=== PATIENT | male | born 1955 | race Caucasian/White ===

== ENCOUNTER 2018-02-17 09:24 | Inpatient (IN) | payer MEDICARE, MEDICAID ==
--- NOTE | 2018-02-17 10:41 | RAD ---
PORTABLE CHEST ONE VIEW: Date: 02-17-18 Time: 10:30 a.m. History: Fever. FINDINGS/IMPRESSION: The heart size is enlarged. The aorta is tortuous. There is mild pulmonary vascular congestion. A mil d infiltrate may be present at the right lung base. No pneumothoraces or large effusions are seen. POS: [facility]
[2018-02-17] MEDS ORDERED: ISOVUE-370 76%-LOCM 1 ML ONE (10:48)
[2018-02-17 10:55] LABS: #Basophils 0.2 thou/uL (0.0-0.2); #Eosinphils 0.1 thou/uL (0.0-0.7); #Lymphocytes 1.9 thou/uL (1.20-3.40); #Monocytes 1.4 thou/uL (0.11-0.59); #Neutrophils 13.6 thou/uL (1.40-6.50); %Basophils 0.9 % (0.0-1.0); %Eosinophils 0.6 % (0.0-10.0); %Lymphocytes 11.2 % (21.0-51.0); %Monocytes 8.3 % (0.0-10.0); Hemoglobin 10.7 g/dL (14.0-18.0); Mean Corpuscular HGB CONC 31.6 g/dL (32.0-36.0); Mean Corpuscular Hemoglobin 28.2 pg (27.0-31.0); Mean Corpuscular Volume 89.2 fL (78.0-98.0); Mean Platelet Volume 6.6 fL (7.4-10.4); Platelet Count 252 thou/uL (130-400); RBC Distribution Width 15.3 % (11.5-14.5); Red Blood Cell (RBC) Count 3.79 mill/uL (4.70-6.10); White Blood Cell (WBC) Count 17.2 thou/uL (4.8-10.8)
[2018-02-17 11:05] LABS: Bilirubin Negative (Negative); Blood, Urine Small (Negative); Glucose, Urine (Dipstick) Negative (Negative); Leukocyte Negative (Negative); Nitrite Negative (Negative); Protein, Urine (Dipstick) 30 mg/dL (Neg-Trace); Urobilinogen 0.2 mg/dL (0.2-1.0)
[2018-02-17 11:07] LABS: Clarity CLEAR (Clear)
[2018-02-17 11:12] LABS: Bacteria/HPF None Seen HPF (None Seen); Hyaline Casts/LPF NONE SEEN LPF (0-3 Hyaline); Squamous Epithelial 0-3 HPF (0-3); WBC/HPF None Seen HPF (0-3)
[2018-02-17 11:20] LABS: ALT (SGPT) 8 U/L (8-55); AST (SGOT) 22 U/L (5-34); Albumin 3.1 g/dL (3.4-4.8); Alkaline Phosphatase 74 U/L (40-150); Anion Gap 11 mmol/L (10-20); BUN (Urea Nitrogen) 18 mg/dL (8.4-25.7); Bilirubin, Total 0.3 mg/dL (0.2-1.2); CK (CPK) 28 U/L (30-200); Calc. Creatinine Clearance 0 mL/min (70-130); Calcium 9.2 mg/dL (7.8-10.44); Carbon Dioxide 26 mmol/L (23-31); Chloride 104 mmol/L (98-107); Estimated GFR-MDRD 88; Globulin 3.9 g/dL (2.4-3.5); Glucose 109 mg/dL (80-115); Lipase 19 U/L (8-78); Potassium 4.2 mmol/L (3.5-5.1); Sodium 137 mmol/L (136-145)
[2018-02-17 11:21] LABS: CKMB 0.7 ng/mL (0-6.6); Troponin I Less than 0.010 ng/mL (< 0.028)
[2018-02-17] MEDS ORDERED: Piperacillin/Tazobactam 4.5 GM VIAL ONE (11:40)
--- NOTE | 2018-02-17 12:46 | CT ---
CT BRAIN WITHOUT CONTRAST: HISTORY: Altered mental status. FINDINGS: No evidence of acute infarct, hemorrhage, midline shift, or abnormal extraaxial fluid collections are seen. The ventricular size is more prominent than expected for the degree of atrophy. The possibil ity of normal-pressure hydrocephalus should be considered. No acute infarct, hemorrhage, midline rosalie ft, or abnormal extraaxial fluid collections are seen. The bony calvarium is intact. There is mucos al disease in the paranasal sinuses. IMPRESSION: 1. No CT evidence of acute intracranial process. 2. Probable normal-pressure hydrocephalus. POS: [facility]
--- NOTE | 2018-02-17 13:10 | CT ---
CT ABDOMEN AND PELVIS WITH IV CONTRAST: HISTORY: Abdominal pain. FINDINGS: Minimal bilateral pleural fluid. Mild bibasilar lung atelectasis. Liver, spleen, kidneys, adrenal g lands, and pancreas have a normal CT appearance. Calcification within the arterial structures. Retr oaortic left renal vein. A small amount of free fluid within the lower abdomen and pelvis. Urinary bladder is decompressed by a Roberts catheter and shows marked thickening of the bladder escobedo. There is mild distention of each ureter and enhancement of each ureteral wall. No hyperdense stones are ev ident. IMPRESSION: 1. Thickening of the urinary bladder wall and ureteral escobedo. Clinical correlation regarding other signs and symptoms of urinary tract inflammation/infection is required. 2. A small amount of free fluid within the abdomen and pelvis was nonspecific. No other areas of in flammation are apparent. 3. Atherosclerosis. POS: [facility]
[2018-02-17 15:15] LABS: Lactic Acid 1.1 mmol/L (0.5-2.2)
[2018-02-17] MEDS ORDERED: Ondansetron ODT 4 MG TAB PO PRN (15:58)
[2018-02-17] MEDS ORDERED: Acetaminophen 325 MG TAB PO PRN (15:58)
[2018-02-17] MEDS ORDERED: Vancomycin HCl 750 MG in Sodium Chloride 0.9% 250 ML 250 ML IVPB SCH (17:00)
--- NOTE | 2018-02-17 17:03 | PDOC.FPRHP ---
- History of Present Illness Chief Complaint: Fever and AMS History of Present Illness: Mr Sanchez is a 62yo male with pmh of MR, DMII, seizure disorder who presented by EMS from [facility] nursing facility for fever up to 102.0 and AMS. Per ED report the assisted he is usually verbal has but has not been today, also refusing to eat. EMS reports being called due to pt tachycardia and hypotensive. Pt currently denies pain anywhere but his abdomen and left knee. ED Course: Levaquin 750mg, 3L NS, Vanc, Zosy, - Allergies/Adverse Reactions Allergies Allergy/AdvReac Type Severity Reaction Status Date / Time metformin Allergy Unverified 02/17/18 16:00 - Home Medications Medication Instructions Recorded Confirmed Type Finasteride 5 mg PO DAILY 02/17/18 02/17/18 History Folic Acid 2 tablet PO DAILY 02/17/18 02/17/18 History Gabapentin 300 mg PO TID 02/17/18 02/17/18 History Insulin Aspart [Novolog] 20 unit SQ AC 02/17/18 02/17/18 History Levothyroxine Sodium [Synthroid] 1 tablet PO DAILY 02/17/18 02/17/18 History Paterson-3 Acid Ethyl Esters [Lovaza] 1 gm PO BID 02/17/18 02/17/18 History Potassium Chloride 2 capsule PO BID 02/17/18 02/17/18 History Ranitidine HCl 150 mg PO DAILY 02/17/18 02/17/18 History Rosuvastatin Calcium [Crestor] 10 mg PO HS 02/17/18 02/17/18 History Tamsulosin HCl 2 capsule PO HS 02/17/18 02/17/18 History Valproic Acid (As Sodium Salt) 250 mg PO BID 02/17/18 02/17/18 History [Depakene] sitaGLIPtin Phosphate [Januvia] 1 tablet PO DAILY 02/17/18 02/17/18 History - History PMHx: Chronic ulcer of foot and sacrum, Chronic constipation, MR, HLD, HTN, DMII , Seizures, Hypothyroidism, chlamydial conjunctivitis, GERD, peripheral neuropathy PSHx: Dorsal slit fo rphimosis and urethral dilation for stricture FHx: None Social: Lives in assisted since 2008. Sister is POA. - Review of Systems ROS unobtainable: other (due to cognitive impairment) Musculoskeletal: reports: pain (knee and abdomen) - Vital signs BP: 103/63 HR: 82 RR: 20 Tmax: 97.8 Pox: 93% on RA Wt: 78kg - Physical Exam Constitutional: NAD HEENT: normocephalic and atraumatic, other (pt not cooperative for ear exam. Dry mucous membranes with poor oral hygiene. Right eye:) Neck: trachea midline Heart: RRR, other (radial pulses 2+) Lungs: CTAB, no respiratory distress, no wheezing Abdomen: soft, bowel sounds present, other (Painful to palpation in all 4 quadrants) Musculoskeletal: other -Musculoskeletal: atrophy of LE muscles Neurological: other (pt not able to move b/l LE, no patellar reflexes.) Skin: capillary refill <2 seconds, other (Sacral ulcer stage 4) Psychiatric: other (Not responding to questions. Pt with severe cognitive impairment) Additional comment: Mooney Catheter in place on arrival FMR H&P: Results - Labs Result Diagrams: 02/17/18 10:45 02/17/18 10:45 Lab results: WBC 17.2 thou/uL (4.8-10.8) H 02/17/18 10:45 Hgb 10.7 g/dL (14.0-18.0) L 02/17/18 10:45 Hct 33.9 % (42.0-52.0) L 02/17/18 10:45 MCV 89.2 fL (78.0-98.0) 02/17/18 10:45 Plt Count 252 thou/uL (130-400) 02/17/18 10:45 Neutrophils % 79.0 % (42.0-75.0) H 02/17/18 10:45 Sodium 137 mmol/L (136-145) 02/17/18 10:45 Potassium 4.2 mmol/L (3.5-5.1) 02/17/18 10:45 Chloride 104 mmol/L (98-107) 02/17/18 10:45 Carbon Dioxide 26 mmol/L (23-31) 02/17/18 10:45 BUN 18 mg/dL (8.4-25.7) 02/17/18 10:45 Creatinine 0.88 mg/dL (0.6-1.3) 02/17/18 10:45 Glucose 109 mg/dL (80-115) 02/17/18 10:45 Lactic Acid 1.1 mmol/L (0.5-2.2) 02/17/18 14:53 Calcium 9.2 mg/dL (7.8-10.44) 02/17/18 10:45 Total Bilirubin 0.3 mg/dL (0.2-1.2) 02/17/18 10:45 AST 22 U/L (5-34) 02/17/18 10:45 ALT 8 U/L (8-55) 02/17/18 10:45 Alkaline Phosphatase 74 U/L (40-150) 02/17/18 10:45 Ammonia 35 umol/L (18-72) 02/17/18 10:45 Creatine Kinase 28 U/L (30-200) L 02/17/18 10:45 CK-MB (CK-2) 0.7 ng/mL (0-6.6) 02/17/18 10:45 Serum Total Protein 7.0 g/dL (5.8-8.1) 02/17/18 10:45 Albumin 3.1 g/dL (3.4-4.8) L 02/17/18 10:45 Lipase 19 U/L (8-78) 02/17/18 10:45 Urine Ketones Negative mg/dL (Negative) 02/17/18 10:40 Urine Blood Small (Negative) H 02/17/18 10:40 Urine Nitrite Negative (Negative) 02/17/18 10:40 Ur Leukocyte Esterase Negative (Negative) 02/17/18 10:40 Urine RBC 4-6 HPF (0-3) 02/17/18 10:40 Urine WBC None Seen HPF (0-3) 02/17/18 10:40 Ur Squamous Epith Cells 0-3 HPF (0-3) 02/17/18 10:40 Urine Bacteria None Seen HPF (None Seen) 02/17/18 10:40 - Radiology Interpretation CT scan - abdomen Status: report reviewed by me Additional comment: Thickening of urinary bladder wall and ureteral escobedo. Small amt of free fluid w /i abdomen and pelvic nonspecific. Atherosclerosis CT scan - head Status: report reviewed by me Additional comment: No evidence of acute intracranial process. Probable normal pressure hydrocephalus Chest x-ray Status: report reviewed by me Additional comment: Heart size is enlarged. Aorta tortuous. Mild pulm vascular congestion. Mild infiltrate in Right lung base. FMR H&P: A/P - Problem List (1) Cognitive impairment Current Visit: Yes Status: Acute Code(s): R41.89 - OTH SYMPTOMS AND SIGNS W COGNITIVE FUNCTIONS AND AWARENESS (2) Leukocytosis Current Visit: Yes Status: Acute Code(s): D72.829 - ELEVATED WHITE BLOOD CELL COUNT, UNSPECIFIED (3) Normocytic anemia Current Visit: Yes Status: Acute Code(s): D64.9 - ANEMIA, UNSPECIFIED (4) Pneumonia Current Visit: Yes Status: Acute Code(s): J18.9 - PNEUMONIA, UNSPECIFIED ORGANISM (5) Sepsis Current Visit: Yes Status: Acute Code(s): A41.9 - SEPSIS, UNSPECIFIED ORGANISM - Plan Sepsis 2/2 HCAP - AMS, initially tachycardic, febrile, hypotensive with leukocytosis - Recent hospitalization and lives in nursing facility - Continue Zosyn, vanc. Adding levaquin for atypical coverage - UA no sign of infection - Ucx, Bcx pending - LR @ 130 - Will admit to [facility] - monitor urine output Abdominal Pain - CT: Thickening of urinary bladder wall and ureteral escobedo. Chronic Sacral Ulcer stage 4 - Consulted wound care - wound care consulted - nutrition consulted for recommendations DMII - Continue home Novolog and Glargine - Mod SSI - ACHS accuchecks - Hypoglycemic protocol Leukocytosis - 17.2 - likely 2/2 infection T2DM - continue home meds - accuchecks - mild SSI Normocytic anemia, chronic - Hg 10.7, at baseline when compared to previous - Monitor CBC Mental retardation - Seems to be back at baseline once moved up to [facility] Hypothyroid - Continue home synthroid GERD - Continue home meds HLD - Continue home statin HTN - Continue home lisinopril Hx urine retention - Mooney in place - Continue home flomax Chronic constipation - Continue home bowel regimen Epilepsy - Continue home Valproic acid FMR H&P: [place] - Pertinent history 62 yo M with hx of recent hospitalization for urosepsis and hx of MR, DM2, Hypothyroid, HLD, HTN, Chlamydial conjunctivitis here from his assisted with complaint by staff of AMS. He is apparently reasonably interactive at baseline, but today was difficult to arouse. At the time of admission pt would only answer yes and no questions. He denies chest pain, abdominal pain, suprapubic pain, SOB, and cough. He has a indwelling mooney that was placed during his previous hospitalization by urology. Upon arrival to ER he was febrile, had an elevated WBC count, and was at times hypotensive. He was given Vanc and Zosyn. Cultures were collected from blood and urine - Pertinent findings Vitals BP 107/72 HR 134 Resp 24 TMax 102.3 O2 Sat 96% on RA Labs WBC 17.2, 79% neutrophil Hb 10.7 Lactic acid 1.1 CXR - enlarged heart, mild pulmonary vascular congestion, possible RLL infiltrate CT brain - no acute process. possible NPH CT abd/pelv - thickening of bladder and uretheral wall. Small amount of non specific free fluid in abd/pelvis PE General: A&O x0, will only answer yes and no questions. Pt has significant MR, unclear what baseline is HEENT: Atraumatic normocephalic. L eye has yellow crusting CV - tachycardia, no murmurs Chest: No crackles or rales. Possible decreased breath sounds in RLL, however due to habitus auscultation is difficult Abdomen: Pt moves examiners hand when palpated, however this is a similar response to physical touch anywhere. When distracted, there is no guarding or painful reaction. BS x4 Skin: pt has stage 4 sacral ulcer, packed and clean - Plan Date/Time: 02/17/18 1702 Jarad Santiago DO, have evaluated this patient and agree with findings/plan as outlined by internal affairs commander resident. Pertinent changes/additions are listed here. Sepsis - unclear etiology at this time, most likely source is HCAP vs possible abdominal infection related to a surgical complication - Blood and urine cultures are pending. UA does not appear infected. - Continue vanc and zosyn, will add levaquin - Consult urology in am - After resuscitation BP and HR have stabilized. Monitor in IMCU. DM2 - continue home meds, ACHS accucheck, low carb diet HTN - Continue home meds Conjunctivitis - this is apparently long standing and possibly chlamydial. Will discuss with PCP for further information regarding previous treatment Hypothyroid - home synthroid Seizure disorder - Home valproic acid BPH - home finasteride Dispo: Guarded, continue care in IMCU and treat with broad spectrum abx until source can be better identified. Attending Addendum - Attending Addendum Date/Time: 02/17/182126 I personally evaluated the patient and discussed the management with the team. I agree with and repeated the History, Examination, Assessment and Plan documented above with any addition or exceptions noted below. Pt with severe cognitive disability. On exam today his mental status is very similar to when I saw him for sepsis on last admission. Unable to complete ROS 2/2 previously mentioned comorbidity. Exam relatively nonfocal. RRR, no murmur, Dec BS bilateral bases but no inc wob or crackles. BS+, NTTP, mild distension. Antibiotics with extended coverage for recent hospitalization. BC and UC. Reexamine his preexisting decubitus ulcer, which was stage 3. Continue fluids and closely monitor.
[2018-02-17] MEDS ORDERED: HumaLOG 300 UNITS/3 ML VIAL SC PRN ×2 (17:04→17:35)
[2018-02-17] MEDS ORDERED: Dextrose 5% in Water 1,000 ML IV PRN (17:04)
[2018-02-17] MEDS: Piperacillin/Tazobactam 4.5 GM in Sodium Chloride 0.9% 100 ML IVPB SCH (18:14)
[2018-02-17] MEDS: Lactated Ringer's 1,000 ML IV SCH ×2 (18:14→23:40)
[2018-02-17] MEDS: Valproate Sodium 250 MG in Sodium Chloride 0.9% 100 ML IVPB SCH (20:36)
[2018-02-17] MEDS: Gabapentin 300 MG CAP PO SCH (20:43)
[2018-02-17] MEDS: Potassium Chloride 10 MEQ TAB PO SCH (20:43)
[2018-02-17] MEDS: Fish Oil 1,000 MG CAP PO SCH (20:43)
[2018-02-17] MEDS: Rosuvastatin 10 MG TAB PO SCH (20:43)
[2018-02-17] MEDS: Tamsulosin HCl 0.4 MG CAP PO SCH (20:44)
[2018-02-17] MEDS ORDERED: Valproic Acid 250 MG CAP PO SCH (21:00)
[2018-02-18] MEDS: Piperacillin/Tazobactam 4.5 GM in Sodium Chloride 0.9% 100 ML IVPB SCH ×4 (00:37→16:13)
[2018-02-18 04:28] LABS: Anion Gap 11 mmol/L (10-20); BUN (Urea Nitrogen) 14 mg/dL (8.4-25.7); Calc. Creatinine Clearance 143 mL/min (70-130); Calcium 8.7 mg/dL (7.8-10.44); Carbon Dioxide 25 mmol/L (23-31); Chloride 109 mmol/L (98-107); Estimated GFR-MDRD Greater than 90; Potassium 3.7 mmol/L (3.5-5.1); Sodium 141 mmol/L (136-145)
[2018-02-18 04:30] LABS: Glucose 51 mg/dL (80-115)
[2018-02-18] MEDS: Vancomycin HCl 1.25 GM in Sodium Chloride 0.9% 250 ML 250 ML IVPB SCH ×2 (04:30→16:14)
[2018-02-18 04:37] LABS: #Eosinphils 0.1 thou/uL (0.0-0.7); #Lymphocytes 2.1 thou/uL (1.20-3.40); #Monocytes 0.8 thou/uL (0.11-0.59); %Basophils 0.3 % (0.0-1.0); %Eosinophils 1.1 % (0.0-10.0); %Lymphocytes 20.9 % (21.0-51.0); %Monocytes 8.2 % (0.0-10.0); %Neutrophils 69.5 % (42.0-75.0); Hemoglobin 9.4 g/dL (14.0-18.0); Mean Corpuscular HGB CONC 31.5 g/dL (32.0-36.0); Mean Corpuscular Volume 88.9 fL (78.0-98.0); Mean Platelet Volume 6.5 fL (7.4-10.4); Platelet Count 181 thou/uL (130-400); RBC Distribution Width 15.1 % (11.5-14.5); Red Blood Cell (RBC) Count 3.36 mill/uL (4.70-6.10); White Blood Cell (WBC) Count 10.1 thou/uL (4.8-10.8)
[2018-02-18] MEDS: Dextrose 50% Abboject 50 ML SYRINGE SLOW IVP PRN ×2 (04:38→11:46)
[2018-02-18] MEDS: Levothyroxine Sodium 100 MCG TAB PO SCH (06:45)
[2018-02-18] MEDS: HumaLOG 300 UNITS/3 ML VIAL SC SCH ×3 (07:55→15:52)
[2018-02-18] MEDS: Alogliptin 25 MG TAB PO SCH (08:47)
[2018-02-18] MEDS: Famotidine 20 MG TAB PO SCH (08:47)
[2018-02-18] MEDS: Folic Acid 1 MG TAB PO SCH (08:48)
[2018-02-18] MEDS: Finasteride 5 MG TAB PO SCH (08:48)
[2018-02-18] MEDS: Potassium Chloride 10 MEQ TAB PO SCH ×2 (08:48→19:24)
[2018-02-18] MEDS: Fish Oil 1,000 MG CAP PO SCH ×2 (08:48→19:23)
[2018-02-18] MEDS: Gabapentin 300 MG CAP PO SCH ×3 (08:48→19:23)
[2018-02-18] MEDS: Lactated Ringer's 1,000 ML IV SCH ×2 (09:06→13:55)
[2018-02-18] MEDS: Enoxaparin Sodium 40 MG/0.4 ML SYRINGE SC SCH (09:07)
--- NOTE | 2018-02-18 09:07 | PDOC.FM ---
- Subjective Subjective: Pt seen at bedside this am. He is resting comfortably and will respond to questions. Pt is baseline MR. There were no acute events over night. Pt denies pain or new symptoms - Objective MAR Reviewed: Yes Vital Signs & Weight: Vital Signs (12 hours) Temp Pulse Resp BP Pulse Ox 02/18/18 07:46 99 02/18/18 07:33 97.4 F L 81 17 122/77 96 02/18/18 04:00 97.6 F 84 18 108/70 96 02/18/18 00:00 97.8 F 90 18 117/78 94 L Weight Weight 76.839 kg I&O: 02/17/18 02/18/18 02/19/18 06:59 06:59 06:59 Intake Total 1850 Output Total 1200 Balance 650 Result Diagrams: 02/18/18 03:34 02/18/18 03:34 <Jarad Kramer - Last Filed: 02/18/18 09:05> - Objective Vital Signs & Weight: Vital Signs (12 hours) Temp Pulse Resp BP Pulse Ox 02/18/18 10:53 98.6 F 67 16 123/79 98 02/18/18 07:46 99 02/18/18 07:33 97.4 F L 81 17 122/77 96 02/18/18 04:00 97.6 F 84 18 108/70 96 Weight Admit Weight 75.432 kg Weight 76.839 kg I&O: 02/17/18 02/18/18 02/19/18 06:59 06:59 06:59 Intake Total 1850 Output Total 1200 Balance 650 Result Diagrams: 02/18/18 03:34 02/18/18 03:34 <Madison Hunter - Last Filed: 02/18/18 13:48> Phys Exam - Physical Examination Constitutional: NAD HEENT: moist MMs Neck: no JVD Respiratory: no wheezing Decreased air movement on L Cardiovascular: RRR, no significant murmur Gastrointestinal: soft, positive bowel sounds Suprapubic TTP Musculoskeletal: no edema Neurological: moves all 4 limbs Deviation from normal: MR at baseline. A&O x0 Deviation from normal: Sacral stage 4 ulcer clean and dressed <Jarad Kramer - Last Filed: 02/18/18 09:05> Dx/Plan (1) Sepsis Code(s): A41.9 - SEPSIS, UNSPECIFIED ORGANISM Status: Acute (2) Pneumonia Code(s): J18.9 - PNEUMONIA, UNSPECIFIED ORGANISM Status: Acute (3) Cognitive impairment Code(s): R41.89 - OTH SYMPTOMS AND SIGNS W COGNITIVE FUNCTIONS AND AWARENESS Status: Acute (4) Leukocytosis Code(s): D72.829 - ELEVATED WHITE BLOOD CELL COUNT, UNSPECIFIED Status: Acute (5) Normocytic anemia Code(s): D64.9 - ANEMIA, UNSPECIFIED Status: Acute (6) GERD (gastroesophageal reflux disease) Code(s): K21.9 - GASTRO-ESOPHAGEAL REFLUX DISEASE WITHOUT ESOPHAGITIS Status: Acute (7) Hypothyroid Code(s): E03.9 - HYPOTHYROIDISM, UNSPECIFIED Status: Acute (8) HLD (hyperlipidemia) Code(s): E78.5 - HYPERLIPIDEMIA, UNSPECIFIED Status: Acute (9) Mental retardation Code(s): F79 - UNSPECIFIED INTELLECTUAL DISABILITIES Status: Acute (10) DM2 (diabetes mellitus, type 2) Status: Acute (11) Sacral decubitus ulcer, stage IV Code(s): L89.154 - PRESSURE ULCER OF SACRAL REGION, STAGE 4 Status: Acute (12) Conjunctivitis Code(s): H10.9 - UNSPECIFIED CONJUNCTIVITIS Status: Acute - Plan Plan: Sepsis 2/2 HCAP - Pt doing much better this morning. Initial cultures are negative. Continue abx until finalization of cx, then change to narrow spectrum - Recent hospitalization and lives in nursing facility - Continue Zosyn, vanc. Adding levaquin for atypical coverage - Likely ready to move to floor this afternoon - monitor urine output - free fluid found on CT may also be source, consider uro consult who recently did a cystoscopy Abdominal Pain - CT: Thickening of urinary bladder wall and ureteral escobedo. - no evidence of bladder infection or enteric infection - Pt does not appear to be tender when distracted Chronic Sacral Ulcer stage 4, present on admission - Consulted wound care - wound care consulted - nutrition consulted for recommendations DMII - Continue home Novolog and Glargine - Mod SSI - ACHS accuchecks - Hypoglycemic protocol Leukocytosis, resolved - Monitor CBC Normocytic anemia, chronic - Hg 10.7, at baseline when compared to previous - Monitor CBC Mental retardation - at baseline Hypothyroid - Continue home synthroid GERD - Continue home meds HLD - Continue home statin HTN - Continue home lisinopril Hx urine retention - Roberts in place - Continue home flomax Chronic constipation - Continue home bowel regimen Epilepsy - Continue home Valproic acid Conjunctivitis - after discussion with PCP, this is apparently chronic. Unclear etiology. Consider outpatient ophtho consult Dispo: pt is currently stable. Continue to monitor and treat for a likely HCAP. Likely LOS greater than 48 hours. <Jarad Kramer - Last Filed: 02/18/18 09:05> Attending Addendum - Attending Addendum Date/Time: 02/18/18 7234 I personally evaluated the patient and discussed the management with Dr. Kramer I agree with the History, Examination, Assessment and Plan documented above with any addition or exceptions noted below. 62 yo male with multiple medical conditions admitted for sepsis 2/2 pulmonary vs geniourinary source HD#1 Doing well this morning. No complaints per patient overnight. No difficulty with breathing at present. Has indwelling urinary catheter for several weeks. VS reviewed. Labs reviewed. Imaging reviewed. Suspected sepsis at presentation: Pulmonary vs urinary source. Started on emperic antibiotics at admission. Hypotensive but improved with fluid resuscitation. Procal to be add this morning. Not done on admission. Cultures pending. Afebrile. Lactate WNL. Urine strep and legionella pending. Urinary retension with indwelling catheter: Hx of VUR as well. Will follow up with urology if plan to perform suprapubic. Will change catheter. UA not impressive for infection. Culture pending. Asymptomatic. CT positive for bladder wall and ureter thickening. Normal pressure hydrocephalus: Moderate cognitive disability. Needs assistance with ADLS. Chronic skin ulcers: Due to sedentary lifestyle and cognitive disability ulcers present. Wound care to manage. Adjust home meds as needed based on other co-morbidities. Monitor glucose. Correct with insulin. Awaiting speech to evaluate swallow. Possible transfer to medical later this afternoon. De-escalate antibiotics YUKI based on clinical symptoms and results. ABrmiMD <Madison Hunter - Last Filed: 02/18/18 13:48>
--- NOTE | 2018-02-18 10:28 | CON ---
DATE OF CONSULTATION: 02/18/2018 HISTORY: Nima Sanchez is a 62-year-old mentally retarded gentleman from [facility], who presen pasquale last night with hypotension and fever. Temperature was up to 102.9. In the ER his blood pressur e is 107/72, pulse 134. Sats were 90%. His weight is estimated at 78 kilos. Unable to get much history from the patient. PAST MEDICAL HISTORY: Outlined for epilepsy, pneumonia, high cholesterol, hypothyroidism, hypertensi on, bladder issues, recurrent UTIs. PAST SURGICAL HISTORY: Previous surgeries have included a previous cystoscopy. Dilatation for years . A sacral ulcer, in the past had a CT done which showed no osteomyelitis. Previous debridement. MEDICATIONS FROM [facility]: Includes Depakene, Crestor, finasteride 5, Januvia 5, tamsulosin 2 ca ps at bedtime, Synthroid, potassium, insulin, gabapentin and folic acid. ALLERGIES: METFORMIN. REVIEW OF SYSTEMS: Otherwise unobtainable. SOCIAL HISTORY: Apparently no alcohol or tobacco. PHYSICAL EXAMINATION: VITAL SIGNS: His sats are 90% on room air, temperature is 97, blood pressure is improved 122/73. H e received up to 3 liters of fluid. CHEST: No wheezing or crackles. CARDIAC: Normal S1, S2, no gallops. ABDOMEN: Soft. LABORATORY AND X-RAY FINDINGS: Glucose is 51. White count 10,000, H and H 9 and 29, platelet count 181. X-ray shows a questionable right-sided infiltrate. IMPRESSION: 1. Presumed recurrent urinary tract infection. 2. Right-sided pneumonia. 3. Mental retardation. PLAN: Awaiting Speech to start nutrition. I agree with vancomycin and Zosyn. Blood pressure is wel l controlled. We will follow. This is a consultation note, 70 minutes, 50% spent in direct patient care.
[2018-02-18] MEDS: Valproate Sodium 250 MG in Sodium Chloride 0.9% 100 ML IVPB SCH ×2 (11:41→21:20)
[2018-02-18 15:18] LABS: Strep pneumo Urine Ag NEGATIVE (NEGATIVE)
[2018-02-18] MEDS: Tamsulosin HCl 0.4 MG CAP PO SCH (19:24)
[2018-02-18] MEDS: Rosuvastatin 10 MG TAB PO SCH (19:24)
[2018-02-18] MEDS: Erythromycin Base 0.5% Oint 1 GM TUBE L EYE SCH (21:46)
[2018-02-19] MEDS: Lactated Ringer's 1,000 ML IV SCH ×4 (00:09→23:18)
[2018-02-19] MEDS: Piperacillin/Tazobactam 4.5 GM in Sodium Chloride 0.9% 100 ML IVPB SCH ×2 (00:09→05:31)
[2018-02-19 04:52] LABS: Vancomycin, Trough 19.2 ug/mL
[2018-02-19 04:55] LABS: Anion Gap 11 mmol/L (10-20); BUN (Urea Nitrogen) 12 mg/dL (8.4-25.7); Calc. Creatinine Clearance 132 mL/min (70-130); Calcium 8.7 mg/dL (7.8-10.44); Carbon Dioxide 25 mmol/L (23-31); Chloride 108 mmol/L (98-107); Estimated GFR-MDRD Greater than 90; Glucose 66 mg/dL (80-115); Potassium 3.7 mmol/L (3.5-5.1); Sodium 140 mmol/L (136-145)
[2018-02-19 05:16] LABS: Band 14 % (5-11); Eosinophils 2 % (0-10); Hemoglobin 9.4 g/dL (14.0-18.0); Lymphocytes 45 % (21-51); MDiff Complete? YES; Mean Corpuscular HGB CONC 32.2 g/dL (32.0-36.0); Mean Corpuscular Hemoglobin 28.2 pg (27.0-31.0); Mean Corpuscular Volume 87.8 fL (78.0-98.0); Mean Platelet Volume 7.4 fL (7.4-10.4); Monocytes 8 % (0-10); Neutrophil 31 % (42-75); PLT Morphology Comment Appears Adequate; Platelet Count 154 thou/uL (130-400); RBC Distribution Width 14.9 % (11.5-14.5); Red Blood Cell (RBC) Count 3.31 mill/uL (4.70-6.10); White Blood Cell (WBC) Count 7.7 thou/uL (4.8-10.8)
[2018-02-19] MEDS: Levothyroxine Sodium 100 MCG TAB PO SCH (05:16)
[2018-02-19] MEDS: Vancomycin HCl 1.25 GM in Sodium Chloride 0.9% 250 ML 250 ML IVPB SCH (06:20)
[2018-02-19] MEDS: Erythromycin Base 0.5% Oint 1 GM TUBE L EYE SCH ×2 (08:57→23:19)
[2018-02-19] MEDS: Enoxaparin Sodium 40 MG/0.4 ML SYRINGE SC SCH (08:57)
[2018-02-19] MEDS: HumaLOG 300 UNITS/3 ML VIAL SC SCH ×3 (08:59→16:37)
[2018-02-19] MEDS: Finasteride 5 MG TAB PO SCH (09:00)
[2018-02-19] MEDS: Alogliptin 25 MG TAB PO SCH (09:00)
[2018-02-19] MEDS: Famotidine 20 MG TAB PO SCH (09:00)
[2018-02-19] MEDS: Potassium Chloride 10 MEQ TAB PO SCH ×2 (09:00→23:15)
[2018-02-19] MEDS: Fish Oil 1,000 MG CAP PO SCH ×2 (09:00→23:13)
[2018-02-19] MEDS: Gabapentin 300 MG CAP PO SCH ×3 (09:00→23:14)
[2018-02-19] MEDS: Folic Acid 1 MG TAB PO SCH (09:00)
--- NOTE | 2018-02-19 09:22 | PDOC.FM ---
- Subjective Subjective: Pt found resting comfortably this morning. He has no specific complaints and denies all symptoms in ROS. There were no acute events over night. - Objective MAR Reviewed: Yes Vital Signs & Weight: Vital Signs (12 hours) Temp Pulse Resp BP Pulse Ox 02/19/18 07:37 98.8 F 81 18 132/84 98 02/19/18 04:00 97.8 F 77 20 121/77 96 02/19/18 00:00 98.6 F 84 20 126/84 95 Weight Admit Weight 75.432 kg Weight 76.294 kg I&O: 02/18/18 02/19/18 02/20/18 06:59 06:59 06:59 Intake Total 1850 1565 Output Total 1200 2000 Balance 650 -435 Result Diagrams: 02/19/18 04:09 02/19/18 04:09 <Jarad Kramer - Last Filed: 02/19/18 09:20> - Objective Vital Signs & Weight: Weight Admit Weight 75.432 kg Weight 78.67 kg Result Diagrams: 02/20/18 04:12 02/20/18 04:12 <Madison Hunter - Last Filed: 02/23/18 16:31> Phys Exam - Physical Examination Constitutional: NAD HEENT: PERRLA, moist MMs Neck: no JVD Respiratory: clear to auscultation bilateral Cardiovascular: RRR, no significant murmur Gastrointestinal: soft, non-tender, no distention Musculoskeletal: no edema Neurological: moves all 4 limbs Psychiatric: normal affect, A&O x 3 Skin: no rash, normal turgor <Jarad Kramer - Last Filed: 02/19/18 09:20> Dx/Plan (1) Sepsis Code(s): A41.9 - SEPSIS, UNSPECIFIED ORGANISM Status: Acute (2) Pneumonia Code(s): J18.9 - PNEUMONIA, UNSPECIFIED ORGANISM Status: Acute (3) Cognitive impairment Code(s): R41.89 - OTH SYMPTOMS AND SIGNS W COGNITIVE FUNCTIONS AND AWARENESS Status: Acute (4) Leukocytosis Code(s): D72.829 - ELEVATED WHITE BLOOD CELL COUNT, UNSPECIFIED Status: Acute (5) Normocytic anemia Code(s): D64.9 - ANEMIA, UNSPECIFIED Status: Acute (6) GERD (gastroesophageal reflux disease) Code(s): K21.9 - GASTRO-ESOPHAGEAL REFLUX DISEASE WITHOUT ESOPHAGITIS Status: Acute (7) Hypothyroid Code(s): E03.9 - HYPOTHYROIDISM, UNSPECIFIED Status: Acute (8) HLD (hyperlipidemia) Code(s): E78.5 - HYPERLIPIDEMIA, UNSPECIFIED Status: Acute (9) Mental retardation Code(s): F79 - UNSPECIFIED INTELLECTUAL DISABILITIES Status: Acute (10) DM2 (diabetes mellitus, type 2) Status: Acute (11) Sacral decubitus ulcer, stage IV Code(s): L89.154 - PRESSURE ULCER OF SACRAL REGION, STAGE 4 Status: Acute (12) Conjunctivitis Code(s): H10.9 - UNSPECIFIED CONJUNCTIVITIS Status: Acute - Plan Plan: Sepsis 2/2 HCAP - Pt doing well. Pending swallow study will move to PO meds. He will need 7 days of abx - Recent hospitalization and lives in nursing facility - monitor urine output - Due to possible aspiration as a cause of this pna, will order swallow study per ST recommendation Chronic Sacral Ulcer stage 4, present on admission - Consulted wound care - nutrition consulted for recommendations - clean and dressed DMII - Continue home Novolog and Glargine - Mod SSI - ACHS accuchecks - Hypoglycemic protocol Leukocytosis, resolved - Monitor CBC Normocytic anemia, chronic - Hg 10.7, at baseline when compared to previous - Monitor CBC Mental retardation - at baseline Hypothyroid - Continue home synthroid GERD - Continue home meds HLD - Continue home statin HTN - Continue home lisinopril Hx urine retention - Roberts in place - Continue home flomax Chronic constipation - Continue home bowel regimen Epilepsy - Continue home Valproic acid Conjunctivitis - after discussion with PCP, this is apparently chronic. Unclear etiology. Consider outpatient ophtho consult Dispo: pt is currently stable. Continue to monitor and treat for a likely HCAP. Likely LOS greater than 48 hours. <Jarda Kramer - Last Filed: 02/19/18 09:20> Attending Addendum - Attending Addendum Date/Time: 02/19/18 7315 I personally evaluated the patient and discussed the management with Dr. Kramer I agree with the History, Examination, Assessment and Plan documented above with any addition or exceptions noted below. 62 yo male with multiple medical conditions admitted for sepsis 2/2 pulmonary vs geniourinary source HD#2 Doing well this morning. No complaints per patient overnight. No difficulty with breathing at present. Has indwelling urinary catheter for several weeks due to urinary retention. VS reviewed. Labs reviewed. Suspected sepsis at presentation: Pulmonary vs urinary source. Started on emperic antibiotics at admission. Now resolved. Procal negative. Cultures pending but remain negative. Afebrile. Lactate WNL. Urine strep negative. Change antibiotics to Levofloxacin. Urinary retension with indwelling catheter: Hx of VUR as well. Change catheter. UA not impressive for infection. Culture pending. Asymptomatic. CT positive for bladder wall and ureter thickening -- urology reviewed, not concerned. Follow up outpatient. Normal pressure hydrocephalus: Moderate cognitive disability. Needs assistance with ADLS. Chronic skin ulcers: Due to sedentary lifestyle and cognitive disability ulcers present. Wound care to manage. Dysphagia: Failed bedside swallow. Awaiting barium. Adjust home meds as needed based on other co-morbidities. Monitor glucose. Correct with insulin. Diane <Madison Hunter - Last Filed: 02/23/18 16:31>
[2018-02-19] MEDS: Valproate Sodium 250 MG in Sodium Chloride 0.9% 100 ML IVPB SCH ×2 (12:31→23:45)
--- NOTE | 2018-02-19 13:25 | RAD ---
MODIFIED BARIUM SWALLOW: HISTORY Right lower lobe pneumonia. Evaluate for aspiration. Feeding difficulties. Dysphagia, oropharyngea l phase. EXPOSURE: 1.6 minutes, 0.865 uGy*^cm2. FINDINGS: In the presence of speech pathologist, the patient was administered thin liquid, nectar thick, puddin g, and solid consistencies. There is premature spillage of the aforementioned consistencies. There is penetration and aspiration with a thin liquid consistency. There is penetration of the nectar thi ck and pudding consistencies. There is also evidence of penetration and aspiration of solid consiste ncies. IMPRESSION: Please refer to speech pathology report for feeding recommendations. POS: [facility]
--- NOTE | 2018-02-19 19:32 | PRG ---
DATE OF SERVICE: 02/19/2018 SUBJECTIVE: Mr. Sanchez is in no distress. OBJECTIVE: VITAL SIGNS: Afebrile, heart rate is 81, respiratory rate is 18, oximetry is 98 on room air, blood p ressure 132/84. LUNGS: Clear. HEART: Regular rhythm. ABDOMEN: Soft and nontender. EXTREMITIES: Without clubbing, cyanosis or edema. Swallowing study shows aspiration. Chest radiograph on admission showed an infiltrate at his right base that is mild. White count 7.7, hemoglobin 9.4, platelets 154,000. Sodium 140, potassium 3.7, chloride 108, bicarbonate 25, BUN 12, creatinine 0.6. IMPRESSION: 1. Pneumonia, likely aspiration mediated. 2. Obesity. 3. Deconditioning. 4. Significant learning disability. 5. Leukocytosis, resolved. PLAN: Continue antibiotics. Switch him to p.o. antibiotics within 24 hours. Consider transfer back to his care environment 24 hours after that if he remains stable.
[2018-02-19] MEDS: Tamsulosin HCl 0.4 MG CAP PO SCH (23:15)
[2018-02-19] MEDS: Rosuvastatin 10 MG TAB PO SCH (23:15)
[2018-02-20 05:13] LABS: #Eosinphils 0.1 thou/uL (0.0-0.7); #Monocytes 0.6 thou/uL (0.11-0.59); #Neutrophils 3.1 thou/uL (1.40-6.50); %Basophils 0.3 % (0.0-1.0); %Eosinophils 1.2 % (0.0-10.0); %Lymphocytes 34.4 % (21.0-51.0); %Monocytes 10.5 % (0.0-10.0); %Neutrophils 53.6 % (42.0-75.0); Hemoglobin 9.3 g/dL (14.0-18.0); Mean Corpuscular HGB CONC 31.4 g/dL (32.0-36.0); Mean Corpuscular Hemoglobin 27.7 pg (27.0-31.0); Mean Corpuscular Volume 88.4 fL (78.0-98.0); Mean Platelet Volume 7.2 fL (7.4-10.4); Platelet Count 196 thou/uL (130-400); RBC Distribution Width 14.8 % (11.5-14.5); Red Blood Cell (RBC) Count 3.34 mill/uL (4.70-6.10); White Blood Cell (WBC) Count 5.8 thou/uL (4.8-10.8)
[2018-02-20 05:15] LABS: Anion Gap 11 mmol/L (10-20); BUN (Urea Nitrogen) 9 mg/dL (8.4-25.7); Calc. Creatinine Clearance 127 mL/min (70-130); Calcium 8.8 mg/dL (7.8-10.44); Carbon Dioxide 26 mmol/L (23-31); Chloride 107 mmol/L (98-107); Estimated GFR-MDRD Greater than 90; Glucose 114 mg/dL (80-115); Potassium 3.8 mmol/L (3.5-5.1); Sodium 140 mmol/L (136-145)
[2018-02-20] MEDS: Lactated Ringer's 1,000 ML IV SCH ×2 (06:28→14:16)
[2018-02-20] MEDS: Levothyroxine Sodium 100 MCG TAB PO SCH (06:29)
[2018-02-20] MEDS: HumaLOG 300 UNITS/3 ML VIAL SC SCH ×2 (08:03→12:19)
[2018-02-20] MEDS: Enoxaparin Sodium 40 MG/0.4 ML SYRINGE SC SCH (08:03)
[2018-02-20] MEDS: Folic Acid 1 MG TAB PO SCH (08:04)
[2018-02-20] MEDS: Fish Oil 1,000 MG CAP PO SCH (08:04)
[2018-02-20] MEDS: Potassium Chloride 10 MEQ TAB PO SCH (08:04)
[2018-02-20] MEDS: Finasteride 5 MG TAB PO SCH (08:04)
[2018-02-20] MEDS: Alogliptin 25 MG TAB PO SCH (08:04)
[2018-02-20] MEDS: Famotidine 20 MG TAB PO SCH (08:04)
[2018-02-20] MEDS: Gabapentin 300 MG CAP PO SCH ×2 (08:04→14:53)
--- NOTE | 2018-02-20 08:37 | PDOC.FM ---
- Subjective Subjective: Pt seen at bedside this morning with no specific complaints. There were no acute events over night. Pt denies pain or discomfort - Objective MAR Reviewed: Yes Vital Signs & Weight: Vital Signs (12 hours) Temp Pulse Resp BP Pulse Ox 02/20/18 07:53 98.0 F 78 18 114/70 97 02/20/18 04:00 98 F 83 18 117/77 97 02/20/18 00:00 97.6 F 83 16 134/84 96 Weight Admit Weight 75.432 kg Weight 78.67 kg I&O: 02/19/18 02/20/18 02/21/18 06:59 06:59 06:59 Intake Total 1565 Output Total 1999 Balance -435 Result Diagrams: 02/20/18 04:12 02/20/18 04:12 <Jarad Kramer - Last Filed: 02/20/18 08:32> - Objective Vital Signs & Weight: Weight Admit Weight 75.432 kg Weight 78.67 kg Result Diagrams: 02/20/18 04:12 02/20/18 04:12 <Madison Hunter - Last Filed: 02/23/18 16:35> Phys Exam - Physical Examination Constitutional: NAD HEENT: PERRLA, moist MMs Neck: no JVD Respiratory: clear to auscultation bilateral Cardiovascular: RRR, no significant murmur Gastrointestinal: soft, non-tender, no distention Musculoskeletal: no edema, pulses present Neurological: moves all 4 limbs Pt has baseline weakness in both LE. He does not ambulate at baseline Deviation from normal: Baseline affect. Pt has significant MR Skin: no rash <Jarad Kramer - Last Filed: 02/20/18 08:32> Dx/Plan (1) Sepsis Code(s): A41.9 - SEPSIS, UNSPECIFIED ORGANISM Status: Resolved (2) Pneumonia Code(s): J18.9 - PNEUMONIA, UNSPECIFIED ORGANISM Status: Acute (3) Cognitive impairment Code(s): R41.89 - OTH SYMPTOMS AND SIGNS W COGNITIVE FUNCTIONS AND AWARENESS Status: Acute (4) Leukocytosis Code(s): D72.829 - ELEVATED WHITE BLOOD CELL COUNT, UNSPECIFIED Status: Acute (5) Normocytic anemia Code(s): D64.9 - ANEMIA, UNSPECIFIED Status: Acute (6) GERD (gastroesophageal reflux disease) Code(s): K21.9 - GASTRO-ESOPHAGEAL REFLUX DISEASE WITHOUT ESOPHAGITIS Status: Acute (7) Hypothyroid Code(s): E03.9 - HYPOTHYROIDISM, UNSPECIFIED Status: Acute (8) HLD (hyperlipidemia) Code(s): E78.5 - HYPERLIPIDEMIA, UNSPECIFIED Status: Acute (9) Mental retardation Code(s): F79 - UNSPECIFIED INTELLECTUAL DISABILITIES Status: Acute (10) DM2 (diabetes mellitus, type 2) Status: Acute (11) Sacral decubitus ulcer, stage IV Code(s): L89.154 - PRESSURE ULCER OF SACRAL REGION, STAGE 4 Status: Acute (12) Conjunctivitis Code(s): H10.9 - UNSPECIFIED CONJUNCTIVITIS Status: Acute - Plan Plan: Sepsis 2/2 HCAP - PO levaquin for 7 total days abx - Swallow study shows significant aspiration. Recommendation from ST is puree nectar/thick diet Chronic Sacral Ulcer stage 4, present on admission - Consulted wound care - nutrition consulted for recommendations - clean and dressed DMII - Continue home Novolog and Glargine - Mod SSI - ACHS accuchecks - Hypoglycemic protocol Leukocytosis, resolved - Monitor CBC Normocytic anemia, chronic - Hg 10.7, at baseline when compared to previous - Monitor CBC Mental retardation - at baseline Hypothyroid - Continue home synthroid GERD - Continue home meds HLD - Continue home statin HTN - Continue home lisinopril Hx urine retention - Roberts in place - Continue home flomax Chronic constipation - Continue home bowel regimen Epilepsy - Continue home Valproic acid Conjunctivitis - Being treated for bacterial etiology. Continue in outpt setting. There was some concern for chlamydial infection, this test is pending. Dispo: pt is currently stable. DC home today <Jarad Kramer - Last Filed: 02/20/18 08:32> Attending Addendum - Attending Addendum Date/Time: 02/20/18 1361 I personally evaluated the patient and discussed the management with Dr. Kramer I agree with the History, Examination, Assessment and Plan documented above with any addition or exceptions noted below. 62 yo male with multiple medical conditions admitted for sepsis 2/2 pulmonary vs geniourinary source HD#3 Doing well this morning. No complaints per patient overnight. VS reviewed. Labs reviewed. Suspected sepsis at presentation: Pulmonary vs urinary source. Started on emperic antibiotics at admission. Now resolved. Procal negative. Cultures negative x 48 hours. Afebrile. Lactate WNL. Urine strep negative. Flu negative. On Levofloxacin. Urinary retention with indwelling catheter: Hx of VUR as well. No s/sx of urinary infection. Culture negative. CT positive for bladder wall and ureter thickening -- urology reviewed, not concerned. Follow up outpatient. Normal pressure hydrocephalus: Moderate cognitive disability. Needs assistance with ADLS. Chronic skin ulcers: Due to sedentary lifestyle and cognitive disability ulcers present. Wound care to manage. Dysphagia: Barium failed. Aspiration noted. Diet changed. Ok to d/c back to SNF. Diane <Madison Hunter - Last Filed: 02/23/18 16:35>
[2018-02-20] MEDS: Valproate Sodium 250 MG in Sodium Chloride 0.9% 100 ML IVPB SCH (09:22)
[2018-02-20] MEDS: Erythromycin Base 0.5% Oint 1 GM TUBE L EYE SCH (09:23)
[2018-02-20 11:54] VITALS: BP 98/50; TEMP 97.2
[2018-02-20 15:27] VITALS: BMI 27.8
--- NOTE | 2018-02-21 13:36 | EKG ---
Test Reason : Blood Pressure : / mmHG Vent. Rate : 130 BPM Atrial Rate : 130 BPM P-R Int : 144 ms QRS Dur : 072 ms QT Int : 286 ms P-R-T Axes : 062 028 054 degrees QTc Int : 420 ms Sinus tachycardia Cannot rule out Anterior infarct , age undetermined Abnormal ECG Confirmed by ELSIE CHOI, NIKOLAI Agudelo ([id number]), television news video editor MICHELLE LEGGETT ([id number]) on 02/21/2018 1:35:33 PM Referred By: Confirmed By:NIKOLAI ZIMMERMAN MD
[2018-02-21 15:06] LABS: Ref Lab Test Ordered CHLAMYDIA EYE BY NAA; Reference Lab Name LABCORP
== END 2018-02-20 17:11 | DRG 871 ==
LOC: ERS 09:24 → IMCU/EMU 15:56 → T4-B 02-18 15:05
PROVIDERS: ADMIT Family Medicine; ATTEND Family Medicine
DX: A41.9 Sepsis, unspecified organism (principal); L89.154 Pressure ulcer of sacral region, stage 4; J18.9 Pneumonia, unspecified organism; D64.9 Anemia, unspecified; E03.9 Hypothyroidism, unspecified; K21.9 Gastro-esophageal reflux disease without esophagitis; I10 Essential (primary) hypertension; K59.09 Other constipation; G40.909 Epilepsy, unspecified, not intractable, without status epilepticus; R33.9 Retention of urine, unspecified; F79 Unspecified intellectual disabilities; E11.9 Type 2 diabetes mellitus without complications; A00-B99 Certain infectious and parasitic diseases; N40.1 Benign prostatic hyperplasia with lower urinary tract symptoms; E66.9 Obesity, unspecified; Z68.27 Body mass index [BMI] 27.0-27.9, adult; Z88.8 Allergy status to other drugs, medicaments and biological substances; E78.00 Pure hypercholesterolemia, unspecified; Z87.440 Personal history of urinary (tract) infections; Y95 Nosocomial condition; Z79.4 Long term (current) use of insulin
CPT/HCPCS: 36415; 36416; 70450; 71045; 74177; 74230; 80048; 80053; 80202; 81003; 81015; 82140; 82553; 83605; 83690; 84145; 84484; 85025; 87040; 87086; 87491; 87804; 87899; 93005; 96361; 96365; 96366; 96367; 96368; A4216; G8996-GN-CK; G8996-GN-CN; G8997-GN-CK; J1650; J1956; J2543; J3370; J7050

== ENCOUNTER 2018-03-09 09:46 | Outpatient (CLI) | payer MEDICARE, OTHER ==
--- NOTE | 2018-03-09 19:20 | HP ---
DATE OF SERVICE: 03/09/2018 HISTORY OF PRESENT ILLNESS: Mr. Nima Sanchez is a 62-year-old gentleman who presents to the [facility] for evaluation of a pressure ulceration of the left ischium. The patient resides at [facility] . He is not accompanied by any family members or staff members from [facility]. The patient's [facility] history is significant for MR and he is unable to answer any questions today. PAST MEDICAL HISTORY: 1. MR. 2. Hypertension. 3. Diabetes mellitus. 4. Seizures. 5. Hypothyroidism. 6. Gastroesophageal reflux disease. 7. Anemia. PAST SURGICAL HISTORY: Surgery for phimosis and urethral stricture. MEDICATIONS: 1. Tamsulosin. 2. Synthroid. 3. Ranitidine. 4. Potassium chloride. 5. NovoLog. 6. Durham 3. 7. Gabapentin. 8. Folic acid. 9. Depakene. 10. Finasteride. 11. Januvia. 12. Crestor. ALLERGIES: METFORMIN. SOCIAL HISTORY: Negative for current tobacco or ETOH use. FAMILY HISTORY: Noncontributory. PHYSICAL EXAMINATION: VITAL SIGNS: Temperature 98.1, pulse 107, respirations 18, blood pressure 121/68. GENERAL: A 62-year-old gentleman lying on stretcher in examination room in no acute distress. HEENT: Normocephalic. NECK: No nuchal rigidity. CHEST: Clear to auscultation. CVS: Regular rate and rhythm. ABDOMEN: Soft. EXTREMITIES: No clubbing or cyanosis. BACK: A pressure ulceration of the left ischium is present which measures approximately 3 x 4 cm. N ecrotic and nonviable tissue present within the wound margins, first debrided with an excisional full -thickness debridement with the use of scissors. No purulent drainage is associated with the wound. . No cellulitis of the left ischial region is appreciated. No maceration of the skin of the p eriwound is noted. No bone is palpable within the wound margins on exam today. ASSESSMENT AND PLAN: 1. Left ischial pressure ulceration as described above. Dressing changes of Medihoney and gauze fol lowed by sacral Mepilex will be initiated today. These dressing changes are to be performed on a umang ly basis or alternatively every other day after cleansing and irrigation. No antibiotics will be pre scribed today based upon the appearance of the wound. Orders will also be transmitted to [facility] for dressing changes of Santyl and gauze on a daily basis after cleansing and irrigation if the jany ent's pressure ulceration fails to respond in a timely manner to dressing changes of Medihoney. 2. MR. 3. Hypertension. 4. Diabetes mellitus. 5. Seizure disorder. 6. Hypothyroidism. 7. Gastroesophageal reflux disease. 8. Anemia.
== END 2018-03-09 09:47 | disposition home or self-care (01) ==
LOC: WCC 09:46
PROVIDERS: ATTEND Family Medicine
DX: L89.329 Pressure ulcer of left buttock, unspecified stage (principal); I10 Essential (primary) hypertension; E11.9 Type 2 diabetes mellitus without complications; G40.909 Epilepsy, unspecified, not intractable, without status epilepticus; E03.9 Hypothyroidism, unspecified; K21.9 Gastro-esophageal reflux disease without esophagitis; D64.9 Anemia, unspecified; I34.0 Nonrheumatic mitral (valve) insufficiency

== ENCOUNTER 2018-03-20 02:10 | Inpatient (IN) | payer MEDICARE, MEDICAID ==
--- NOTE | 2018-03-20 02:17 | PDOC.FPRHP ---
- History of Present Illness Chief Complaint: UTI History of Present Illness: 62 yo male presents for evaluation of "puss coming from his mooney." Patient is resident at [facility]. Patient was found to have decreased urine output and concentration of urine earlier today. Then patient was to have mooney changed and nurse obtained approximately 800 ml of purulent material. Of note, patient has had mooney catheter since last hospitalization on 02/[address] Kidd with Urology. Mooney was not changed since that time. Up until tonight [facility] staff state he was at his baseline mentation, normal vital signs, and normal activity level. [facility] staff reported a fever to 101.8 and "rigors." Patient had mentation decreased to A&Ox1 and essentially non communicative. [facility] staff contacted PCP and was told to transfer patient to ED immediately. ED staff report brett puss was obtained from his bladder. No other history is able to be obtained. ED Course: 2L NS bolus Vancomycin Rocephin Tylenol - Allergies/Adverse Reactions Allergies Allergy/AdvReac Type Severity Reaction Status Date / Time metformin Allergy Verified 02/18/18 17:02 - Home Medications Medication Instructions Recorded Confirmed Type Finasteride 5 mg PO DAILY 02/17/18 03/20/18 History Folic Acid 2 tablet PO DAILY 02/17/18 03/20/18 History Gabapentin 300 mg PO TID 02/17/18 03/20/18 History Levothyroxine Sodium [Synthroid] 1 tablet PO DAILY 02/17/18 03/20/18 History Durham-3 Acid Ethyl Esters [Lovaza] 1 gm PO BID 02/17/18 03/20/18 History Potassium Chloride 2 capsule PO BID 02/17/18 03/20/18 History Ranitidine HCl 150 mg PO DAILY 02/17/18 03/20/18 History Rosuvastatin Calcium [Crestor] 10 mg PO HS 02/17/18 03/20/18 History Tamsulosin HCl 2 capsule PO HS 02/17/18 03/20/18 History Docusate [Colace] 100 mg PO DAILY 03/20/18 03/20/18 History Valproic Acid (As Sodium Salt) 250 mg PO BID 03/20/18 03/20/18 History [Depakene] sitaGLIPtin Phosphate [Januvia] 25 mg PO DAILY 03/20/18 03/20/18 History - History PMHx: HTN, HLD, DM2, Seizure disorder, GERD, peripheral neuropathy, cognitive impairment, chronic constipation, hypothyroidism, chronic sacral decubitus ulcer. PSHx: Dorsal slit for phimosis. Urethral dilation for stricture FHx: Non-contributory Social: [facility] resident since 2008. Sister is PATRICIA. - Review of Systems ROS unobtainable: due to mental status (Patient does not report any pain.) - Vital signs BP: 133/72 HR: 122 RR: 22 Tmax: 99.3 Pox: 94% on RmAir Wt: 77 kg - Physical Exam -Constitutional: Cognitive impairment at baseline. A&Ox1 HEENT: normocephalic and atraumatic, PERRLA -HEENT: Left eye mattering and edema present. Neck: supple, trachea midline Chest: no-tender to palpation Heart: normal S1/S2, no murmurs/rubs/gallops, pulses present, no edema -Heart: Tachycardic rate, regular rhythm Lungs: CTAB, no respiratory distress, good air movement, no wheezing Abdomen: soft, non-tender, bowel sounds present, no masses/distention -Musculoskeletal: Atrophy of lower extremities bilaterally Neurological: no focal deficit -Neurological: Unable to be obtained -Skin: Sacral decubitus ulcer present Heme/Lymphatic: no unusual bruising or bleeding -Psychiatric: Unable to be obtained FMR H&P: Results - Labs Result Diagrams: 03/22/18 07:49 03/21/18 03:29 - EKG Interpretation EK lead EKG shows, sinus tachycardia, Rate (beats per minute): 116, with no ectopics, Conduction normal, ST segments normal, T waves normal, [place] normal. - Radiology Interpretation Chest x-ray Status: image reviewed by me, pending (Appears to be improvement in right lobe infiltrate) FMR H&P: A/P - Problem List (1) Sepsis secondary to UTI Current Visit: Yes Status: Acute Code(s): A41.9 - SEPSIS, UNSPECIFIED ORGANISM; N39.0 - URINARY TRACT INFECTION, SITE NOT SPECIFIED (2) DEL (acute kidney injury) Current Visit: Yes Status: Acute Code(s): N17.9 - ACUTE KIDNEY FAILURE, UNSPECIFIED (3) Hyperkalemia Current Visit: Yes Status: Acute Code(s): E87.5 - HYPERKALEMIA (4) Sacral decubitus ulcer, stage IV Current Visit: No Status: Acute Code(s): L89.154 - PRESSURE ULCER OF SACRAL REGION, STAGE 4 (5) Cognitive impairment Current Visit: No Status: Acute Code(s): R41.89 - OTH SYMPTOMS AND SIGNS W COGNITIVE FUNCTIONS AND AWARENESS (6) DM2 (diabetes mellitus, type 2) Current Visit: No Status: Acute (7) GERD (gastroesophageal reflux disease) Current Visit: No Status: Acute Code(s): K21.9 - GASTRO-ESOPHAGEAL REFLUX DISEASE WITHOUT ESOPHAGITIS (8) HLD (hyperlipidemia) Current Visit: No Status: Acute Code(s): E78.5 - HYPERLIPIDEMIA, UNSPECIFIED (9) Hypothyroid Current Visit: No Status: Acute Code(s): E03.9 - HYPOTHYROIDISM, UNSPECIFIED (10) Seizure disorder Current Visit: Yes Status: Acute Code(s): G40.909 - EPILEPSY, UNSP, NOT INTRACTABLE, WITHOUT STATUS EPILEPTICUS - Plan 1. UTI with sepsis - Continue antibiotics - IVF resuscitation s/p 2L in ED. Currently NS @ 150 ml/hr - Urine and blood culture pending - Likely secondary to mooney catheter placement - Consider Urology consultation for alternative management - WBC 12.5, Lactate 2.2 on admission 2. DEL - Cr 2.2, elevated above baseline - IVF - Repeat BMP 3. Hyperkalemia - 5.4 on admission - Calcium gluconate - Kayexalate - Albuterol - Insulin - Repeat BMP @ 0900 #. Sacral decubitus ulcer - Wound care consultation - Continue supportive care #. DM2 - Continue home insulin regimen - accuchecks - SSI #. Seizure disorder - Continue home medications - Monitor for signs or symptoms of seizure activity #. Hypothyroidism - Continue home medications #. HLD - Continue home medications #. HTN - Hold home medications at this time - Resume when BP will tolerate - Routine vital sign monitoring #. GERD - Continue home medications #. Cognitive impairment - Safety precautions - Fall precautions - Notify sister who is POA CODE STATUS: FULL CODE PCP: Tanmay MA Disposition: Stable, will admit to inpatient medicine service. Attending Addendum - Attending Addendum Date/Time: 03/20/18 0822 I personally evaluated the patient and discussed the management with Dr. Whitlock I agree with the History, Examination, Assessment and Plan documented above with any addition or exceptions noted below. 62 yo male with history of sepsis related to UTI admitted for sepsis HD#1 Patient sleepy and not responding verbally. Only opens eyes to voice. BP now hypotensive. Stat labs and transfer to [facility]. Fluid bolus started. Otherwise stable vitals. 1. Sepsis: Borderline shock. Trend procal. Expland antibiotic coverage. Move to IMCU due to BP and decreased mental status. Continue fluid support. Pressors as needed. Cultures pending. Likely bacteremic. 2. Urinary tract infections: Cultures pending. Expand coverage for Pseudomonas and ESBL. 3. Chronic indewelling mooney: likely source. Recently changed prior to admission. Will discuss need for suppra pubic cath with urology today. 4. Sacral ulcer: ESR > 100. MRI, gen surg, wound care consulted. Rule out osteo. Bone scan ordered. 5. DEL Adjust home meds as needed. Diane
[2018-03-20 02:31] LABS: Hemoglobin 11.1 g/dL (14.0-18.0); Mean Corpuscular HGB CONC 31.5 g/dL (32.0-36.0); Mean Corpuscular Hemoglobin 26.5 pg (27.0-31.0); Mean Platelet Volume 6.4 fL (7.4-10.4); Platelet Count 349 thou/uL (130-400); RBC Distribution Width 14.6 % (11.5-14.5); Red Blood Cell (RBC) Count 4.21 mill/uL (4.70-6.10); White Blood Cell (WBC) Count 12.5 thou/uL (4.8-10.8)
[2018-03-20] MEDS ORDERED: cefTRIAXone\\ROCEPHIN 1 GM VIAL ONE ×3 (02:46→02:56)
[2018-03-20] MEDS ORDERED: cefTRIAXone\\ROCEPHIN 2 GM VIAL ONE (02:49)
[2018-03-20 02:51] LABS: Band 10 % (5-11); Hypochromia SLIGHT = 6-15 cells (100X) (0-5/hpf); Lymphocytes 11 % (21-51); MDiff Complete? YES; Monocytes 1 % (0-10); Neutrophil 77 % (42-75); PLT Morphology Comment Appears Adequate; Polychromasia SLIGHT = 2-3 cells (100X) (0-2/hpf); Promyelocytes 1 % (0-0)
[2018-03-20 02:52] LABS: ALT (SGPT) 17 U/L (8-55); AST (SGOT) 35 U/L (5-34); Alkaline Phosphatase 95 U/L (40-150); Anion Gap 15 mmol/L (10-20); BUN (Urea Nitrogen) 8 mg/dL (8.4-25.7); Bilirubin, Total 0.4 mg/dL (0.2-1.2); Calc. Creatinine Clearance 0 mL/min (70-130); Calcium 9.1 mg/dL (7.8-10.44); Carbon Dioxide 20 mmol/L (23-31); Chloride 104 mmol/L (98-107); Estimated GFR-MDRD 30; Globulin 3.8 g/dL (2.4-3.5); Glucose 163 mg/dL (80-115); Potassium 5.4 mmol/L (3.5-5.1); Protein, Total 6.8 g/dL (5.8-8.1); Sodium 134 mmol/L (136-145)
[2018-03-20 02:59] LABS: Bilirubin Negative (Negative); Blood, Urine Large (Negative); Clarity TURBID (Clear); Glucose, Urine (Dipstick) Negative (Negative); Leukocyte Large (Negative); Nitrite Negative (Negative); Protein, Urine (Dipstick) 300 mg/dL (Neg-Trace); Specific Gravity, Urine 1.013 (1.002-1.036)
[2018-03-20 03:03] LABS: Bacteria/HPF Rare-Few HPF (None Seen); Pathc Cast-AUWi Flag 872.57 (0-2.49); Yeast-AUWi Flag 565.6 (0-25.0)
[2018-03-20 03:14] LABS: Crystals/HPF None Seen HPF (Negative); Other Casts/LPF None Seen LPF (0-3 Hyaline); Yeast-All Forms None Seen HPF (None Seen)
[2018-03-20 03:15] LABS: Hyaline Casts/LPF 0-3 HYALINE CAST LPF (0-3 Hyaline)
[2018-03-20] MEDS ORDERED: HumaLOG 300 UNITS/3 ML VIAL SC PRN (03:36)
[2018-03-20] MEDS ORDERED: Calcium Gluconate 4.6 MEQ in Sodium Chloride 0.9% 100 ML IVPB SCH (03:36)
[2018-03-20] MEDS ORDERED: Albuterol Sulfate 2.5 mg/3 ml Neb NEB SCH (03:36)
[2018-03-20] MEDS ORDERED: Dextrose 5% in Water 1,000 ML IV PRN (03:36)
[2018-03-20] MEDS ORDERED: Dextrose 50% Abboject 50 ML SYRINGE SLOW IVP PRN (03:36)
[2018-03-20] MEDS ORDERED: Nitroglycerin 50 MG/250 ML BOT 250 ML ONE ×2 (03:55)
[2018-03-20 06:47] LABS: Lactic Acid 1.4 mmol/L (0.5-2.2)
[2018-03-20] MEDS: Sodium Chloride 0.9% 1,000 ML IV SCH ×4 (07:49→22:34)
[2018-03-20] MEDS: Acetaminophen 325 MG TAB PO PRN ×3 (07:57→20:23)
[2018-03-20] MEDS: Alogliptin 6.25 MG TAB PO SCH (08:05)
[2018-03-20] MEDS: Folic Acid 1 MG TAB PO SCH (08:05)
[2018-03-20] MEDS: Levothyroxine Sodium 100 MCG TAB PO SCH (08:05)
[2018-03-20] MEDS: Gabapentin 300 MG CAP PO SCH ×3 (08:05→20:27)
[2018-03-20] MEDS: Famotidine 20 MG TAB PO SCH (08:06)
[2018-03-20] MEDS: Fish Oil 1,000 MG CAP PO SCH ×2 (08:06→20:23)
[2018-03-20] MEDS: Finasteride 5 MG TAB PO SCH (08:06)
--- NOTE | 2018-03-20 08:06 | RAD ---
SINGLE VIEW OF THE CHEST: COMPARISON: 02/17/2018. HISTORY: Urinary tract infection and sepsis. Fever. FINDINGS: Single view of the chest shows a normal sized cardiomediastinal silhouette. There is no evidence of c onsolidation, mass, or pleural effusion. The bones are unremarkable. IMPRESSION: No evidence of acute cardiopulmonary disease. POS: [facility]
[2018-03-20] MEDS ORDERED: Vancomycin HCl 1 GM in Premix Bag 1 BAG IVPB SCH (09:00)
[2018-03-20] MEDS ORDERED: OMEGA ACID ETHYL ESTERS PO SCH (09:00)
[2018-03-20] MEDS ORDERED: Heparin 5,000 UNITS/ML VIAL SC SCH (09:00)
[2018-03-20] MEDS ORDERED: Non-Formulary Item 1 EACH (Ranitidine Hcl [Ranitidine Hcl] 150 MG) PO SCH (09:00)
[2018-03-20 09:27] LABS: Anion Gap 15 mmol/L (10-20); BUN (Urea Nitrogen) 28 mg/dL (8.4-25.7); Calc. Creatinine Clearance 68 mL/min (70-130); Calcium 8.8 mg/dL (7.8-10.44); Carbon Dioxide 21 mmol/L (23-31); Chloride 108 mmol/L (98-107); Estimated GFR-MDRD 61; Glucose 160 mg/dL (80-115); Potassium 4.5 mmol/L (3.5-5.1); Sodium 139 mmol/L (136-145)
[2018-03-20] MEDS: Valproic Acid 250 MG CAP PO SCH ×2 (09:34→20:23)
--- NOTE | 2018-03-20 10:46 | PDOC.FM ---
- Subjective Subjective: 62 yo gentleman with MR, Type 2 Diabetes, and urinary retention with mooney placed during last hospitalization who presents from the [facility] with fever and puss from his mooney admitted for sepsis 2/2 UTI vs left sacral ulcer. A&0x2 this morning. Difficult to understand. Tachycardic and 100.3 temp. - Objective MAR Reviewed: Yes Vital Signs & Weight: Vital Signs (12 hours) Temp Pulse Pulse Pulse Resp BP BP 03/20/18 10:04 111 H 115 H 98/56 L 03/20/18 08:00 03/20/18 07:30 100.3 F H 134 H 20 138/71 03/20/18 06:34 03/20/18 06:29 114 H 20 03/20/18 02:16 97.8 F 98 18 106/65 Pulse Ox Pulse Ox 03/20/18 10:04 100 03/20/18 08:00 100 03/20/18 07:30 100 03/20/18 06:34 100 03/20/18 06:29 100 03/20/18 02:16 99 Weight Weight 75.41 kg Result Diagrams: 03/20/18 12:52 03/20/18 08:54 <Mary Monae - Last Filed: 03/20/18 15:16> - Objective Vital Signs & Weight: Vital Signs (12 hours) Temp Pulse Resp BP BP Pulse Ox 03/21/18 19:35 98.5 F 88 20 112/67 96 03/21/18 18:20 98.7 F 97 16 114/68 98 03/21/18 15:28 98.2 F 96 18 103/61 98 03/21/18 11:01 97.9 F 84 18 103/66 100 Weight Admit Weight 75.41 kg Weight 77.111 kg I&O: 03/20/18 03/21/18 03/22/18 06:59 06:59 05:59 Intake Total 2500 1250 Output Total 760 1200 Balance 1740 50 Result Diagrams: 03/20/18 12:52 03/21/18 03:29 <Madison Hunter - Last Filed: 03/21/18 21:43> Phys Exam - Physical Examination Constitutional: NAD HEENT: PERRLA, oral pharynx no lesions left eye has exudate Respiratory: no wheezing, no rales, clear to auscultation bilateral Cardiovascular: no significant murmur tachycardic Gastrointestinal: soft, non-tender, no distention Musculoskeletal: no edema, pulses present a&ox2; follows commands, dysarthric speech Deviation from normal: left eye with minimal exudate <Mary Monae - Last Filed: 03/20/18 15:16> Dx/Plan (1) Sacral decubitus ulcer Code(s): L89.159 - PRESSURE ULCER OF SACRAL REGION, UNSPECIFIED STAGE Status: Acute (2) Hyperkalemia Code(s): E87.5 - HYPERKALEMIA Status: Acute (3) DM2 (diabetes mellitus, type 2) Status: Acute (4) HLD (hyperlipidemia) Code(s): E78.5 - HYPERLIPIDEMIA, UNSPECIFIED Status: Acute (5) Hypothyroid Code(s): E03.9 - HYPOTHYROIDISM, UNSPECIFIED Status: Acute (6) Mental retardation Code(s): F79 - UNSPECIFIED INTELLECTUAL DISABILITIES Status: Acute - Plan Plan: 62 yo gentleman with MR, urine retention with mooney, and type 2 diabetes 1.)Septic shock- -source is likely urine, but can't rule out sacral decubitus ulcer, or chronic conjunctivitis -spoke with wound care who saw necrotic tissue when cleaning ulcer. Ordered ESR , will consult surgery -unclear if mooney was replaced after pt saw Dr. March on 03/15; will call NH to investigate -hypotensive, febrile and tachycardic again this morning, will provide another bolus of fluids -original urine and blood cx pending -Initial EKG showed sinus tachycardia, repeat ordered as well as cardiac enzymes , lactic acid, procal -reviewed prior urine cx and switched patient to zosyn from rocephin for better pseudomonas coverage. Proteus grown and resistant to ceftriazone on prior culture. -will repeat cbc, bmp tomorrow am 2.)Urine retention with mooney -will consult Dr. March, pt's urologist and figure out when mooney was last replaced 3.)Hyperkalemia -Treated in the ER -Will recheck at noon 4.)Type 2 diabetes -hypoglycemic protocol -sliding scale insulin -continue lantus -accuchecks achs -held Januvia 5.) Seizure disorder - Depakote - Monitor for signs or symptoms of seizure activity 6. Hypothyroidism - Synthroid 7.) HLD - Rosuvstatin 8.) GERD - pepcid 10.) Cognitive impairment - Safety precautions - Fall precautions - Notify MPOA <Mary Monae - Last Filed: 03/20/18 15:16> Attending Addendum - Attending Addendum Date/Time: 03/20/18 3636 I personally evaluated the patient and discussed the management with Dr. Monae I agree with the History, Examination, Assessment and Plan documented above with any addition or exceptions noted below. 62 yo male with history of sepsis related to UTI admitted for sepsis HD#1 Patient sleepy and not responding verbally. Only opens eyes to voice. BP now hypotensive. Stat labs and transfer to IMCU. Fluid bolus started. Otherwise stable vitals. 1. Sepsis: Borderline shock. Trend procal. Expland antibiotic coverage. Move to IMCU due to BP and decreased mental status. Continue fluid support. Pressors as needed. Cultures pending. Likely bacteremic. 2. Urinary tract infections: Cultures pending. Expand coverage for Pseudomonas and ESBL. 3. Chronic indewelling mooney: likely source. Recently changed prior to admission. Will discuss need for suppra pubic cath with urology. 4. Sacral ulcer: ESR > 100. MRI, gen surg, wound care consulted. Rule out osteo. 5. DEL Adjust home meds as needed. ABrayMD <Madison Hunter - Last Filed: 03/21/18 21:43>
[2018-03-20] MEDS ORDERED: Sodium Chloride 0.9% 500 ML IV SCH ×2 (11:30→15:15)
[2018-03-20] MEDS: Piperacillin/Tazobactam 3.375 GM in Sodium Chloride 0.9% 100 ML IVPB SCH ×3 (11:37→22:33)
[2018-03-20 12:42] LABS: Lactic Acid 1.3 mmol/L (0.5-2.2)
[2018-03-20 12:45] LABS: CKMB 0.6 ng/mL (0-6.6); Troponin I Less than 0.010 ng/mL (< 0.028)
[2018-03-20 13:02] LABS: Hemoglobin 9.1 g/dL (14.0-18.0); Mean Corpuscular HGB CONC 32.1 g/dL (32.0-36.0); Mean Corpuscular Hemoglobin 27.6 pg (27.0-31.0); Mean Corpuscular Volume 85.7 fL (78.0-98.0); Mean Platelet Volume 6.5 fL (7.4-10.4); Platelet Count 286 thou/uL (130-400); RBC Distribution Width 14.4 % (11.5-14.5); Red Blood Cell (RBC) Count 3.29 mill/uL (4.70-6.10); White Blood Cell (WBC) Count 10.9 thou/uL (4.8-10.8)
[2018-03-20] MEDS: Insulin Glargine 50 UNITS in Pre-Filled Syringe 1 EACH SC SCH ×2 (13:41→21:15)
[2018-03-20] MEDS: Vancomycin HCl 1 GM in Premix Bag 1 BAG IVPB SCH (14:52)
--- NOTE | 2018-03-20 17:35 | PDOC.EVN ---
Event Note - Event Note Event Note: Spoke with [facility] nurse who confirmed that a new mooney was placed this morning before transfer to the ER, . Spoke with Dr. Joaquim knox
[2018-03-20] MEDS: Tamsulosin HCl 0.4 MG CAP PO SCH (20:26)
[2018-03-20] MEDS: Rosuvastatin 10 MG TAB PO SCH (20:26)
--- NOTE | 2018-03-20 20:33 | PDOC.EVN ---
Event Note - Event Note Event Note: Pt transferred from [facility] and now in IMCU. Pt appears more alert compared to prior reports. He demonstrates tachycardia and rigors on exam. O: P-116 SBP in 130s. Afebrile. A/P. - will plan to continue monitoring in IMCU. - administer 500 cc bolus of NS. - influenza panel. <Cat Valdovinos - Last Filed: 03/21/18 06:14> - Event Note Event Note: Patient much improved after change in antibiotics and fluid resuscitation. Continue IMCU monitoring overnight. If continues to remain stable will refer back to floor in AM. Cultures pending. Awaiting imaging to rule out osteo. ABrayMD <Madison Hunter - Last Filed: 03/21/18 21:45>
--- NOTE | 2018-03-20 21:00 | CON ---
DATE OF CONSULTATION: 03/20/2018 HISTORY OF PRESENT ILLNESS: Mr. Sanchez is a 62-year-old male I am familiar with. He has a severe learning disability. Apparently, he was admitted to the hospital for purulent urine drainage into his Roberts. There is a fever reported to the [facility]. He has been transferred to the Intermediate Care Unit for monitoring of his blood pressure. Temperature maximum since he has been admitted at this time has been 100.3. PAST MEDICAL HISTORY: 1. Remarkable for severe learning disability. 2. Chronic indwelling Roberts. 3. History of seizure disorder. 4. History of lipid disorder. 5. Hypothyroidism, on replacement. 6. History of hypertension. 7. History of urethral dilation in the past. 8. History of cystoscopy in the past. 9. History of sacral decubitus ulcer that has been debrided in the past. SOCIAL HISTORY: Non-smoker, nondrinker, nondrug user. ALLERGIES: METFORMIN reported. MEDICATIONS PRIOR TO ADMISSION: Have been reviewed. FAMILY HISTORY: Noncontributory, no history of lung disease in early age. SOCIAL HISTORY: He is a [facility] resident with severe learning disability. PHYSICAL EXAMINATION: VITAL SIGNS: He is afebrile, heart rate 74, respiratory rate is 18, oximetry is 100% on 2 liters, blood pressure 93/59. Normal blood pressure reviewing old records is 110-120 systolic. HEENT: His pupils are equal. His sclerae is anicteric. NECK: Supple. LUNGS: Clear. HEART: Regular rhythm. ABDOMEN: Soft and nontender. NEUROLOGIC: He does not like cooperating with exams. LABORATORY DATA: White count 10.9, hemoglobin 9.1, platelets 286. Sodium 139, potassium 4.5, chloride 108, bicarbonate 21, BUN 28, creatinine 1.21. His BUN in February was between 9 and 18. Urine culture does clearly show one organism at this time. IMPRESSION: Chronic indwelling Roberts with? fever prior to admission. He might be a candidate and be better served with a suprapubic catheter given his frequent admissions for urinary tract issues. I would defer this to Urology and consider consulting Urology. At this point in time, he appears to be clinically stable. His antibiotics should be deescalated as quickly as possible, but based on cultures, I suspect he has a significant component of intravascular volume depletion. This is a 50 minute consult with 50% of time spent on unit coordinating care. MAIKEL
--- NOTE | 2018-03-20 22:32 | CON ---
DATE OF CONSULTATION: 03/20/2018 GENERAL SURGERY CONSULTATION CHIEF COMPLAINT: Chronic decubitus. HISTORY: The patient is a 62-year-old male who lives in a skilled nursing. Apparently, he has had a ch ronic decubitus on his right ischium for months, if not years. It is treated by Wound Care. He was admitted with a fever that apparently is thought to be due to urinary tract infection from chronic in dwelling Roberts. His fevers resolved now on antibiotics. PAST MEDICAL HISTORY: Significant for mental retardation, obesity, hypertension, diabetes, history o f seizures, gastroesophageal reflux, and chronic ischial decubitus. PAST SURGICAL HISTORY: He has had a dorsal slit for phimosis. MEDICATIONS: Finasteride, folate, gabapentin, insulin, Synthroid, potassium, ranitidine, tamsulosin, valproic acid, Januvia, Levaquin. ALLERGIES: Metformin. SOCIAL HISTORY: Lives in a skilled nursing. FAMILY HISTORY: Unknown. PHYSICAL EXAMINATION: VITAL SIGNS: Temperature 98.3, pulse 97, blood pressure 89/59. GENERAL: He is awake, but aphasic. He is obese. LUNGS: Clear. HEART: Regular rate and rhythm. ABDOMEN: Obese, soft, nontender. He has an indwelling Roberts in place. BACK: He has a healed sacral decubitus. He has a 4 cm opening on the right ischium that is very yun p at least 4-5 cm inside. There is some garcia necrotic tissue around the inner aspect of this, but no cellulitis minimal drainage. LABORATORY DATA: His white count is 10.9, hemoglobin and hematocrit 9 and 28, platelet count 285. H is glucose is 160. His creatinine is 1.2. His CO2 is 21. ASSESSMENT: Chronic decubitus, possible osteomyelitis. PLAN: Bone scan.
--- NOTE | 2018-03-20 23:11 | CON ---
DATE OF CONSULTATION: 03/20/2018 HISTORY OF PRESENT ILLNESS: This is a 62-year-old mentally retarded white male, who has been admitte d for sepsis, possible urinary tract again. He was admitted with sepsis in December and January, he also has a sacral decubitus. He had a renal ultrasound done during the admission in January showed normal upper tracts, no hydronephrosis. There was some thickening of the bladder wall. Urology con cuba was obtained late January. On 02/13/2018, he underwent cystoscopy, bilateral retrogrades by keny beal here in the hospital, there are no abnormal findings. He had a distant history of urethral str icture, but there was no recurrent stricture disease, does not have a significantly large prostate. He had no evidence of any abnormality in the wall of the urinary bladder to the ureters. He was disc harged with a Roberts catheter and back to the nursing center and was to have the Roberts catheter remove d; however, he developed pneumonia 3-4 days after that admission, he was admitted back here for right lower lobe pneumonia. At that time, I do not think his urine culture grew out anything. He was jenny ated for that and sent [facility] to the [facility], I believe on the or 19 of February and he has be en there since and unfortunately the Roberts catheter has been in that time. Apparently, he developed fever, chills, low blood pressure, was brought back here, I guess last night maybe or early this morn ing. He, I think, was on the floor, but then dropped his blood pressure and became tachycardic, so guerline gama was moved to the intermediate unit here. He has had cultures done of the urine. I am assuming he has had blood cultures, but there are none recorded but I think that he probably has. He had a white count of 12.5 when he came in at 2 in the morning is 10.9, now he is anemic, but not really any diff erent than he has been. He had somewhat of a shift with 77 polys and 10 bands. His creatinine was 1 .21. His urinalysis showed many white cells, rare bacteria, large leukocyte esterase. Again, he has a Roberts catheter in, so it would not be at all surprising for him to have the pyuria just from the F oley being in. Looking at his current medications, he is on finasteride, he is on tamsulosin, he is on vancomycin and Zosyn currently. I have been asked to see him again because of potential recurrent UTI sepsis. I went and called the [facility] and confirmed that they have not changed his Roberts out, nor was given a voiding trial there. I have talked with his nurse here and I have written an order for the Roberts to remove and a new one to be placed, place 20 mL in the balloon to keep it f rom getting pulled out. He has got cultures of urine done. Hopefully, cultures of his blood have be en done. I will check with the nursing staff here and if not we can get some blood cultures. We aimee l see what these cultures show in regards to what antibiotics to use and to be sure that it is a urin bebe tract source as he also has a sacral decubitus. On his exam today, his abdomen was obese, penis is not circumcised, somewhat buried but most of this is actually from his weight, there is no evidenc e of a significant urethral erosion, there is no periurethral mass or fluctuance, the testicles are b oth descended, there is nothing to suggest testicular tenderness or epididymitis. Rectal exam was do ne with the nurse's help. There is nothing to suggest prostatic abscess or prostatitis or rectal les ion. So, at this point in time, the plan will be to remove his Roberts and place a new one to ge t blood cultures that they have not been done, we will check the urine culture and blood cultures as they return and adjust the antibiotics as appropriate. I looked through some of the records when he came in with his pneumonia, actually he had a CAT scan of the abdomen done at that time which showed no evidence of renal abscess, no evidence of hydronephrosis, no evidence of renal stones. He had liz e again thickening of the bladder wall, which he just had a cystoscopic exam 4 days ahead of that and there was no abnormality noted to the mucosa suggest a chronic condition and certainly not anything of significance. I think in the long run, it would be best to get his catheter out of him, perhaps i n the next 3-4 days. While he is here, we could get the catheter out and do a voiding trial. I do n ot know that a suprapubic tube would be easy to place on him. If he had to have a catheter in for ur inary drainage, a suprapubic tube would be easier on him than an indwelling Roberts, it is not going to significantly decrease the risk of urinary tract infections, but may limit prostatitis or epididymit is, neither of which he appears to have currently. It would probably have to be placed with BEBA sims. I certainly would not do that until we get his cultures back and figure out what he is actually septic from that is something that could be addressed later on during this admission or at another [facility]. I think for the time being, continue the antibiotics, change out the Roberts, check the cultures as they return and consider getting a voiding trial sometime in the next 3-4 days after he has improv ed.
[2018-03-21] MEDS: Vancomycin HCl 1 GM in Premix Bag 1 BAG IVPB SCH ×2 (02:23→16:28)
[2018-03-21] MEDS ORDERED: cefTRIAXone\\ROCEPHIN 1 GM in Sodium Chloride 0.9% 100 ML IVPB SCH (03:00)
[2018-03-21 04:31] LABS: Anion Gap 11 mmol/L (10-20); BUN (Urea Nitrogen) 22 mg/dL (8.4-25.7); Calc. Creatinine Clearance 97 mL/min (70-130); Calcium 8.3 mg/dL (7.8-10.44); Carbon Dioxide 21 mmol/L (23-31); Chloride 111 mmol/L (98-107); Estimated GFR-MDRD Greater than 90; Glucose 180 mg/dL (80-115); Potassium 3.8 mmol/L (3.5-5.1); Sodium 139 mmol/L (136-145)
[2018-03-21] MEDS: Piperacillin/Tazobactam 3.375 GM in Sodium Chloride 0.9% 100 ML IVPB SCH ×4 (04:32→23:15)
[2018-03-21] MEDS: Acetaminophen 325 MG TAB PO PRN ×2 (05:55→19:56)
[2018-03-21] MEDS: Levothyroxine Sodium 100 MCG TAB PO SCH (05:56)
[2018-03-21] MEDS: Sodium Chloride 0.9% 1,000 ML IV SCH (06:16)
[2018-03-21] MEDS: Folic Acid 1 MG TAB PO SCH (09:53)
[2018-03-21] MEDS: Gabapentin 300 MG CAP PO SCH ×3 (09:53→19:55)
[2018-03-21] MEDS: Famotidine 20 MG TAB PO SCH (09:53)
[2018-03-21] MEDS: Finasteride 5 MG TAB PO SCH (09:54)
[2018-03-21] MEDS: Alogliptin 6.25 MG TAB PO SCH (09:54)
[2018-03-21] MEDS: Insulin Glargine 50 UNITS in Pre-Filled Syringe 1 EACH SC SCH ×2 (09:54→19:58)
[2018-03-21] MEDS: Fish Oil 1,000 MG CAP PO SCH ×2 (09:54→19:55)
[2018-03-21] MEDS: Enoxaparin Sodium 40 MG/0.4 ML SYRINGE SC SCH (09:54)
--- NOTE | 2018-03-21 10:30 | PRG ---
DATE OF SERVICE: 03/21/2018 SUBJECTIVE: The patient is stable, really nonverbal. PHYSICAL EXAMINATION: VITAL SIGNS: Temperature is 97.9, pulse 92, blood pressure 107/71. GENERAL: He is somewhat lethargic, will open his eyes not really localize. His blood sugar today is 143. PLAN: Awaiting on a bone scan to see if this chronic decubitus is related to osteomyelitis prior to any type of debridement.
--- NOTE | 2018-03-21 11:49 | PDOC.FM ---
- Subjective Subjective: Patient doing well this morning with no complaints. No adverse events overnight. - Objective MAR Reviewed: Yes Vital Signs & Weight: Vital Signs (12 hours) Temp Pulse Resp BP Pulse Ox 03/21/18 11:01 97.9 F 84 18 103/66 100 03/21/18 08:00 99 03/21/18 07:27 97.9 F 92 18 107/71 99 03/21/18 04:00 98.4 F 92 17 107/73 100 03/21/18 00:00 98.5 F 97 16 103/63 99 Weight Admit Weight 75.41 kg Weight 77.111 kg I&O: 03/20/18 03/21/18 03/22/18 06:59 06:59 05:59 Intake Total 2500 Output Total 760 Balance 1740 Result Diagrams: 03/20/18 12:52 03/21/18 03:29 <Cat Valdovinos - Last Filed: 03/21/18 14:03> - Objective Vital Signs & Weight: Vital Signs (12 hours) Temp Pulse Resp BP BP Pulse Ox 03/21/18 19:35 98.5 F 88 20 112/67 96 03/21/18 18:20 98.7 F 97 16 114/68 98 03/21/18 15:28 98.2 F 96 18 103/61 98 03/21/18 11:01 97.9 F 84 18 103/66 100 Weight Admit Weight 75.41 kg Weight 77.111 kg I&O: 03/20/18 03/21/18 03/22/18 06:59 06:59 05:59 Intake Total 2500 1250 Output Total 760 1200 Balance 1740 50 Result Diagrams: 03/20/18 12:52 03/21/18 03:29 <Madison Hunter - Last Filed: 03/21/18 21:52> Phys Exam - Physical Examination Constitutional: NAD Respiratory: clear to auscultation bilateral Gastrointestinal: soft, non-tender Musculoskeletal: no edema Neurological: non-focal, normal sensation Psychiatric: normal affect <Cat Valdovinos - Last Filed: 03/21/18 14:03> Dx/Plan (1) Sepsis secondary to UTI Code(s): A41.9 - SEPSIS, UNSPECIFIED ORGANISM; N39.0 - URINARY TRACT INFECTION, SITE NOT SPECIFIED Status: Acute (2) Sacral decubitus ulcer Code(s): L89.159 - PRESSURE ULCER OF SACRAL REGION, UNSPECIFIED STAGE Status: Acute (3) Seizure disorder Code(s): G40.909 - EPILEPSY, UNSP, NOT INTRACTABLE, WITHOUT STATUS EPILEPTICUS Status: Acute (4) Cognitive impairment Code(s): R41.89 - OTH SYMPTOMS AND SIGNS W COGNITIVE FUNCTIONS AND AWARENESS Status: Acute (5) HLD (hyperlipidemia) Code(s): E78.5 - HYPERLIPIDEMIA, UNSPECIFIED Status: Acute - Plan Plan: Sepsis secondary to urinary tract infection vs possible osteo -will continue broad spectrum antibiotics until source of infection is identified. Sacral decubitus ulcer - concern for possible osteomyelitis - bone scan pending. - General surgery and wound care are on board. Seizure disorder - continue home medications Hyperlipidemia - continue home medications. Diabetes mellitus. - continue home medications. - ACHS accuchecks, hypoglycemia protocol Disposition: stable, will transfer to medical floor. <Cat Valdovinos - Last Filed: 03/21/18 14:03> Attending Addendum - Attending Addendum Date/Time: 03/21/182145 I personally evaluated the patient and discussed the management with Dr. Valdovinos I agree with the History, Examination, Assessment and Plan documented above with any addition or exceptions noted below. 62 yo male with history of sepsis related to UTI admitted for sepsis HD#2 Afebrile but does still have intermittent chills. BP stable overnight. Denies pain. VS reviewed, Labs reviewed, cultures reviewed. Bone scan today. 1. Sepsis 2/2 UTI and bacteremia: Borderline shock - resolved. Continue emperic antibiotics. BP WNL for patient. Will transfer back to non-monitored bed. Will discuss with gen surg if surgical bed needed based on bone scan. Continue maintaince fluid. 2. Urinary tract infection: Cultures pending. 3. Bacteremia: Cultures pending. No murmur on exam. Afebrile. Will need repeat in 48 to 72 hours. ECHO as needed. 4. Chronic indewelling mooney: Changed prior to admission. Remove cath for voiding trial when able. Urology following. 5. Sacral ulcer: ESR > 100. Bone scan, gen surg, wound care consulted. Rule out osteo. 6. DEL: Resolved. 7. DM: Prevent severe hyperglycemia. Adjust home meds as needed. Diane <Madison Hunter - Last Filed: 03/21/18 21:52>
[2018-03-21] MEDS: Valproic Acid 250 MG CAP PO SCH ×2 (13:57→19:56)
[2018-03-21 14:35] LABS: Vancomycin, Trough 21.2 ug/mL
--- NOTE | 2018-03-21 15:43 | NM ---
WHOLE BODY BONE SCAN WITH TRIPLE PHASE IMAGING FOR THE PELVIS: 03/21/18 HISTORY: 62-year-old male with left ischial decubitus ulcer and palpable bone. RADIOPHARMACEUTICAL: 31 millicuries technetium 99m-MDP injected intravenously. FINDINGS: Increased flow, blood pooling and increased uptake on delayed images is noted in the region of the le ft ischial tuberosity. Increased uptake in the shoulders, elbows, wrists, feet and ankles are consistent with degenerative c hanges. Tracer excretion through the kidneys is within normal limits. IMPRESSION: Findings are consistent with osteomyelitis involving the left ischial tuberosity. POS: ARSLAN
--- NOTE | 2018-03-21 17:00 | PRG ---
DATE OF SERVICE: 03/21/2018 SUBJECTIVE: Nima Sanchez is essentially unchanged. PHYSICAL EXAMINATION: VITAL SIGNS: He is afebrile, heart rate is 84, respiratory rate 18, oximetry is 100% on 2 liters, bl ood pressure 103/66. There has been no change overall in his exam. IMAGING DATA: Nuclear bone scan was ordered today to evaluate his sacral decubitus ulcer. IMPRESSION: 1. Chronic indwelling Roberts. 2. Chronic bedridden state with a very large sacral decubitus ulcer. May benefit from suprapubic ca theter. His urine is growing 2 organisms. His blood is growing E. coli. I suspect he had an occluded Roberts and then developed pyelonephritis and bacteremia. Creatinine is 0.85 today, he is otherwise stable.
[2018-03-21] MEDS: Tamsulosin HCl 0.4 MG CAP PO SCH (19:55)
[2018-03-21] MEDS: Rosuvastatin 10 MG TAB PO SCH (19:55)
[2018-03-22] MEDS: Vancomycin HCl 1 GM in Premix Bag 1 BAG IVPB SCH ×2 (02:08→15:49)
[2018-03-22] MEDS: Piperacillin/Tazobactam 3.375 GM in Sodium Chloride 0.9% 100 ML IVPB SCH ×3 (04:32→17:10)
[2018-03-22] MEDS: Levothyroxine Sodium 100 MCG TAB PO SCH (04:34)
--- NOTE | 2018-03-22 05:56 | PDOC.FM ---
- Subjective Subjective: Patient doing well this morning. He is resting comfortably in bed in no distress. No adverse overnight. 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 L 03/22/18 00:00 98.7 F 72 20 91/60 94 L 03/21/18 22:01 96 03/21/18 19:35 98.5 F 88 20 112/67 96 Weight Admit Weight 75.41 kg Weight 77.111 kg I&O: 03/20/18 03/21/18 03/22/18 06:59 06:59 05:59 Intake Total 2500 2100 Output Total 760 1600 Balance 1740 500 Result Diagrams: 03/22/18 07:49 03/21/18 03:29 <Cat Valdovinos - Last Filed: 03/22/18 13:45> - Objective Vital Signs & Weight: Vital Signs (12 hours) Temp Pulse Resp BP Pulse Ox 03/22/18 04:00 97.6 F 99 20 111/71 99 03/22/18 01:37 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 L 03/22/18 00:00 98.7 F 72 20 91/60 94 L 03/21/18 22:01 96 Weight Admit Weight 75.41 kg Weight 77.111 kg I&O: 03/21/18 03/22/18 03/23/18 07:59 06:59 06:59 Intake Total Output Total Balance Result Diagrams: 03/22/18 07:49 03/21/18 03:29 <Madison Hunter - Last Filed: 03/22/18 20:48> Phys Exam - Physical Examination Constitutional: NAD Respiratory: clear to auscultation bilateral Cardiovascular: RRR Gastrointestinal: soft, non-tender Musculoskeletal: edema present Psychiatric: normal affect <Cat Valdovinos - Last Filed: 03/22/18 13:45> Dx/Plan (1) Sepsis secondary to UTI Code(s): A41.9 - SEPSIS, UNSPECIFIED ORGANISM; N39.0 - URINARY TRACT INFECTION, SITE NOT SPECIFIED Status: Acute (2) Sacral decubitus ulcer Code(s): L89.159 - PRESSURE ULCER OF SACRAL REGION, UNSPECIFIED STAGE Status: Acute (3) Seizure disorder Code(s): G40.909 - EPILEPSY, UNSP, NOT INTRACTABLE, WITHOUT STATUS EPILEPTICUS Status: Acute (4) Cognitive impairment Code(s): R41.89 - OTH SYMPTOMS AND SIGNS W COGNITIVE FUNCTIONS AND AWARENESS Status: Acute (5) HLD (hyperlipidemia) Code(s): E78.5 - HYPERLIPIDEMIA, UNSPECIFIED Status: Acute (6) Osteomyelitis Code(s): M86.9 - OSTEOMYELITIS, UNSPECIFIED Status: Acute - Plan Plan: Osteomyelitis - bone scan shows osteomyelitis. - will continue broad spectrum - Dr. Esqueda plans for debridement tomorrow, also recommended plastic surgery consult due to possible need for reconstruction/graft urinary tract infection - will consider discontinuing mooney, for voiding trial. - if pt fails, will likely need to reconsider suprapubic catheter Sacral decubitus ulcer - concern for possible osteomyelitis - bone scan pending. - General surgery and wound care are on board. Seizure disorder - continue home medications Hyperlipidemia - continue home medications. Diabetes mellitus. - continue home medications. - ACHS accuchecks, hypoglycemia protocol <Cat Valdovinos - Last Filed: 03/22/18 13:45> Attending Addendum - Attending Addendum Date/Time: 03/22/18 2749 I personally evaluated the patient and discussed the management with Dr. Valdovinos I agree with the History, Examination, Assessment and Plan documented above with any addition or exceptions noted below. 62 yo male with history of sepsis related to UTI admitted for sepsis HD#3 Afebrile. VS improved. VS reviewed, Labs reviewed, cultures reviewed. 1. Sepsis 2/2 UTI, bacteremia and osteomyelitis: Borderline shock - resolved. Continue emperic antibiotics. Continue maintaince fluid. Would d/c this afternoon. 2. Urinary tract infection: Sensitivities reviewed. 3. Bacteremia: Sensitivities reviewed. No murmur on exam. Afebrile. Will need repeat blood cultures on 03/23/18. Due to multiple sources of infection will order ECHO today. 4. Ischial osteo: Debridement in AM with gen surg. Wound care following for ulcer. Bone culture will not likely grow good culture. Will need to discuss with John. Will need outpatient senior living antibx. 5. Chronic indewelling mooney: Changed prior to admission. Remove cath for voiding trial when able. Urology following. 6. Sacral ulcer: Wound care consulted. 7. DEL: Resolved. 8. DM: Prevent severe hyperglycemia. Adjust home meds as needed. 9. Seizure disorder: Use caution with some meds that lower threshold ABrayMD <Madison Hunter - Last Filed: 03/22/18 20:48>
[2018-03-22] MEDS: Famotidine 20 MG TAB PO SCH (07:52)
[2018-03-22] MEDS: Valproic Acid 250 MG CAP PO SCH ×2 (07:52→21:12)
[2018-03-22] MEDS: Alogliptin 6.25 MG TAB PO SCH (07:52)
[2018-03-22] MEDS: Folic Acid 1 MG TAB PO SCH (07:52)
[2018-03-22] MEDS: Fish Oil 1,000 MG CAP PO SCH ×2 (07:52→21:14)
[2018-03-22] MEDS: Gabapentin 300 MG CAP PO SCH ×3 (07:53→21:12)
[2018-03-22] MEDS: Enoxaparin Sodium 40 MG/0.4 ML SYRINGE SC SCH (07:53)
[2018-03-22] MEDS: Finasteride 5 MG TAB PO SCH (07:53)
[2018-03-22 08:30] LABS: #Eosinphils 0.1 thou/uL (0.0-0.7); #Lymphocytes 2.1 thou/uL (1.20-3.40); #Monocytes 0.6 thou/uL (0.11-0.59); #Neutrophils 4.4 thou/uL (1.40-6.50); %Basophils 0.4 % (0.0-1.0); %Eosinophils 1.4 % (0.0-10.0); %Lymphocytes 29.1 % (21.0-51.0); %Monocytes 8.4 % (0.0-10.0); %Neutrophils 60.7 % (42.0-75.0); Hemoglobin 9.2 g/dL (14.0-18.0); Mean Corpuscular HGB CONC 31.1 g/dL (32.0-36.0); Mean Corpuscular Hemoglobin 26.8 pg (27.0-31.0); Mean Corpuscular Volume 86.1 fL (78.0-98.0); Mean Platelet Volume 6.4 fL (7.4-10.4); Platelet Count 267 thou/uL (130-400); RBC Distribution Width 14.7 % (11.5-14.5); Red Blood Cell (RBC) Count 3.42 mill/uL (4.70-6.10); White Blood Cell (WBC) Count 7.3 thou/uL (4.8-10.8)
[2018-03-22] MEDS: Insulin Glargine 50 UNITS in Pre-Filled Syringe 1 EACH SC SCH ×2 (09:13→21:13)
--- NOTE | 2018-03-22 10:59 | PRG ---
DATE OF SERVICE: 03/22/2018 SUBJECTIVE: Patient had a bone scan yesterday, it shows a left ischial osteomyelitis. He is otherwi se doing fine. PHYSICAL EXAMINATION: VITAL SIGNS: Temperature is 97.8, pulse 72, blood pressure 100/67. LABORATORY DATA: White count 7.3, hemoglobin and hematocrit of 9.2 and 29, platelet count 267. Elec trolytes; sodium 139, potassium 3.8, chloride 111, CO2 of 21. ASSESSMENT: Chronic left ischial decubitus with osteomyelitis. PLAN: Surgical debridement tomorrow.
[2018-03-22] MEDS: Rosuvastatin 10 MG TAB PO SCH (21:12)
[2018-03-22] MEDS: Tamsulosin HCl 0.4 MG CAP PO SCH (21:13)
[2018-03-23] MEDS: Piperacillin/Tazobactam 3.375 GM in Sodium Chloride 0.9% 100 ML IVPB SCH ×5 (00:07→23:24)
[2018-03-23] MEDS: Vancomycin HCl 1 GM in Premix Bag 1 BAG IVPB SCH ×2 (03:18→16:36)
[2018-03-23] MEDS: Levothyroxine Sodium 100 MCG TAB PO SCH (05:46)
--- NOTE | 2018-03-23 06:45 | PDOC.FM ---
- Subjective Subjective: Patient is doing well this am. Reports he is thirsty but otherwise as his baseline mental state. He is scheduled to have surgical debridement of wound today. MANNY. - Objective MAR Reviewed: Yes Vital Signs & Weight: Vital Signs (12 hours) Temp Pulse Resp BP Pulse Ox 03/23/18 04:00 98.5 F 80 18 96/61 94 L 03/23/18 00:00 99.1 F 78 18 103/66 99 03/22/18 20:00 98.6 F 91 18 110/69 99 Weight Admit Weight 75.41 kg Weight 78.216 kg I&O: 03/21/18 03/22/18 03/23/18 07:59 06:59 06:59 Intake Total 1780 Output Total 1450 Balance 330 Result Diagrams: 03/22/18 07:49 03/21/18 03:29 Phys Exam - Physical Examination Constitutional: NAD HEENT: moist MMs Respiratory: no wheezing, no rales, clear to auscultation bilateral Cardiovascular: RRR, no significant murmur Gastrointestinal: soft, non-tender mild distension Musculoskeletal: no edema, pulses present Neurological: non-focal Psychiatric: normal affect, A&O x 3 Dx/Plan (1) Osteomyelitis Code(s): M86.9 - OSTEOMYELITIS, UNSPECIFIED Status: Acute (2) Sacral decubitus ulcer Code(s): L89.159 - PRESSURE ULCER OF SACRAL REGION, UNSPECIFIED STAGE Status: Acute (3) Sepsis secondary to UTI Code(s): A41.9 - SEPSIS, UNSPECIFIED ORGANISM; N39.0 - URINARY TRACT INFECTION, SITE NOT SPECIFIED Status: Acute (4) Seizure disorder Code(s): G40.909 - EPILEPSY, UNSP, NOT INTRACTABLE, WITHOUT STATUS EPILEPTICUS Status: Acute (5) Cognitive impairment Code(s): R41.89 - OTH SYMPTOMS AND SIGNS W COGNITIVE FUNCTIONS AND AWARENESS Status: Acute (6) DM2 (diabetes mellitus, type 2) Status: Acute (7) HLD (hyperlipidemia) Code(s): E78.5 - HYPERLIPIDEMIA, UNSPECIFIED Status: Acute (8) Hypothyroid Code(s): E03.9 - HYPOTHYROIDISM, UNSPECIFIED Status: Acute - Plan Plan: Sepsis 2/2 Osteomyelitis from chronic sacral decubitus vs UTI - will continue broad spectrum abx, vanc and zosyn for now. Will consider deescalation as cultures come back. Likely d/c Vanc. - Dr. Esqueda plans for debridement today, also recommended plastic surgery consult due to possible need for reconstruction/graft - wound cx to be collected in OR today urinary tract infection, recurrent - [facility], now has new mooney - will consider discontinuing mooney today for voiding trial after surgery - if pt fails, will likely need to reconsider suprapubic catheter - continue finasteride and tamulosin - urology, Dr. March on board, appreciate recs. - urine cx: E.coli and Proteus, sensitive to zosyn Seizure disorder - continue home Depakote Hyperlipidemia - continue home Rosuvastatin Diabetes mellitus. - continue home Lantus, 50units BID and Alogliptin 6.25mg daily - ACHS accuchecks, hypoglycemia protocol Hypothyroidism - continue home synthroid VTE PPx: heparin Code status: IVF: none, SL Dispo: will likely be here at least 2 more days. Will need set up for outpatient abx with picc line.
--- NOTE | 2018-03-23 11:51 | EKG ---
Test Reason : Blood Pressure : / mmHG Vent. Rate : 101 BPM Atrial Rate : 101 BPM P-R Int : 150 ms QRS Dur : 072 ms QT Int : 358 ms P-R-T Axes : 049 032 024 degrees QTc Int : 464 ms Sinus tachycardia Low voltage QRS Borderline ECG Confirmed by CHARLOTTE FUCHS ([id number]) on 03/23/2018 11:50:55 AM Referred By: CASIMIRO Confirmed By:CHARLOTTE FUCHS
[2018-03-23] MEDS ORDERED: Dextrose 5 %-0.45 % NaCl 1,000 ML IV SCH (12:00)
[2018-03-23] MEDS ORDERED: Sodium Chloride 0.9% 100 ML ONE (12:36)
[2018-03-23] MEDS: Enoxaparin Sodium 40 MG/0.4 ML SYRINGE SC SCH (12:42)
[2018-03-23] MEDS: Fish Oil 1,000 MG CAP PO SCH ×2 (12:43→21:45)
[2018-03-23] MEDS: Valproic Acid 250 MG CAP PO SCH ×2 (12:43→21:46)
[2018-03-23] MEDS: Insulin Glargine 50 UNITS in Pre-Filled Syringe 1 EACH SC SCH (12:43)
[2018-03-23] MEDS: Gabapentin 300 MG CAP PO SCH ×3 (12:43→21:46)
[2018-03-23 13:21] VITALS: BMI 24.7
[2018-03-23] MEDS ORDERED: Midazolam HCl 2 mg/2 ml Vial ONE (13:59)
[2018-03-23] MEDS ORDERED: Fentanyl 100 MCG/2 ML VIAL ONE (13:59)
[2018-03-23] MEDS ORDERED: Lidocaine 2% Jelly 5 ML TUBE ONE (13:59)
[2018-03-23] MEDS ORDERED: PROPOFOL 200 MG/20 ML VIAL ONE (15:12)
[2018-03-23] MEDS ORDERED: Lidocaine 1% PF 5 ML VIAL ONE (15:12)
[2018-03-23] MEDS ORDERED: ePHEDrine/0.9% NaCl/PF SYRINGE 50 mg/10 ml ONE (15:12)
[2018-03-23] MEDS ORDERED: Glycopyrrolate 0.2 MG/ML 5 ML SYRINGE ONE (15:12)
[2018-03-23] MEDS ORDERED: PHENYLEPHRINE-NS 100 MCG/ML 10 ML SYRINGE ONE (15:12)
[2018-03-23] MEDS ORDERED: Dextrose 5% in Water 1,000 ML IV PRN (15:15)
[2018-03-23] MEDS ORDERED: Dextrose 50% Abboject 50 ML SYRINGE SLOW IVP PRN (15:15)
[2018-03-23] MEDS ORDERED: Promethazine HCl 25 MG/ML VIAL IM PRN (15:15)
[2018-03-23] MEDS ORDERED: HYDROcodone/Acetaminophen 10/325 mg Tablet PO PRN ×2 (15:15)
[2018-03-23] MEDS ORDERED: hydrALAZINE 20 MG/ML VIAL SLOW IVP PRN (15:15)
[2018-03-23] MEDS ORDERED: Ondansetron PF 4 MG/2 ML Vial IVP PRN (15:15)
[2018-03-23] MEDS ORDERED: Ondansetron HCl/PF 4 MG/2 ML Vial IVP PRN (16:20)
[2018-03-23] MEDS: Finasteride 5 MG TAB PO SCH (16:35)
[2018-03-23] MEDS: Alogliptin 6.25 MG TAB PO SCH (16:35)
[2018-03-23] MEDS: Famotidine 20 MG TAB PO SCH ×2 (16:35→21:45)
[2018-03-23] MEDS: Folic Acid 1 MG TAB PO SCH (16:36)
[2018-03-23] MEDS: Sodium Chloride 0.9% 1,000 ML IV SCH (16:40)
--- NOTE | 2018-03-23 16:52 | OP ---
DATE OF PROCEDURE: 03/23/2018 PREOPERATIVE DIAGNOSIS: Chronic stage IV left ischial decubitus with osteomyelitis. INDICATIONS: This is a 62-year-old male who is bedbound and mental retardation who has chronic decub itus on the left ischium. A bone scan shows positive for osteomyelitis. FINDINGS: A necrotic cavity that extended down to the ischium. Specimen sent. Size of debridement was 6 x 3 cm in width x 3 cm in depth to include skin, subcutaneous tissue, muscle, tendon, and bone. PROCEDURE IN DETAIL: After informed consent was obtained, the patient was taken to the operating [facility] m and given general endotracheal anesthesia. He was placed in the right lateral decubitus position. His gluteal area was prepped and draped in usual fashion. An elliptical incision was performed to e xcise the necrotic cavity. The cavity was excised down to the bone. Then the necrotic bone was exci sed utilizing the rongeur bone grasper down to bleeding tissue. Hemostasis achieved with electrocaut kylee. The wound thoroughly irrigated with saline, packed open with Betadine gauze covered by sterile clean gauze, ABD pad. Hemostasis assured and sponge and needle counts correct.
[2018-03-23 18:01] LABS: Vancomycin, Trough 34.1 ug/mL
[2018-03-23] MEDS ORDERED: Insulin Glargine 12 UNITS in Pre-Filled Syringe 1 EACH SC SCH (21:00)
[2018-03-23] MEDS: Rosuvastatin 10 MG TAB PO SCH (21:46)
[2018-03-23] MEDS: Tamsulosin HCl 0.4 MG CAP PO SCH (21:46)
[2018-03-23] MEDS: Famotidine/PF 20 mg/2ml Vial SLOW IVP SCH (21:56)
[2018-03-24] MEDS: Sodium Chloride 0.9% 1,000 ML IV SCH ×2 (01:39→10:36)
[2018-03-24] MEDS: Vancomycin HCl 1 GM in Premix Bag 1 BAG IVPB SCH (03:45)
[2018-03-24] MEDS: Piperacillin/Tazobactam 3.375 GM in Sodium Chloride 0.9% 100 ML IVPB SCH ×2 (04:35→10:35)
[2018-03-24 04:59] LABS: #Eosinphils 0.1 thou/uL (0.0-0.7); #Monocytes 0.6 thou/uL (0.11-0.59); #Neutrophils 5.5 thou/uL (1.40-6.50); %Basophils 0.2 % (0.0-1.0); %Eosinophils 1.5 % (0.0-10.0); %Lymphocytes 24.1 % (21.0-51.0); %Monocytes 7.1 % (0.0-10.0); %Neutrophils 67.2 % (42.0-75.0); Hemoglobin 9.2 g/dL (14.0-18.0); Mean Corpuscular HGB CONC 31.9 g/dL (32.0-36.0); Mean Corpuscular Hemoglobin 26.8 pg (27.0-31.0); Mean Corpuscular Volume 84.3 fL (78.0-98.0); Mean Platelet Volume 6.3 fL (7.4-10.4); Platelet Count 300 thou/uL (130-400); RBC Distribution Width 14.8 % (11.5-14.5); Red Blood Cell (RBC) Count 3.44 mill/uL (4.70-6.10); White Blood Cell (WBC) Count 8.2 thou/uL (4.8-10.8)
[2018-03-24 05:01] LABS: INR-International Normal Ratio 1.2
[2018-03-24] MEDS: Levothyroxine Sodium 100 MCG TAB PO SCH (05:07)
--- NOTE | 2018-03-24 05:09 | PDOC.FM ---
- Subjective Subjective: Patient is doing well this am. He is hungry but otherwise has no complaints. He is postop day 1 from debridement of sacral decubitus wound. No acute events overnight. - Objective MAR Reviewed: Yes Vital Signs & Weight: Vital Signs (12 hours) Temp Pulse Resp BP Pulse Ox 03/24/18 05:00 98.2 F 85 18 123/82 98 03/24/18 01:00 98.1 F 70 18 126/67 03/23/18 22:16 98 03/23/18 21:00 98.2 F 74 18 112/70 98 Weight Admit Weight 75.41 kg Weight 78.216 kg I&O: 03/22/18 03/23/18 03/24/18 06:59 06:59 06:59 Intake Total 1780 Output Total 1450 Balance 330 Result Diagrams: 03/24/18 04:34 03/24/18 04:34 Phys Exam - Physical Examination Constitutional: NAD HEENT: moist MMs Respiratory: no wheezing, no rales, clear to auscultation bilateral Cardiovascular: RRR Gastrointestinal: soft, non-tender, no distention Musculoskeletal: no edema Neurological: moves all 4 limbs Deviation from normal: AOx2 Dx/Plan (1) Osteomyelitis Code(s): M86.9 - OSTEOMYELITIS, UNSPECIFIED Status: Acute (2) Sacral decubitus ulcer Code(s): L89.159 - PRESSURE ULCER OF SACRAL REGION, UNSPECIFIED STAGE Status: Acute (3) Sepsis secondary to UTI Code(s): A41.9 - SEPSIS, UNSPECIFIED ORGANISM; N39.0 - URINARY TRACT INFECTION, SITE NOT SPECIFIED Status: Acute (4) Seizure disorder Code(s): G40.909 - EPILEPSY, UNSP, NOT INTRACTABLE, WITHOUT STATUS EPILEPTICUS Status: Acute (5) Cognitive impairment Code(s): R41.89 - OTH SYMPTOMS AND SIGNS W COGNITIVE FUNCTIONS AND AWARENESS Status: Acute (6) DM2 (diabetes mellitus, type 2) Status: Acute (7) HLD (hyperlipidemia) Code(s): E78.5 - HYPERLIPIDEMIA, UNSPECIFIED Status: Acute (8) Hypothyroid Code(s): E03.9 - HYPOTHYROIDISM, UNSPECIFIED Status: Acute - Plan Plan: Sepsis 2/2 Osteomyelitis from chronic sacral decubitus vs UTI - will transition to IV Rocephin today. Scheduled for PICC line placement today - Postop Day1- doing well, not requiring any pain medication at this time. - wound cx to be collected in OR today Urinary tract infection, recurrent - [facility], now has new mooney - will consider discontinuing mooney today for voiding trial after wound vac in place. - if pt fails, will likely need to reconsider suprapubic catheter - continue finasteride and tamulosin - urology, Dr. March on board, appreciate recs. - urine cx: E.coli and Proteus, sensitive to rocephin Seizure disorder - continue home Depakote Hyperlipidemia - continue home Rosuvastatin Diabetes mellitus. - continue home Lantus, 50units BID and Alogliptin 6.25mg daily - ACHS accuchecks, hypoglycemia protocol Hypothyroidism - continue home synthroid VTE PPx: lovenox Code status: IVF: none, SL Dispo: will likely be here at least 2 more days. Will need set up for outpatient abx with picc line.
[2018-03-24 05:11] LABS: Anion Gap 8 mmol/L (10-20); BUN (Urea Nitrogen) 7 mg/dL (8.4-25.7); Calc. Creatinine Clearance 136 mL/min (70-130); Calcium 8.5 mg/dL (7.8-10.44); Carbon Dioxide 28 mmol/L (23-31); Chloride 105 mmol/L (98-107); Estimated GFR-MDRD Greater than 90; Glucose 96 mg/dL (80-115); Potassium 3.3 mmol/L (3.5-5.1); Sodium 138 mmol/L (136-145)
--- NOTE | 2018-03-24 08:39 | PRG ---
DATE OF SERVICE: 03/24/2018 SUBJECTIVE: The patient is more alert today. He says his pain is well controlled. PHYSICAL EXAMINATION: VITAL SIGNS: Temperature 97, pulse 81, blood pressure 104/66. GENERAL: He is awake. His dressing is intact. LABORATORY DATA: His white count 8.2, H&H 9.2 and 29, platelet count 300. Electrolytes just a littl e bit of low potassium at 3.3. ASSESSMENT: Status post debridement of stage IV decubitus of the left ischium with osteomyelitis. PLAN: Wound Care is supposed to put a VAC on him today. Hopefully he can be transferred back to [facility] soon.
[2018-03-24] MEDS ORDERED: Potassium Chloride 20 MEQ TAB PO SCH (09:00)
--- NOTE | 2018-03-24 10:10 | PDOC.EVN ---
Event Note - Event Note Event Note: CONTINUITY PCP VISIT 03/24/2018: PCP PARMINDER JACKMAN MD Subjective: 62yo cognitively impaired male seen at bedside this AM. Patient is to have PICC line placed this AM for outpatient antibiotic therapy due to E. coli bacteremia. Patient is A&Ox1 at baseline and appears to be at that today. Patient can't verbalize any other history. Patient does not complain of pain. No other history able to be obtained. Objective: Vitals: 104/66, 97.7, 18, 85, 95% room air General: Male appears stated age, lying in bed, no acute distress HEAD: Atraumatic, normocephalic CV: RRR, no murmurs Respiratory: Clear to auscultation bilaterally, no wheezing Abdomen: Soft, non-tender, no distention, bowel sounds present Extremities: Lower extremity atrophy. Skin: Sacral decubitus ulcer site bandaged. Psych: A&Ox1 appears to be baseline. Assessment/Plan: 1. Sepsis 2/2 Osteomyelitis from chronic sacral decubitus vs UTI - Sepsis resolved - WBC and vitals WNL - Patient set up for PICC placement for outpatient antibiotics - E coli, Proteus cultures positive - S/P debridement 03/23 - General surgery states ready for discharge to [place]. 2. urinary tract infection, recurrent - mooney did not get changed at [facility] after prior hospitalization, now has new moonye - will consider discontinuing mooney today for voiding trial after surgery - if pt fails, will likely need to reconsider suprapubic catheter by Urology - continue finasteride and tamulosin - urology, Dr. March on board, appreciate recs. - urine cx: E.coli and Proteus, sensitive to zosyn 3. Seizure disorder - continue home Depakote 4. Hyperlipidemia - continue home Rosuvastatin 5. Diabetes mellitus. - continue home Lantus, 50units BID and Alogliptin 6.25mg daily - ACHS accuchecks, hypoglycemia protocol 6. Hypothyroidism - continue home synthroid Disposition: Stable, patient likely ready for discharge back to [place] in near future per primary team management.
[2018-03-24] MEDS: Insulin Glargine 50 UNITS in Pre-Filled Syringe 1 EACH SC SCH ×2 (10:23→21:22)
[2018-03-24] MEDS: Enoxaparin Sodium 40 MG/0.4 ML SYRINGE SC SCH (10:28)
[2018-03-24] MEDS: Famotidine/PF 20 mg/2ml Vial SLOW IVP SCH ×2 (10:28→21:22)
[2018-03-24] MEDS: Valproic Acid 250 MG CAP PO SCH ×2 (10:29→21:21)
[2018-03-24] MEDS: Famotidine 20 MG TAB PO SCH ×2 (10:29→21:22)
[2018-03-24] MEDS: Fish Oil 1,000 MG CAP PO SCH ×2 (10:29→21:21)
[2018-03-24] MEDS: Finasteride 5 MG TAB PO SCH (10:29)
[2018-03-24] MEDS: Gabapentin 300 MG CAP PO SCH ×3 (10:29→21:21)
[2018-03-24] MEDS: Alogliptin 6.25 MG TAB PO SCH (10:29)
[2018-03-24] MEDS: Folic Acid 1 MG TAB PO SCH (10:29)
--- NOTE | 2018-03-24 11:45 | SPC ---
ULTRASOUND AND FLUOROSCOPIC GUIDED PICC LINE: Date: 03/24/18 HISTORY: Need for long-term IV antibiotics. COMPARISON: None. FINDINGS: The patient was brought to the specials suite. All questions were answered. Informed consent obtained , Timeout performed. Patient's left arm was prepped and draped in normal sterile fashion. The left basilic vein was access using ultrasound guidance. Over a wire and peel-away sheath, a PICC was placed with tip at the infer ior SVC using fluoroscopic guidance. IMPRESSION: Technically successful ultrasound and fluoroscopic guided PICC line placement. Fluoro Time: 0.3 minutes. Dose: 2607 mGy*cm^2. POS: [facility]
--- NOTE | 2018-03-24 11:57 | PRG ---
DATE OF SERVICE: 03/24/2018 SUBJECTIVE: Mr. Sanchez is being treated for osteomyelitis and Escherichia coli septicemia and urinar y tract infection. He is currently down for a PICC line given that he will need long-term IV therapy for his osteomyelitis. His vital signs are stable. He is afebrile. Likely, discharge after PICC line placement.
[2018-03-24] MEDS: cefTRIAXone\\ROCEPHIN 2 GM in Sodium Chloride 0.9% 100 ML IVPB SCH (14:54)
[2018-03-24] MEDS: Rosuvastatin 10 MG TAB PO SCH (21:21)
[2018-03-24] MEDS: Tamsulosin HCl 0.4 MG CAP PO SCH (21:21)
[2018-03-25] MEDS: Sodium Chloride 0.9% 1,000 ML IV SCH ×3 (00:11→13:52)
[2018-03-25] MEDS: Levothyroxine Sodium 100 MCG TAB PO SCH (04:48)
--- NOTE | 2018-03-25 08:08 | PDOC.FM ---
- Subjective Subjective: Patient is doing well this morning, in his usual mental state. He denies pain. He failed voiding trial yesterday and has a mooney back in place. He also had a hypoglycemic episode overnight. He is not able to recall if he had dinner or not. - Objective MAR Reviewed: Yes Vital Signs & Weight: Weight Admit Weight 75.41 kg Weight 78.216 kg I&O: 03/24/18 03/25/18 03/26/18 06:59 06:59 06:59 Intake Total 1100 1720 Output Total 950 1350 Balance 150 370 Result Diagrams: 03/24/18 04:34 03/25/18 08:15 <Lily Nicholson - Last Filed: 03/25/18 09:24> - Objective Vital Signs & Weight: Vital Signs (12 hours) Temp Pulse Resp BP Pulse Ox 03/26/18 07:46 97.8 F 79 20 146/83 H 96 Weight Admit Weight 75.41 kg Weight 78.216 kg I&O: 03/25/18 03/26/18 03/27/18 06:59 06:59 06:59 Intake Total 1720 1355 Output Total 1350 1150 Balance 370 205 Result Diagrams: 03/26/18 05:39 03/26/18 05:39 <Tolu Franklin - Last Filed: 03/26/18 08:43> Phys Exam - Physical Examination Constitutional: NAD HEENT: moist MMs Respiratory: no wheezing Cardiovascular: RRR, no significant murmur Gastrointestinal: soft, non-tender Musculoskeletal: no edema Neurological: non-focal Psychiatric: normal affect <Lily Nicholson - Last Filed: 03/25/18 09:24> Dx/Plan (1) Osteomyelitis Code(s): M86.9 - OSTEOMYELITIS, UNSPECIFIED Status: Acute (2) Sacral decubitus ulcer Code(s): L89.159 - PRESSURE ULCER OF SACRAL REGION, UNSPECIFIED STAGE Status: Acute (3) Sepsis secondary to UTI Code(s): A41.9 - SEPSIS, UNSPECIFIED ORGANISM; N39.0 - URINARY TRACT INFECTION, SITE NOT SPECIFIED Status: Acute (4) Seizure disorder Code(s): G40.909 - EPILEPSY, UNSP, NOT INTRACTABLE, WITHOUT STATUS EPILEPTICUS Status: Acute (5) Cognitive impairment Code(s): R41.89 - OTH SYMPTOMS AND SIGNS W COGNITIVE FUNCTIONS AND AWARENESS Status: Acute (6) DM2 (diabetes mellitus, type 2) Status: Acute (7) HLD (hyperlipidemia) Code(s): E78.5 - HYPERLIPIDEMIA, UNSPECIFIED Status: Acute (8) Hypothyroid Code(s): E03.9 - HYPOTHYROIDISM, UNSPECIFIED Status: Acute - Plan Plan: Sepsis 2/2 Osteomyelitis from chronic sacral decubitus vs UTI - Continue IV Rocephin. PICC line in place - Postop Day1 from debridement- doing well, not requiring any pain medication at this time. - bone cx pending Urinary tract infection, recurrent - mooney did not get changed at [facility] after prior hospitalization, now has new mooney - failed voiding trial yesterday. Will discuss with urology. - if pt fails, will likely need to reconsider suprapubic catheter - continue finasteride and tamulosin - urology, Dr. March on board, appreciate recs. - urine cx: E.coli and Proteus, sensitive to rocephin Seizure disorder - continue home Depakote Hyperlipidemia - continue home Rosuvastatin Diabetes mellitus. - Having some low sugars likely 2/2 poor PO intake. Decrease Lantus to 45u BID. Continue Alogliptin 6.25mg daily for now. Encourage PO intake today. - ACHS accuchecks, hypoglycemia protocol Hypothyroidism - continue home synthroid VTE PPx: lovenox Code status: Full IVF: none, SL Dispo: d/c pending urology recs and bone cx to confirm appropriate abx. <Lily Nicholson - Last Filed: 03/25/18 09:24> Attending Addendum - Attending Addendum Date/Time: 03/26/18 0843 I personally evaluated the patient and discussed the management with Dr. Nicholson yesterday. I agree with the History, Examination, Assessment and Plan documented above with any addition or exceptions noted below. <Tolu Franklin - Last Filed: 03/26/18 08:43>
[2018-03-25 08:55] LABS: Anion Gap 11 mmol/L (10-20); BUN (Urea Nitrogen) 5 mg/dL (8.4-25.7); Calc. Creatinine Clearance 134 mL/min (70-130); Calcium 8.3 mg/dL (7.8-10.44); Carbon Dioxide 26 mmol/L (23-31); Chloride 106 mmol/L (98-107); Estimated GFR-MDRD Greater than 90; Glucose 123 mg/dL (80-115); Potassium 3.6 mmol/L (3.5-5.1); Sodium 139 mmol/L (136-145)
[2018-03-25] MEDS ORDERED: Insulin Glargine 45 UNITS in Pre-Filled Syringe 1 EACH SC SCH ×2 (09:00→21:00)
[2018-03-25] MEDS: Enoxaparin Sodium 40 MG/0.4 ML SYRINGE SC SCH (09:06)
[2018-03-25] MEDS: Alogliptin 6.25 MG TAB PO SCH (09:06)
[2018-03-25] MEDS: Famotidine/PF 20 mg/2ml Vial SLOW IVP SCH ×2 (09:07→20:36)
[2018-03-25] MEDS: Famotidine 20 MG TAB PO SCH ×2 (09:07→20:36)
[2018-03-25] MEDS: Fish Oil 1,000 MG CAP PO SCH ×2 (09:07→20:36)
[2018-03-25] MEDS: Gabapentin 300 MG CAP PO SCH ×3 (09:07→20:36)
[2018-03-25] MEDS: Folic Acid 1 MG TAB PO SCH (09:07)
[2018-03-25] MEDS: Valproic Acid 250 MG CAP PO SCH ×2 (09:08→20:36)
[2018-03-25] MEDS: Finasteride 5 MG TAB PO SCH (09:15)
[2018-03-25] MEDS: cefTRIAXone\\ROCEPHIN 2 GM in Sodium Chloride 0.9% 100 ML IVPB SCH (13:45)
[2018-03-25] MEDS ORDERED: Heparin 1,000 UNITS/ML VIAL ONE (17:53)
[2018-03-25] MEDS: Rosuvastatin 10 MG TAB PO SCH (20:36)
[2018-03-25] MEDS: Tamsulosin HCl 0.4 MG CAP PO SCH (20:36)
[2018-03-26] MEDS: Sodium Chloride 0.9% 1,000 ML IV SCH ×3 (03:36→21:12)
[2018-03-26 06:30] LABS: Anion Gap 9 mmol/L (10-20); BUN (Urea Nitrogen) 5 mg/dL (8.4-25.7); Calc. Creatinine Clearance 148 mL/min (70-130); Calcium 8.6 mg/dL (7.8-10.44); Carbon Dioxide 28 mmol/L (23-31); Chloride 106 mmol/L (98-107); Estimated GFR-MDRD Greater than 90; Glucose 71 mg/dL (80-115); Potassium 3.6 mmol/L (3.5-5.1); Sodium 139 mmol/L (136-145)
--- NOTE | 2018-03-26 06:36 | PDOC.FM ---
- Subjective Subjective: Patient is his usual self this morning. He did not eat breakfast well. He reports some leg swelling but otherwise has no complaints. NAEO. - Objective MAR Reviewed: Yes Vital Signs & Weight: Vital Signs (12 hours) Temp Pulse Resp BP Pulse Ox 03/25/18 20:20 95 03/25/18 20:00 98.4 F 80 16 120/77 95 Weight Admit Weight 75.41 kg Weight 78.216 kg I&O: 03/24/18 03/25/18 03/26/18 06:59 06:59 06:59 Intake Total 1100 1720 1355 Output Total 950 1350 1150 Balance 150 370 205 Result Diagrams: 03/26/18 05:39 03/26/18 05:39 Phys Exam - Physical Examination Constitutional: NAD HEENT: moist MMs Respiratory: no wheezing, no rales, clear to auscultation bilateral Cardiovascular: RRR, no significant murmur Gastrointestinal: soft, non-tender 1+ edema b/l feet Neurological: moves all 4 limbs Psychiatric: normal affect Dx/Plan (1) Osteomyelitis Code(s): M86.9 - OSTEOMYELITIS, UNSPECIFIED Status: Acute (2) Sacral decubitus ulcer Code(s): L89.159 - PRESSURE ULCER OF SACRAL REGION, UNSPECIFIED STAGE Status: Acute (3) Sepsis secondary to UTI Code(s): A41.9 - SEPSIS, UNSPECIFIED ORGANISM; N39.0 - URINARY TRACT INFECTION, SITE NOT SPECIFIED Status: Acute (4) Seizure disorder Code(s): G40.909 - EPILEPSY, UNSP, NOT INTRACTABLE, WITHOUT STATUS EPILEPTICUS Status: Acute (5) Cognitive impairment Code(s): R41.89 - OTH SYMPTOMS AND SIGNS W COGNITIVE FUNCTIONS AND AWARENESS Status: Acute (6) DM2 (diabetes mellitus, type 2) Status: Acute (7) HLD (hyperlipidemia) Code(s): E78.5 - HYPERLIPIDEMIA, UNSPECIFIED Status: Acute (8) Hypothyroid Code(s): E03.9 - HYPOTHYROIDISM, UNSPECIFIED Status: Acute - Plan Plan: Sepsis 2/2 Osteomyelitis from chronic sacral decubitus vs UTI - Continue IV Rocephin. PICC line in place - Postop Day2 from debridement- doing well, not requiring any pain medication at this time. - tissue specimen in formalin and not able to culture, no order for culture was placed Urinary tract infection, recurrent with underlying urinary retention - failed voiding trial- Dr. March on board with suprapubic catheter, discussed with MPOA yesterday who would like to think about this. Will not let placement hold up discharge - continue finasteride and tamulosin - urology, Dr. March on board, appreciate recs. - urine cx: E.coli and Proteus, sensitive to rocephin Seizure disorder - continue home Depakote Hyperlipidemia - continue home Rosuvastatin Diabetes mellitus. - Having some low sugars likely 2/2 poor PO intake. Decrease Lantus to 35u daily- likely has different diet at [place]. Continue Alogliptin 6.25mg daily for now. Encourage PO intake today. - ACHS accuchecks, hypoglycemia protocol Hypothyroidism - continue home synthroid VTE PPx: lovenox Code status: Full IVF: none, SL Dispo: d/c pending placement and bone cx to confirm appropriate abx.
[2018-03-26 06:40] LABS: #Eosinphils 0.2 thou/uL (0.0-0.7); #Lymphocytes 2.8 thou/uL (1.20-3.40); #Monocytes 0.6 thou/uL (0.11-0.59); #Neutrophils 5.1 thou/uL (1.40-6.50); %Basophils 0.4 % (0.0-1.0); %Eosinophils 2.5 % (0.0-10.0); %Monocytes 6.4 % (0.0-10.0); %Neutrophils 58.7 % (42.0-75.0); Hemoglobin 8.6 g/dL (14.0-18.0); Mean Corpuscular HGB CONC 30.9 g/dL (32.0-36.0); Mean Corpuscular Hemoglobin 26.5 pg (27.0-31.0); Mean Corpuscular Volume 85.6 fL (78.0-98.0); Mean Platelet Volume 6.4 fL (7.4-10.4); Platelet Count 320 thou/uL (130-400); RBC Distribution Width 15.4 % (11.5-14.5); Red Blood Cell (RBC) Count 3.24 mill/uL (4.70-6.10); White Blood Cell (WBC) Count 8.7 thou/uL (4.8-10.8)
[2018-03-26] MEDS: Levothyroxine Sodium 100 MCG TAB PO SCH ×2 (07:30→08:20)
[2018-03-26] MEDS: Valproic Acid 250 MG CAP PO SCH ×2 (08:20→21:06)
[2018-03-26] MEDS: Fish Oil 1,000 MG CAP PO SCH ×2 (08:20→21:05)
[2018-03-26] MEDS: Alogliptin 6.25 MG TAB PO SCH (08:20)
[2018-03-26] MEDS: Gabapentin 300 MG CAP PO SCH ×3 (08:20→21:06)
[2018-03-26] MEDS: Enoxaparin Sodium 40 MG/0.4 ML SYRINGE SC SCH (08:21)
[2018-03-26] MEDS: Folic Acid 1 MG TAB PO SCH (08:21)
[2018-03-26] MEDS: Famotidine 20 MG TAB PO SCH ×2 (08:21→21:05)
[2018-03-26] MEDS: Famotidine/PF 20 mg/2ml Vial SLOW IVP SCH (08:21)
[2018-03-26] MEDS: Insulin Glargine 35 UNITS in Pre-Filled Syringe 1 EACH SC SCH (08:22)
--- NOTE | 2018-03-26 12:01 | PRG ---
DATE OF SERVICE: 03/26/2018 Mr. Sanchez is sitting quietly in bed in no distress. His sister, who has power of attorney general, has deci ded against use of a suprapubic catheter. We are awaiting placement, otherwise.
[2018-03-26] MEDS: cefTRIAXone\\ROCEPHIN 2 GM in Sodium Chloride 0.9% 100 ML IVPB SCH (14:59)
[2018-03-26] MEDS: Finasteride 5 MG TAB PO SCH (15:00)
[2018-03-26] MEDS ORDERED: Vancomycin HCl 1.25 GM in Sodium Chloride 0.9% 250 ML 250 ML IVPB SCH (21:00)
[2018-03-26] MEDS: Tamsulosin HCl 0.4 MG CAP PO SCH (21:05)
[2018-03-26] MEDS: metroNIDAZOLE 500 MG TAB PO SCH (21:05)
[2018-03-26] MEDS: Rosuvastatin 10 MG TAB PO SCH (21:05)
[2018-03-26] MEDS: Vancomycin HCl 1.5 GM in Sodium Chloride 0.9% 250 ML 300 ML IVPB SCH (21:08)
[2018-03-27] MEDS: Levothyroxine Sodium 100 MCG TAB PO SCH (04:58)
[2018-03-27] MEDS: Vancomycin HCl 1.5 GM in Sodium Chloride 0.9% 250 ML 300 ML IVPB SCH ×2 (04:58→17:41)
--- NOTE | 2018-03-27 05:24 | PDOC.FM ---
- Subjective Subjective: Patient doing well this morning. Just finished all of his breakfast. He has no complaints of pain. Normal orientation for patient. Nursing staff reports no concerns. NAEO. - Objective MAR Reviewed: Yes Vital Signs & Weight: Vital Signs (12 hours) Temp Pulse Resp BP Pulse Ox 03/26/18 19:00 98.4 F 72 16 138/84 95 Weight Admit Weight 75.41 kg Weight 78.216 kg I&O: 03/25/18 03/26/18 03/27/18 06:59 06:59 06:59 Intake Total 1720 1355 420 Output Total 1350 1150 1550 Balance 370 205 -1130 Result Diagrams: 03/26/18 05:39 03/26/18 05:39 Phys Exam - Physical Examination Constitutional: NAD HEENT: moist MMs Respiratory: no wheezing, no rales, clear to auscultation bilateral Cardiovascular: RRR, no significant murmur Gastrointestinal: soft, non-tender 1+ pitting edema b/l feet Neurological: moves all 4 limbs Deviation from normal: AOx2 Dx/Plan (1) Osteomyelitis Code(s): M86.9 - OSTEOMYELITIS, UNSPECIFIED Status: Acute (2) Sacral decubitus ulcer Code(s): L89.159 - PRESSURE ULCER OF SACRAL REGION, UNSPECIFIED STAGE Status: Acute (3) Sepsis secondary to UTI Code(s): A41.9 - SEPSIS, UNSPECIFIED ORGANISM; N39.0 - URINARY TRACT INFECTION, SITE NOT SPECIFIED Status: Acute (4) Seizure disorder Code(s): G40.909 - EPILEPSY, UNSP, NOT INTRACTABLE, WITHOUT STATUS EPILEPTICUS Status: Acute (5) Cognitive impairment Code(s): R41.89 - OTH SYMPTOMS AND SIGNS W COGNITIVE FUNCTIONS AND AWARENESS Status: Acute (6) DM2 (diabetes mellitus, type 2) Status: Acute (7) HLD (hyperlipidemia) Code(s): E78.5 - HYPERLIPIDEMIA, UNSPECIFIED Status: Acute (8) Hypothyroid Code(s): E03.9 - HYPOTHYROIDISM, UNSPECIFIED Status: Acute - Plan Plan: Osteomyelitis from chronic sacral decubitus vs UTI, sepsis resolved - Continue IV Rocephin. PICC line in place - Postop Day2 from debridement- doing well, not requiring any pain medication at this time. - tissue specimen in formalin and not able to culture, no order for culture was placed - ID consulted to look over case and make Abx regimen. Urinary tract infection, recurrent with underlying urinary retention - failed voiding trial- Dr. March on board with suprapubic catheter, discussed with [facility] yesterday who would like to think about this. Will not let placement hold up discharge - continue finasteride and tamulosin - urology, Dr. March on board, appreciate recs. - urine cx: E.coli and Proteus, sensitive to rocephin Seizure disorder - continue home Depakote Hyperlipidemia - continue home Rosuvastatin Diabetes mellitus. - Having some low sugars likely 2/2 poor PO intake. Decrease Lantus to 35u daily- likely has different diet at [place]. Continue Alogliptin 6.25mg daily for now. Encourage PO intake today. - ACHS accuchecks, hypoglycemia protocol Hypothyroidism - continue home synthroid VTE PPx: lovenox Code status: Full IVF: none, SL Dispo: d/c pending placement and ID recs.
[2018-03-27] MEDS: Finasteride 5 MG TAB PO SCH (07:52)
[2018-03-27] MEDS: Fish Oil 1,000 MG CAP PO SCH ×2 (07:52→20:03)
[2018-03-27] MEDS: Famotidine 20 MG TAB PO SCH ×2 (07:53→20:02)
[2018-03-27] MEDS: Folic Acid 1 MG TAB PO SCH (07:53)
[2018-03-27] MEDS: Enoxaparin Sodium 40 MG/0.4 ML SYRINGE SC SCH (07:53)
[2018-03-27] MEDS: Alogliptin 6.25 MG TAB PO SCH (07:53)
[2018-03-27] MEDS: Gabapentin 300 MG CAP PO SCH ×3 (07:53→20:03)
[2018-03-27] MEDS: metroNIDAZOLE 500 MG TAB PO SCH ×3 (07:53→20:03)
[2018-03-27] MEDS: Insulin Glargine 35 UNITS in Pre-Filled Syringe 1 EACH SC SCH (07:54)
[2018-03-27] MEDS: Sodium Chloride 0.9% 1,000 ML IV SCH ×2 (08:24→20:02)
--- NOTE | 2018-03-27 10:00 | CON ---
DATE OF CONSULTATION: 03/26/2018 REASON FOR CONSULTATION: Fever and decubitus ulcer with osteomyelitis and invasive urinary tract infection. HISTORY OF PRESENT ILLNESS: A 62-year-old patient with mental retardation who is a resident at a snf. He also has a history of urological problems with prior urethral stricture, which was dilated elsewhere. He recently was evaluated by Dr. March and he had made recommendations, including voiding trial at a snf. This was not carried out and the patient ended up admitted with invasive urinary tract infection with bacteremia. In addition, the patient underwent surgical debridement by Dr. Esqueda and we were asked to make recommendations in terms of antimicrobial therapy. Mr. Sanchez is awake. He has quite significant dysarthria and it is very difficult to understand his speech, seems to understand my questions. He does follow some commands, but not consistently. Has had no diarrhea. He denies headaches. Does not seem to be in any respiratory difficulty at this time. PAST MEDICAL HISTORY: Includes hypertension, type 2 diabetes, mental retardation, neuropathy, ischial decubitus ulcer, and urological problems with urethral stricture, prior dilation. There is a question of urinary outflow obstruction associated with prostatic hypertrophy, although there is not well documented in the record. FAMILY HISTORY: Not available. SOCIAL HISTORY: correction resident. No smoking history. CURRENT MEDICATIONS: Tylenol, [place], DuoNeb, alogliptin, ceftriaxone, Pepcid, Proscar, fish oil, Neurontin, insulin, morphine, Crestor, tamsulosin, valproic acid, Depakene. PHYSICAL EXAMINATION: VITAL SIGNS: Normal temperature since admission, blood pressure 140/83, pulse 79, O2 sat 96, respiratory rate 16-20. SKIN: Shows the decubitus ulcer in the left ischial area, which has been debrided by Dr. Esqueda that was stage 4 and the tip of the ischial was friable and had to be debrided. The patient has a Roberts catheter inserted. His I's and O's have been slightly positive over the past few days, the patient has a peripheral IV access and no lymphadenopathy. HEENT: Ocular movements conjugate. Oral cavity, numerous teeth in place with marked decay and gum disease, periodontitis. NECK: Supple. No jugular vein distention. LUNGS: With symmetric clear breath sounds. HEART: S1, S2, regular rate. No S3, S4. ABDOMEN: Soft, moderately distended. No evidence of ascites, tympanitic. No organomegaly noted. No bladder distention. EXTREMITIES: He moves his upper extremities well, very symmetrically, although I could not identify any movements in the lower extremities. His plantar responses are indifferent. No clonus noted. No evidence of joint inflammatory activity noted. Pulses are 1+ in dorsalis pedis. NEUROLOGIC: He is awake. He keeps his left eye closed. There is complete opacification of the intraocular media in the left side. The right orbit appears to be normal. He knows his name, but he could not tell me where he was or the date. He has got quite severe dysarthria and expressive aphasia. LABORATORY DATA: Urinalysis greater than 50 wbc's. White cell count is 12.5, down to 8.7, hemoglobin 11 down to 8.6, and platelet count of 320 with a normal differential. Sodium 139, creatinine 0.58. Liver profile normal. Albumin 3.0 and globulin 3.8. Microbiology with one set of blood cultures with E. coli with a very broad susceptibility profile except for quinolones. It is susceptible to trimethoprim and sulfamethoxazole. In the urine, he has a Proteus mirabilis, which was resistant to Bactrim and nitrofurantoin and resistant to quinolones. IMAGING STUDIES: Shows the bone scan with the uptake area in the ischium left side, there is a previous CT of abdomen and pelvis done in February this year, which showed thickening of urinary bladder wall, some free fluid in the abdomen and pelvis, which was nonspecific. ASSESSMENT: 1. Mental retardation. 2. Type 2 diabetes. 3. Some neurological condition that led to what appears to be paraplegia. It is not clear if this is a traumatic event or an alternate cause of paralysis in lower extremities. 4. Urinary outflow tract obstruction associated with urethral stricture in the past, now with an indwelling Roberts catheter. The patient had been evaluated by Dr. March, he had recommended voiding trial, but which was not carried out at the snf. The patient has developed urosepsis now with a fairly susceptible strain of E. coli except for quinolones unfortunately. 5. Left-sided ischial osteomyelitis, status post surgical debridement. DISCUSSION: Unfortunately, no cultures were submitted from the surgical debridement from the left-sided ischial osteomyelitis and therefore we will have to cover assuming resistant pathogen such as MRSA, also will have to assume anaerobes and gram-negative rods. The urinary sepsis has organisms are partly susceptible to Bactrim, but Proteus mirabilis would require treatment with cephalosporin, so what I am going to recommend is a combination of Rocephin and vancomycin as well as oral Metronidazole. The vancomycin is geared towards the potential role of MRSA in the decubitus ulcer with osteomyelitis. This would require placement of a PICC line and treatment until sometime around 05/01, approximately with a negative pressure dressing. Because of his mental state, he will need to have special care with the protection of the PICC line since there is a high risk of accidental removal. Weekly labs with CBC, CRP, vancomycin trough, and CMP recommended. The duration of treatment for the urinary tract complications is much shorter, but will have to gear our treatment also towards the osteomyelitis. Otherwise, we will have complications including a readmission need for further surgical debridement and so on. MTDD
--- NOTE | 2018-03-27 10:42 | PRG ---
DATE OF SERVICE: 03/27/2018 Nima is cheerful this morning. He is sitting in bed quietly in no distress. He was seen yesterday by Dr. Lopez and we certainly appreciate his recommendations. We are still awaiting mcc placement and will alter our antibiotic coverage to conform to the recommendations of Dr. Lopez.
[2018-03-27] MEDS ORDERED: Morphine 4 MG/ML VIAL SLOW IVP PRN ×2 (13:45)
[2018-03-27] MEDS: cefTRIAXone\\ROCEPHIN 2 GM in Sodium Chloride 0.9% 100 ML IVPB SCH (14:05)
[2018-03-27] MEDS: Valproic Acid 250 MG CAP PO SCH (20:03)
[2018-03-27] MEDS: Tamsulosin HCl 0.4 MG CAP PO SCH (20:03)
[2018-03-27] MEDS: Rosuvastatin 10 MG TAB PO SCH (20:03)
[2018-03-28 05:38] LABS: Vancomycin, Trough 22.1 ug/mL
[2018-03-28] MEDS: Sodium Chloride 0.9% 1,000 ML IV SCH ×2 (05:53→19:19)
[2018-03-28] MEDS: Levothyroxine Sodium 100 MCG TAB PO SCH (05:53)
--- NOTE | 2018-03-28 06:03 | PDOC.FM ---
- Subjective Subjective: Patient resting in bed. Patient does complain of right upper arm pain when he raises it above 90degrees. No other complaints or concerns. Of notes, due to patient's mental status it is difficult to understand or ascertain his symptoms and complaints. - Objective Vital Signs & Weight: Vital Signs (12 hours) Temp Pulse Resp BP Pulse Ox 03/27/18 19:45 98 03/27/18 19:29 99.1 F 88 20 148/87 H 98 Weight Admit Weight 75.41 kg Weight 78.216 kg I&O: 03/26/18 03/27/18 03/28/18 06:59 06:59 06:59 Intake Total 1355 420 900 Output Total 1150 1550 1900 Balance 205 -1130 -1000 Result Diagrams: 03/26/18 05:39 03/26/18 05:39 <Phyllis Kang - Last Filed: 03/28/18 10:50> - Objective Vital Signs & Weight: Vital Signs (12 hours) Temp Pulse Resp BP Pulse Ox 03/28/18 08:00 94 L 03/28/18 07:15 98.2 F 85 16 138/87 94 L Weight Admit Weight 75.41 kg Weight 78.216 kg I&O: 03/27/18 03/28/18 03/29/18 06:59 06:59 06:59 Intake Total 420 2250 Output Total 1550 1900 Balance -1130 350 Result Diagrams: 03/26/18 05:39 03/26/18 05:39 <Migue Barillas - Last Filed: 03/28/18 11:12> Phys Exam - Physical Examination Constitutional: NAD HEENT: PERRLA, moist MMs, sclera anicteric Neck: full ROM Respiratory: clear to auscultation bilateral Cardiovascular: RRR, no significant murmur, no rub Gastrointestinal: soft, non-tender, no distention, positive bowel sounds Musculoskeletal: no edema bilateral upper extremities non TTP, limited ROM Neurological: non-focal, moves all 4 limbs Psychiatric: normal affect, A&O x 3 Skin: no rash <Phyllis Kang - Last Filed: 03/28/18 10:50> Dx/Plan (1) Osteomyelitis Code(s): M86.9 - OSTEOMYELITIS, UNSPECIFIED Status: Acute (2) Sacral decubitus ulcer Code(s): L89.159 - PRESSURE ULCER OF SACRAL REGION, UNSPECIFIED STAGE Status: Acute (3) Seizure disorder Code(s): G40.909 - EPILEPSY, UNSP, NOT INTRACTABLE, WITHOUT STATUS EPILEPTICUS Status: Acute (4) Sepsis secondary to UTI Code(s): A41.9 - SEPSIS, UNSPECIFIED ORGANISM; N39.0 - URINARY TRACT INFECTION, SITE NOT SPECIFIED Status: Acute (5) DM2 (diabetes mellitus, type 2) Status: Acute (6) GERD (gastroesophageal reflux disease) Code(s): K21.9 - GASTRO-ESOPHAGEAL REFLUX DISEASE WITHOUT ESOPHAGITIS Status: Acute (7) HLD (hyperlipidemia) Code(s): E78.5 - HYPERLIPIDEMIA, UNSPECIFIED Status: Acute (8) Hypothyroid Code(s): E03.9 - HYPOTHYROIDISM, UNSPECIFIED Status: Acute (9) Sacral decubitus ulcer, stage IV Code(s): L89.154 - PRESSURE ULCER OF SACRAL REGION, STAGE 4 Status: Acute - Plan Plan: Osteomyelitis from chronic sacral decubitus vs UTI, sepsis resolved - Continue IV Rocephin. PICC line in place - Postop Day3 from debridement- doing well, not requiring any pain medication at this time. - tissue specimen in formalin and not able to culture, no order for culture was placed - ID consulted: recommended abx regimen of rocefin, vanc and flagel Urinary tract infection, recurrent with underlying urinary retention - failed voiding trial- Dr. March on board with suprapubic catheter, discussed with [facility] yesterday who would like to think about this. Will not let placement hold up discharge - continue finasteride and tamulosin - urology, Dr. March on board, appreciate recs. - urine cx: E.coli and Proteus, sensitive to rocephin Seizure disorder - continue home Depakote Hyperlipidemia - continue home Rosuvastatin Diabetes mellitus - Having some low sugars likely 2/2 poor PO intake. Decrease Lantus to 20u daily- likely has different diet at [place]. Continue Alogliptin 6.25mg daily for now. Encourage PO intake today. - ACHS accuchecks, hypoglycemia protocol Hypothyroidism - continue home synthroid VTE PPx: lovenox Code status: Full IVF: none, SL Dispo: d/c pending placement and ID recs. <Phyllis Kang - Last Filed: 03/28/18 10:50> Attending Addendum - Attending Addendum Date/Time: 03/28/18 1111 I personally evaluated the patient and discussed the management with Dr. Kang. I agree with and repeated the History, Examination, Assessment and Plan documented above with any addition or exceptions noted below. Monitor sugars closely. Continue antibiotics. He denies arm pain to me, will follow. <Migue Barillas - Last Filed: 03/28/18 11:12>
[2018-03-28] MEDS ORDERED: Vancomycin HCl 1.25 GM in Sodium Chloride 0.9% 250 ML 250 ML IVPB SCH (06:45)
[2018-03-28] MEDS: Vancomycin HCl 1.5 GM in Sodium Chloride 0.9% 250 ML 300 ML IVPB SCH (07:11)
[2018-03-28] MEDS: Alogliptin 6.25 MG TAB PO SCH (07:59)
[2018-03-28] MEDS: Famotidine 20 MG TAB PO SCH ×2 (07:59→20:45)
[2018-03-28] MEDS: Finasteride 5 MG TAB PO SCH (08:00)
[2018-03-28] MEDS: metroNIDAZOLE 500 MG TAB PO SCH ×3 (08:00→20:45)
[2018-03-28] MEDS: Gabapentin 300 MG CAP PO SCH ×3 (08:00→20:45)
[2018-03-28] MEDS: Fish Oil 1,000 MG CAP PO SCH ×2 (08:01→20:45)
[2018-03-28] MEDS: Enoxaparin Sodium 40 MG/0.4 ML SYRINGE SC SCH (08:01)
[2018-03-28] MEDS: Folic Acid 1 MG TAB PO SCH (08:01)
[2018-03-28] MEDS: Insulin Glargine 20 UNITS in Pre-Filled Syringe 1 EACH SC SCH (08:14)
[2018-03-28] MEDS ORDERED: Insulin Glargine 10 UNITS in Pre-Filled Syringe 1 EACH SC SCH (09:00)
[2018-03-28] MEDS ORDERED: Acetaminophen 325 MG TAB PO SCH (09:00)
[2018-03-28] MEDS: Valproic Acid 250 MG CAP PO SCH ×2 (10:03→20:46)
[2018-03-28] MEDS: cefTRIAXone\\ROCEPHIN 2 GM in Sodium Chloride 0.9% 100 ML IVPB SCH (15:05)
[2018-03-28] MEDS: Vancomycin HCl 1.25 GM in Sodium Chloride 0.9% 250 ML 250 ML IVPB SCH (17:25)
[2018-03-28] MEDS: Rosuvastatin 10 MG TAB PO SCH (20:45)
[2018-03-28] MEDS: Tamsulosin HCl 0.4 MG CAP PO SCH (20:46)
[2018-03-29] MEDS: Levothyroxine Sodium 100 MCG TAB PO SCH (05:30)
[2018-03-29] MEDS: Vancomycin HCl 1.25 GM in Sodium Chloride 0.9% 250 ML 250 ML IVPB SCH ×2 (05:30→18:02)
--- NOTE | 2018-03-29 06:23 | PDOC.FM ---
- Subjective Subjective: Patient resting comfortably in bed. Denies any pain. NO complaints or concerns. Patient getting ready to eat breakfast. - Objective Vital Signs & Weight: Vital Signs (12 hours) Temp Pulse Resp BP Pulse Ox 03/29/18 04:00 98.2 F 82 16 128/70 03/28/18 21:20 100 03/28/18 20:00 97.6 F 78 18 105/57 L 100 Weight Admit Weight 75.41 kg Weight 78.216 kg I&O: 03/27/18 03/28/18 03/29/18 06:59 06:59 06:59 Intake Total 420 2250 1770 Output Total 1550 1900 1900 Balance -1130 350 -130 Result Diagrams: 03/29/18 06:38 03/29/18 06:38 <Phyllis Kang - Last Filed: 03/29/18 07:44> - Objective Vital Signs & Weight: Vital Signs (12 hours) Temp Pulse Resp BP Pulse Ox 03/29/18 08:00 93 L 03/29/18 07:42 99.0 F 88 20 129/78 93 L 03/29/18 04:00 98.2 F 82 16 128/70 Weight Admit Weight 75.41 kg Weight 78.216 kg I&O: 03/28/18 03/29/18 03/30/18 06:59 06:59 06:59 Intake Total 2250 1770 Output Total 1900 1900 Balance 350 -130 Result Diagrams: 03/29/18 06:38 03/29/18 06:38 <Migue Barillas - Last Filed: 03/29/18 12:34> Phys Exam - Physical Examination Constitutional: NAD HEENT: PERRLA, moist MMs, sclera anicteric Neck: full ROM Respiratory: clear to auscultation bilateral Cardiovascular: RRR, no significant murmur Gastrointestinal: soft, non-tender, no distention Musculoskeletal: no edema, pulses present Neurological: non-focal limited ROM in all extremities Psychiatric: normal affect, A&O x 3 Skin: no rash <Phyllis Kang - Last Filed: 03/29/18 07:44> Dx/Plan (1) Osteomyelitis Code(s): M86.9 - OSTEOMYELITIS, UNSPECIFIED Status: Acute (2) Sacral decubitus ulcer Code(s): L89.159 - PRESSURE ULCER OF SACRAL REGION, UNSPECIFIED STAGE Status: Acute (3) Seizure disorder Code(s): G40.909 - EPILEPSY, UNSP, NOT INTRACTABLE, WITHOUT STATUS EPILEPTICUS Status: Acute (4) Sepsis secondary to UTI Code(s): A41.9 - SEPSIS, UNSPECIFIED ORGANISM; N39.0 - URINARY TRACT INFECTION, SITE NOT SPECIFIED Status: Acute (5) DM2 (diabetes mellitus, type 2) Status: Acute (6) GERD (gastroesophageal reflux disease) Code(s): K21.9 - GASTRO-ESOPHAGEAL REFLUX DISEASE WITHOUT ESOPHAGITIS Status: Acute (7) HLD (hyperlipidemia) Code(s): E78.5 - HYPERLIPIDEMIA, UNSPECIFIED Status: Acute (8) Hypothyroid Code(s): E03.9 - HYPOTHYROIDISM, UNSPECIFIED Status: Acute (9) Sacral decubitus ulcer, stage IV Code(s): L89.154 - PRESSURE ULCER OF SACRAL REGION, STAGE 4 Status: Acute - Plan Plan: Osteomyelitis from chronic sacral decubitus vs UTI, sepsis resolved - Continue IV Rocephin. PICC line in place - Postop Day 4 from debridement- doing well, not requiring any pain medication at this time. - tissue specimen in formalin and not able to culture, no order for culture was placed - ID consulted: recommended abx regimen of rocefin, vanc and flagel - Next vanc trough for 03/29 @ 1700 Urinary tract infection, recurrent with underlying urinary retention - failed voiding trial- Dr. March on board with suprapubic catheter, [facility] with [facility] who would like to think about this. Will not let placement hold up discharge - continue finasteride and tamulosin - urology, Dr. March on board, appreciate recs. - urine cx: E.coli and Proteus, sensitive to rocephin Seizure disorder - continue home Depakote Hyperlipidemia - continue home Rosuvastatin Diabetes mellitus - Having some low sugars likely 2/2 poor PO intake. Decrease Lantus to 20u daily- likely has different diet at [place]. Continue Alogliptin 6.25mg daily for now. Encourage PO intake today. - ACHS accuchecks, hypoglycemia protocol Hypothyroidism - continue home synthroid VTE PPx: lovenox Code status: Full IVF: none, SL Dispo: d/c pending placement and ID recs. <Phyllis Kang - Last Filed: 03/29/18 07:44> Attending Addendum - Attending Addendum Date/Time: 03/29/18 1228 I personally evaluated the patient and discussed the management with Dr. Kang. I agree with and repeated the History, Examination, Assessment and Plan documented above with any addition or exceptions noted below. Denies f/c/cp/sob. Replete K. Await placement. <Migue Barillas - Last Filed: 03/29/18 12:34>
[2018-03-29 06:53] LABS: #Eosinphils 0.2 thou/uL (0.0-0.7); #Lymphocytes 2.8 thou/uL (1.20-3.40); #Monocytes 0.5 thou/uL (0.11-0.59); #Neutrophils 4.9 thou/uL (1.40-6.50); %Basophils 0.2 % (0.0-1.0); %Lymphocytes 33.6 % (21.0-51.0); %Monocytes 5.7 % (0.0-10.0); %Neutrophils 58.5 % (42.0-75.0); Hemoglobin 8.7 g/dL (14.0-18.0); Mean Corpuscular HGB CONC 30.5 g/dL (32.0-36.0); Mean Corpuscular Hemoglobin 26.2 pg (27.0-31.0); Mean Corpuscular Volume 85.9 fL (78.0-98.0); Platelet Count 336 thou/uL (130-400); RBC Distribution Width 15.6 % (11.5-14.5); Red Blood Cell (RBC) Count 3.32 mill/uL (4.70-6.10); White Blood Cell (WBC) Count 8.3 thou/uL (4.8-10.8)
[2018-03-29 07:12] LABS: Anion Gap 10 mmol/L (10-20); BUN (Urea Nitrogen) 7 mg/dL (8.4-25.7); Calc. Creatinine Clearance 162 mL/min (70-130); Calcium 8.7 mg/dL (7.8-10.44); Carbon Dioxide 25 mmol/L (23-31); Chloride 106 mmol/L (98-107); Estimated GFR-MDRD Greater than 90; Glucose 88 mg/dL (80-115); Potassium 3.4 mmol/L (3.5-5.1); Sodium 138 mmol/L (136-145)
[2018-03-29] MEDS: Finasteride 5 MG TAB PO SCH (07:56)
[2018-03-29] MEDS: Alogliptin 6.25 MG TAB PO SCH (07:56)
[2018-03-29] MEDS: Famotidine 20 MG TAB PO SCH ×2 (07:57→20:27)
[2018-03-29] MEDS: metroNIDAZOLE 500 MG TAB PO SCH ×3 (07:58→20:27)
[2018-03-29] MEDS: Folic Acid 1 MG TAB PO SCH (07:58)
[2018-03-29] MEDS: Fish Oil 1,000 MG CAP PO SCH ×2 (07:58→20:27)
[2018-03-29] MEDS: Gabapentin 300 MG CAP PO SCH ×3 (07:58→20:27)
[2018-03-29] MEDS: Valproic Acid 250 MG CAP PO SCH ×2 (07:59→20:27)
[2018-03-29] MEDS: Enoxaparin Sodium 40 MG/0.4 ML SYRINGE SC SCH (08:02)
[2018-03-29] MEDS: Insulin Glargine 20 UNITS in Pre-Filled Syringe 1 EACH SC SCH (08:10)
[2018-03-29] MEDS ORDERED: Potassium Chloride 20 MEQ TAB PO SCH (12:45)
[2018-03-29] MEDS: cefTRIAXone\\ROCEPHIN 2 GM in Sodium Chloride 0.9% 100 ML IVPB SCH (15:03)
[2018-03-29 17:42] LABS: Vancomycin, Trough 19.1 ug/mL
[2018-03-29] MEDS: Tamsulosin HCl 0.4 MG CAP PO SCH (20:26)
[2018-03-29] MEDS: Rosuvastatin 10 MG TAB PO SCH (20:26)
[2018-03-30] MEDS: Levothyroxine Sodium 100 MCG TAB PO SCH (05:47)
[2018-03-30] MEDS: Vancomycin HCl 1.25 GM in Sodium Chloride 0.9% 250 ML 250 ML IVPB SCH ×2 (05:48→17:30)
[2018-03-30] MEDS: Fish Oil 1,000 MG CAP PO SCH ×2 (08:24→22:58)
[2018-03-30] MEDS: Famotidine 20 MG TAB PO SCH ×2 (08:24→22:58)
[2018-03-30] MEDS: Valproic Acid 250 MG CAP PO SCH ×2 (08:24→22:55)
[2018-03-30] MEDS: Alogliptin 6.25 MG TAB PO SCH (08:24)
[2018-03-30] MEDS: Gabapentin 300 MG CAP PO SCH ×3 (08:24→22:58)
[2018-03-30] MEDS: Folic Acid 1 MG TAB PO SCH (08:24)
[2018-03-30] MEDS: metroNIDAZOLE 500 MG TAB PO SCH ×3 (08:24→22:58)
[2018-03-30] MEDS: Insulin Glargine 20 UNITS in Pre-Filled Syringe 1 EACH SC SCH (08:25)
[2018-03-30] MEDS: Finasteride 5 MG TAB PO SCH (08:25)
[2018-03-30] MEDS: Enoxaparin Sodium 40 MG/0.4 ML SYRINGE SC SCH (08:25)
--- NOTE | 2018-03-30 08:30 | PDOC.FM ---
- Subjective Subjective: Patient resting this morning. He denies pain and has no complaints. Nursing staff reports no problems to me overnight. - Objective MAR Reviewed: Yes Vital Signs & Weight: Vital Signs (12 hours) Temp Pulse Resp BP Pulse Ox 03/30/18 07:49 99.1 F 88 18 130/84 94 L 03/29/18 22:31 97 Weight Admit Weight 75.41 kg Weight 78.216 kg I&O: 03/29/18 03/30/18 03/31/18 06:59 06:59 06:59 Intake Total 1770 1780 Output Total 1900 1450 Balance -130 330 Result Diagrams: 03/29/18 06:38 03/29/18 06:38 <Lily Nicholson - Last Filed: 03/30/18 08:27> - Objective Vital Signs & Weight: Vital Signs (12 hours) Temp Pulse Resp BP Pulse Ox 03/30/18 07:49 99.1 F 88 18 130/84 94 L Weight Admit Weight 75.41 kg Weight 78.216 kg I&O: 03/29/18 03/30/18 03/31/18 06:59 06:59 06:59 Intake Total 1770 1780 Output Total 1900 1450 Balance -130 330 Result Diagrams: 03/29/18 06:38 03/29/18 06:38 <Migue Barillas - Last Filed: 03/30/18 10:58> Phys Exam - Physical Examination Constitutional: NAD HEENT: moist MMs Respiratory: no wheezing, no rales, clear to auscultation bilateral Cardiovascular: RRR, no significant murmur Gastrointestinal: soft, non-tender Deviation from normal: at baseline AOx2 <Lily Nicholson - Last Filed: 03/30/18 08:27> Dx/Plan (1) Osteomyelitis Code(s): M86.9 - OSTEOMYELITIS, UNSPECIFIED Status: Acute (2) Sacral decubitus ulcer Code(s): L89.159 - PRESSURE ULCER OF SACRAL REGION, UNSPECIFIED STAGE Status: Acute (3) Sepsis secondary to UTI Code(s): A41.9 - SEPSIS, UNSPECIFIED ORGANISM; N39.0 - URINARY TRACT INFECTION, SITE NOT SPECIFIED Status: Acute (4) Seizure disorder Code(s): G40.909 - EPILEPSY, UNSP, NOT INTRACTABLE, WITHOUT STATUS EPILEPTICUS Status: Acute (5) Cognitive impairment Code(s): R41.89 - OTH SYMPTOMS AND SIGNS W COGNITIVE FUNCTIONS AND AWARENESS Status: Acute (6) DM2 (diabetes mellitus, type 2) Status: Acute (7) HLD (hyperlipidemia) Code(s): E78.5 - HYPERLIPIDEMIA, UNSPECIFIED Status: Acute (8) Hypothyroid Code(s): E03.9 - HYPOTHYROIDISM, UNSPECIFIED Status: Acute - Plan Plan: Osteomyelitis from chronic sacral decubitus vs UTI, sepsis resolved - Continue IV Rocephin, Vanc, and Flagyl. PICC line in place - Postop Day5 from debridement- doing well, not requiring any pain medication at this time. - ID consulted, appreciat recs. Urinary tract infection, recurrent with underlying urinary retention - failed voiding trial- Dr. March on board with suprapubic catheter, discussed with [facility] who would like to hold off on this and do as outpatient. - continue finasteride and tamulosin - urology, Dr. March on board, appreciate recs. - urine cx: E.coli and Proteus, sensitive to rocephin Seizure disorder - continue home Depakote Hyperlipidemia - continue home Rosuvastatin Diabetes mellitus. - Well controlled with Lantus 20U and Alogliptin 6.25mg daily. - ACHS accuchecks, hypoglycemia protocol Hypothyroidism - continue home synthroid VTE PPx: lovenox Code status: Full IVF: none, SL Dispo: d/c pending placement. <Lily Nicholson - Last Filed: 03/30/18 08:27> Attending Addendum - Attending Addendum Date/Time: 03/30/18 5445 I personally evaluated the patient and discussed the management with Dr. Nicholson. I agree with and repeated the History, Examination, Assessment and Plan documented above with any addition or exceptions noted below. He denies cp, sob , n/v. <Migue Barillas - Last Filed: 03/30/18 10:58>
[2018-03-30] MEDS: cefTRIAXone\\ROCEPHIN 2 GM in Sodium Chloride 0.9% 100 ML IVPB SCH (14:12)
--- NOTE | 2018-03-30 18:50 | PRG ---
DATE OF SERVICE: 03/30/2018 SUBJECTIVE: Feeling better. Denies any pain, no diarrhea. PHYSICAL EXAMINATION: VITAL SIGNS: T-max 99.1, blood pressure 150/90, pulse 88, respirations 20, O2 saturation 94%. GENERAL: Appears no distress. Roberts catheter in place. Small little area of heel ulceration on the left side. LUNGS: Symmetric air entry. HEART: S1, S2 with regular rate. No S3, S4. ABDOMEN: Soft and negative pressure dressing over the heel area. ASSESSMENT AND DISCUSSION: Mental retardation, type 2 diabetes, paraplegia from unclear neurological condition. Urinary outflow tract obstruction associated with the urethral stricture with an indwell ing Roberts catheter. Left-sided ischial osteomyelitis status post surgical debridement with complex w ound care. Plan is to continue with IV antimicrobial therapy with Rocephin and vancomycin plus oral metronidazole. End date of therapy until around 05/01/2018. Follow up labs.
[2018-03-30] MEDS: Rosuvastatin 10 MG TAB PO SCH (22:58)
[2018-03-30] MEDS: Tamsulosin HCl 0.4 MG CAP PO SCH (22:59)
[2018-03-31] MEDS: Levothyroxine Sodium 100 MCG TAB PO SCH (05:26)
[2018-03-31] MEDS: Vancomycin HCl 1.25 GM in Sodium Chloride 0.9% 250 ML 250 ML IVPB SCH ×2 (05:26→17:57)
[2018-03-31] MEDS: metroNIDAZOLE 500 MG TAB PO SCH ×3 (09:08→20:20)
[2018-03-31] MEDS: Alogliptin 6.25 MG TAB PO SCH (09:08)
[2018-03-31] MEDS: Gabapentin 300 MG CAP PO SCH ×3 (09:09→20:20)
[2018-03-31] MEDS: Valproic Acid 250 MG CAP PO SCH ×2 (09:09→20:20)
[2018-03-31] MEDS: Enoxaparin Sodium 40 MG/0.4 ML SYRINGE SC SCH (09:09)
[2018-03-31] MEDS: Insulin Glargine 20 UNITS in Pre-Filled Syringe 1 EACH SC SCH (09:09)
[2018-03-31] MEDS: Fish Oil 1,000 MG CAP PO SCH ×2 (09:09→20:21)
[2018-03-31] MEDS: Finasteride 5 MG TAB PO SCH (09:09)
[2018-03-31] MEDS: Famotidine 20 MG TAB PO SCH ×2 (09:09→20:21)
[2018-03-31] MEDS: Folic Acid 1 MG TAB PO SCH (09:09)
--- NOTE | 2018-03-31 09:12 | PDOC.FM ---
- Subjective Subjective: Patient is resting comfortably this morning and without complaints. No acute events overnight. He denies pain, sob, and n/v. - Objective MAR Reviewed: Yes Vital Signs & Weight: Vital Signs (12 hours) Temp Pulse Resp BP Pulse Ox 03/31/18 07:54 99.1 F 89 20 121/73 95 Weight Admit Weight 75.41 kg Weight 78.216 kg I&O: 03/30/18 03/31/18 04/01/18 06:59 06:59 06:59 Intake Total 1780 1050 Output Total 1450 1900 Balance 330 -850 Result Diagrams: 03/29/18 06:38 03/29/18 06:38 <Lily Nicholson - Last Filed: 03/31/18 09:10> - Objective Vital Signs & Weight: Vital Signs (12 hours) Temp Pulse Resp BP Pulse Ox 03/31/18 19:27 99.4 F 90 20 138/80 93 L Weight Admit Weight 75.41 kg Weight 78.216 kg I&O: 03/30/18 03/31/18 04/01/18 06:59 06:59 06:59 Intake Total 1780 1050 1050 Output Total 1450 1900 1200 Balance 330 -850 -150 Result Diagrams: 03/29/18 06:38 03/29/18 06:38 <Migue Barillas - Last Filed: 03/31/18 22:13> Phys Exam - Physical Examination Constitutional: NAD HEENT: moist MMs Respiratory: no wheezing, no rales, clear to auscultation bilateral Cardiovascular: RRR, no significant murmur Gastrointestinal: soft, non-tender, no distention Psychiatric: normal affect <Lily Nicholson - Last Filed: 03/31/18 09:10> Dx/Plan (1) Osteomyelitis Code(s): M86.9 - OSTEOMYELITIS, UNSPECIFIED Status: Acute (2) Sacral decubitus ulcer Code(s): L89.159 - PRESSURE ULCER OF SACRAL REGION, UNSPECIFIED STAGE Status: Acute (3) Sepsis secondary to UTI Code(s): A41.9 - SEPSIS, UNSPECIFIED ORGANISM; N39.0 - URINARY TRACT INFECTION, SITE NOT SPECIFIED Status: Acute (4) Seizure disorder Code(s): G40.909 - EPILEPSY, UNSP, NOT INTRACTABLE, WITHOUT STATUS EPILEPTICUS Status: Acute (5) Cognitive impairment Code(s): R41.89 - OTH SYMPTOMS AND SIGNS W COGNITIVE FUNCTIONS AND AWARENESS Status: Acute (6) DM2 (diabetes mellitus, type 2) Status: Acute (7) HLD (hyperlipidemia) Code(s): E78.5 - HYPERLIPIDEMIA, UNSPECIFIED Status: Acute (8) Hypothyroid Code(s): E03.9 - HYPOTHYROIDISM, UNSPECIFIED Status: Acute - Plan Plan: Osteomyelitis from chronic sacral decubitus vs UTI, sepsis resolved - Continue IV Rocephin, Vanc, and Flagyl. PICC line in place - Postop Day6 from debridement- doing well, not requiring any pain medication at this time. - continue wound care - ID consulted, appreciate recs. Urinary tract infection, recurrent with underlying urinary retention - failed voiding trial- Dr. March on board with suprapubic catheter, discussed with [facility] who would like to hold off on this and do as outpatient. - continue finasteride and tamulosin - urology, Dr. March on board, appreciate recs. - urine cx: E.coli and Proteus, sensitive to rocephin Seizure disorder - continue home Depakote Hyperlipidemia - continue home Rosuvastatin Diabetes mellitus. - Well controlled with Lantus 20U and Alogliptin 6.25mg daily. - ACHS accuchecks, hypoglycemia protocol Hypothyroidism - continue home synthroid VTE PPx: lovenox Code status: Full IVF: none, SL Dispo: d/c pending placement. <Lily Nicholson - Last Filed: 03/31/18 09:10> Attending Addendum - Attending Addendum Date/Time: 03/31/18 3283 I personally evaluated the patient and discussed the management with Dr. Nicholson. I agree with and repeated the History, Examination, Assessment and Plan documented above with any addition or exceptions noted below. <Migue Barillas - Last Filed: 03/31/18 22:13>
[2018-03-31] MEDS: cefTRIAXone\\ROCEPHIN 2 GM in Sodium Chloride 0.9% 100 ML IVPB SCH (13:57)
[2018-03-31 17:36] LABS: Vancomycin, Trough 20.7 ug/mL
[2018-03-31] MEDS: Rosuvastatin 10 MG TAB PO SCH (20:20)
[2018-03-31] MEDS: Tamsulosin HCl 0.4 MG CAP PO SCH (20:21)
[2018-04-01] MEDS: Vancomycin HCl 1.25 GM in Sodium Chloride 0.9% 250 ML 250 ML IVPB SCH ×2 (04:51→18:18)
[2018-04-01] MEDS: Levothyroxine Sodium 100 MCG TAB PO SCH (04:51)
[2018-04-01] MEDS: Gabapentin 300 MG CAP PO SCH ×3 (09:33→20:27)
[2018-04-01] MEDS: metroNIDAZOLE 500 MG TAB PO SCH ×3 (09:33→20:26)
[2018-04-01] MEDS: Fish Oil 1,000 MG CAP PO SCH ×2 (09:33→20:27)
[2018-04-01] MEDS: Enoxaparin Sodium 40 MG/0.4 ML SYRINGE SC SCH (09:33)
[2018-04-01] MEDS: Famotidine 20 MG TAB PO SCH ×2 (09:33→20:27)
[2018-04-01] MEDS: Alogliptin 6.25 MG TAB PO SCH (09:33)
[2018-04-01] MEDS: Folic Acid 1 MG TAB PO SCH (09:33)
[2018-04-01] MEDS: Valproic Acid 250 MG CAP PO SCH ×2 (09:34→20:26)
[2018-04-01] MEDS: Insulin Glargine 20 UNITS in Pre-Filled Syringe 1 EACH SC SCH (09:41)
[2018-04-01] MEDS: Finasteride 5 MG TAB PO SCH (09:42)
--- NOTE | 2018-04-01 10:54 | PDOC.FM ---
- Subjective Subjective: Patient is doing well this morning. Has no complaints. Denies pain, n/v/d/c. No events overnight. - Objective MAR Reviewed: Yes Vital Signs & Weight: Vital Signs (12 hours) Temp Pulse Resp BP Pulse Ox 04/01/18 08:00 98 04/01/18 07:00 98.5 F 86 18 126/74 94 L Weight Admit Weight 75.41 kg Weight 78.216 kg I&O: 03/31/18 04/01/18 04/02/18 06:59 06:59 06:59 Intake Total 1050 1680 Output Total 1900 1949 Balance -850 -270 Result Diagrams: 03/29/18 06:38 03/29/18 06:38 <Lily Nicholson - Last Filed: 04/01/18 10:53> - Objective Vital Signs & Weight: Vital Signs (12 hours) Temp Pulse Resp BP Pulse Ox 04/01/18 16:39 98.3 F 83 20 135/81 94 L 04/01/18 12:48 98.5 F 94 15 127/82 91 L 04/01/18 08:00 98 04/01/18 07:00 98.5 F 86 18 126/74 94 L Weight Admit Weight 75.41 kg Weight 78.216 kg I&O: 03/31/18 04/01/18 04/02/18 06:59 06:59 06:59 Intake Total 1050 1680 Output Total 1900 1950 Balance -850 -270 Result Diagrams: 03/29/18 06:38 03/29/18 06:38 <Migue Barillas - Last Filed: 04/01/18 16:42> Phys Exam - Physical Examination Constitutional: NAD Respiratory: no wheezing, no rales, clear to auscultation bilateral Cardiovascular: RRR, no significant murmur Gastrointestinal: soft, non-tender, no distention, positive bowel sounds 1+ edema b/l Deviation from normal: at baseline AOx2 <Lily Nicholson - Last Filed: 04/01/18 10:53> Dx/Plan (1) Osteomyelitis Code(s): M86.9 - OSTEOMYELITIS, UNSPECIFIED Status: Acute (2) Sacral decubitus ulcer Code(s): L89.159 - PRESSURE ULCER OF SACRAL REGION, UNSPECIFIED STAGE Status: Acute (3) Sepsis secondary to UTI Code(s): A41.9 - SEPSIS, UNSPECIFIED ORGANISM; N39.0 - URINARY TRACT INFECTION, SITE NOT SPECIFIED Status: Acute (4) Seizure disorder Code(s): G40.909 - EPILEPSY, UNSP, NOT INTRACTABLE, WITHOUT STATUS EPILEPTICUS Status: Acute (5) Cognitive impairment Code(s): R41.89 - OTH SYMPTOMS AND SIGNS W COGNITIVE FUNCTIONS AND AWARENESS Status: Acute (6) DM2 (diabetes mellitus, type 2) Status: Acute (7) HLD (hyperlipidemia) Code(s): E78.5 - HYPERLIPIDEMIA, UNSPECIFIED Status: Acute (8) Hypothyroid Code(s): E03.9 - HYPOTHYROIDISM, UNSPECIFIED Status: Acute - Plan Plan: Osteomyelitis from chronic sacral decubitus vs UTI, sepsis resolved - Continue IV Rocephin, Vanc, and Flagyl. PICC line in place - Postop Day7 from debridement- doing well, not requiring any pain medication at this time. - continue wound care - ID consulted, appreciate recs. Urinary tract infection, recurrent with underlying urinary retention - failed voiding trial- Dr. March on board with suprapubic catheter, discussed with [facility] who would like to hold off on this and do as outpatient. - continue finasteride and tamulosin - urology, Dr. March on board, appreciate recs. - urine cx: E.coli and Proteus, sensitive to rocephin Seizure disorder - continue home Depakote Hyperlipidemia - continue home Rosuvastatin Diabetes mellitus. - Well controlled with Lantus 20U and Alogliptin 6.25mg daily. - ACHS accuchecks, hypoglycemia protocol Hypothyroidism - continue home synthroid VTE PPx: lovenox Code status: Full IVF: none, SL Dispo: d/c pending placement. <Lily Nicholson - Last Filed: 04/01/18 10:53> Attending Addendum - Attending Addendum Date/Time: 04/01/18 4196 I personally evaluated the patient and discussed the management with Dr. Nicholson. I agree with and repeated the History, Examination, Assessment and Plan documented above with any addition or exceptions noted below. <Migue Barillas - Last Filed: 04/01/18 16:42>
[2018-04-01] MEDS: cefTRIAXone\\ROCEPHIN 2 GM in Sodium Chloride 0.9% 100 ML IVPB SCH (14:53)
[2018-04-01] MEDS: Rosuvastatin 10 MG TAB PO SCH (20:26)
[2018-04-01] MEDS: Tamsulosin HCl 0.4 MG CAP PO SCH (20:27)
[2018-04-02] MEDS: Vancomycin HCl 1.25 GM in Sodium Chloride 0.9% 250 ML 250 ML IVPB SCH ×2 (04:55→18:10)
[2018-04-02] MEDS: Levothyroxine Sodium 100 MCG TAB PO SCH (04:55)
--- NOTE | 2018-04-02 06:24 | PDOC.FM ---
- Subjective Subjective: Patient resting comfortably this am. He reports no concerns or complaints. Denies pain, sob, n/v/c/d. Nursing staff without concerns. No acute events overnight. - Objective MAR Reviewed: Yes Vital Signs & Weight: Vital Signs (12 hours) Temp Pulse Resp BP Pulse Ox 04/01/18 20:00 97 04/01/18 19:00 98.4 F 89 16 135/81 96 Weight Admit Weight 75.41 kg Weight 78.216 kg I&O: 03/31/18 04/01/18 04/02/18 06:59 06:59 06:59 Intake Total 1050 1680 1300 Output Total 1900 1950 1600 Balance -850 -270 -300 Result Diagrams: 03/29/18 06:38 03/29/18 06:38 <Lily Nicholson - Last Filed: 04/02/18 08:46> - Objective Vital Signs & Weight: Vital Signs (12 hours) Temp Pulse Resp BP Pulse Ox 04/02/18 09:31 95 04/02/18 08:00 98.5 F 86 20 137/86 95 Weight Admit Weight 75.41 kg Weight 78.216 kg I&O: 04/01/18 04/02/18 04/03/18 06:59 06:59 06:59 Intake Total 1680 1300 Output Total 1950 1600 Balance -270 -300 Result Diagrams: 03/29/18 06:38 03/29/18 06:38 <Migue Barillas - Last Filed: 04/02/18 11:00> Phys Exam - Physical Examination Constitutional: NAD HEENT: moist MMs Respiratory: no wheezing, no rales, clear to auscultation bilateral Cardiovascular: RRR, no significant murmur Gastrointestinal: soft, non-tender edematous testicles b/l LE edema, 2+ in b/l feet Psychiatric: normal affect Deviation from normal: AOx2 (at his baseline) <Lily Nicholson - Last Filed: 04/02/18 08:46> Dx/Plan (1) Osteomyelitis Code(s): M86.9 - OSTEOMYELITIS, UNSPECIFIED Status: Acute (2) Sacral decubitus ulcer Code(s): L89.159 - PRESSURE ULCER OF SACRAL REGION, UNSPECIFIED STAGE Status: Acute (3) Sepsis secondary to UTI Code(s): A41.9 - SEPSIS, UNSPECIFIED ORGANISM; N39.0 - URINARY TRACT INFECTION, SITE NOT SPECIFIED Status: Acute (4) Seizure disorder Code(s): G40.909 - EPILEPSY, UNSP, NOT INTRACTABLE, WITHOUT STATUS EPILEPTICUS Status: Acute (5) Cognitive impairment Code(s): R41.89 - OTH SYMPTOMS AND SIGNS W COGNITIVE FUNCTIONS AND AWARENESS Status: Acute (6) DM2 (diabetes mellitus, type 2) Status: Acute (7) HLD (hyperlipidemia) Code(s): E78.5 - HYPERLIPIDEMIA, UNSPECIFIED Status: Acute (8) Hypothyroid Code(s): E03.9 - HYPOTHYROIDISM, UNSPECIFIED Status: Acute - Plan Plan: Osteomyelitis from chronic sacral decubitus vs UTI, sepsis resolved - Continue IV Rocephin, Vanc, and Flagyl. PICC line in place - Postop from debridement- doing well, not requiring any pain medication at this time. - continue wound care - Vanc trough yesterday 20 - ID consulted, appreciate recs. - at risk for other decubitus ulcers with LE edema and bed bound Urinary tract infection, recurrent with underlying urinary retention - failed voiding trial- Dr. March on board with suprapubic catheter, discussed with [facility] who would like to hold off on this and do as outpatient. - continue finasteride and tamulosin - urology, Dr. March on board, appreciate recs. - urine cx: E.coli and Proteus, sensitive to rocephin Seizure disorder - continue home Depakote Hyperlipidemia - continue home Rosuvastatin Diabetes mellitus. - Well controlled with Lantus 20U and Alogliptin 6.25mg daily. - ACHS accuchecks, hypoglycemia protocol Hypothyroidism - continue home synthroid VTE PPx: lovenox Code status: Full IVF: none, SL Dispo: d/c pending placement. <Lily Nicholson - Last Filed: 04/02/18 08:46> Attending Addendum - Attending Addendum Date/Time: 04/02/18 1100 I personally evaluated the patient and discussed the management with Dr. Nicholson. I agree with and repeated the History, Examination, Assessment and Plan documented above with any addition or exceptions noted below. <Migue Barillas - Last Filed: 04/02/18 11:00>
[2018-04-02] MEDS: Fish Oil 1,000 MG CAP PO SCH ×2 (09:13→21:36)
[2018-04-02] MEDS: Folic Acid 1 MG TAB PO SCH (09:13)
[2018-04-02] MEDS: Famotidine 20 MG TAB PO SCH ×2 (09:13→21:36)
[2018-04-02] MEDS: Alogliptin 6.25 MG TAB PO SCH (09:13)
[2018-04-02] MEDS: metroNIDAZOLE 500 MG TAB PO SCH ×3 (09:13→21:36)
[2018-04-02] MEDS: Gabapentin 300 MG CAP PO SCH ×3 (09:14→21:36)
[2018-04-02] MEDS: Finasteride 5 MG TAB PO SCH (09:14)
[2018-04-02] MEDS: Valproic Acid 250 MG CAP PO SCH ×2 (09:14→21:36)
[2018-04-02] MEDS: Enoxaparin Sodium 40 MG/0.4 ML SYRINGE SC SCH (09:15)
[2018-04-02] MEDS: Insulin Glargine 20 UNITS in Pre-Filled Syringe 1 EACH SC SCH (09:15)
[2018-04-02] MEDS: cefTRIAXone\\ROCEPHIN 2 GM in Sodium Chloride 0.9% 100 ML IVPB SCH (14:50)
[2018-04-02] MEDS: Tamsulosin HCl 0.4 MG CAP PO SCH (21:36)
[2018-04-02] MEDS: Rosuvastatin 10 MG TAB PO SCH (21:36)
--- NOTE | 2018-04-03 07:03 | PDOC.FM ---
- Subjective Subjective: Patient is doing well this morning. Smiling and laughing. He just finished breakfast. Has no complaints. Denies pain, sob, n/v/d. NAEO - Objective MAR Reviewed: Yes Vital Signs & Weight: Vital Signs (12 hours) Pulse Ox 04/02/18 20:00 96 Weight Admit Weight 75.41 kg Weight 78.216 kg I&O: 04/02/18 04/03/18 04/04/18 06:59 06:59 06:59 Intake Total 1300 1360 Output Total 1600 1695 Balance -300 -335 Result Diagrams: 04/03/18 07:58 04/03/18 07:58 <Lily Nicholson - Last Filed: 04/03/18 08:55> - Objective Vital Signs & Weight: Vital Signs (12 hours) Temp Pulse Resp BP Pulse Ox 04/03/18 08:00 94 L 04/03/18 07:00 98.0 F 86 18 138/83 94 L Weight Admit Weight 75.41 kg Weight 78.216 kg I&O: 04/02/18 04/03/18 04/04/18 06:59 06:59 06:59 Intake Total 1300 1360 Output Total 1600 1695 Balance -300 -905 Result Diagrams: 04/03/18 07:58 04/03/18 07:58 <Migue Barillas - Last Filed: 04/03/18 14:13> Phys Exam - Physical Examination Constitutional: NAD HEENT: moist MMs poor dentition Respiratory: no wheezing, no rales, clear to auscultation bilateral Cardiovascular: RRR, no significant murmur Deviation from normal: AO2 <Lily Nicholson - Last Filed: 04/03/18 08:55> Dx/Plan (1) Osteomyelitis Code(s): M86.9 - OSTEOMYELITIS, UNSPECIFIED Status: Acute (2) Sacral decubitus ulcer Code(s): L89.159 - PRESSURE ULCER OF SACRAL REGION, UNSPECIFIED STAGE Status: Acute (3) Sepsis secondary to UTI Code(s): A41.9 - SEPSIS, UNSPECIFIED ORGANISM; N39.0 - URINARY TRACT INFECTION, SITE NOT SPECIFIED Status: Acute (4) Seizure disorder Code(s): G40.909 - EPILEPSY, UNSP, NOT INTRACTABLE, WITHOUT STATUS EPILEPTICUS Status: Acute (5) Cognitive impairment Code(s): R41.89 - OTH SYMPTOMS AND SIGNS W COGNITIVE FUNCTIONS AND AWARENESS Status: Acute (6) DM2 (diabetes mellitus, type 2) Status: Acute (7) HLD (hyperlipidemia) Code(s): E78.5 - HYPERLIPIDEMIA, UNSPECIFIED Status: Acute (8) Hypothyroid Code(s): E03.9 - HYPOTHYROIDISM, UNSPECIFIED Status: Acute - Plan Plan: Osteomyelitis from chronic sacral decubitus vs UTI, sepsis resolved - Continue IV Rocephin, Vanc, and Flagyl. PICC line in place - Postop from debridement- doing well, not requiring any pain medication at this time. - continue wound care - most recent Vanc trough 20 - ID consulted, appreciate recs. - at risk for other decubitus ulcers with LE edema and bed bound - continue weekly labs: CBC, CMP, CRP, and vanc trough Urinary tract infection, recurrent with underlying urinary retention - failed voiding trial- Dr. March on board with suprapubic catheter, discussed with [facility] who would like to hold off on this and do as outpatient. - continue finasteride and tamulosin - urology, Dr. March on board, appreciate recs. - urine cx: E.coli and Proteus, sensitive to rocephin Seizure disorder - continue home Depakote Hyperlipidemia - continue home Rosuvastatin Diabetes mellitus. - Well controlled with Lantus 20U and Alogliptin 6.25mg daily. - ACHS accuchecks, hypoglycemia protocol Hypothyroidism - continue home synthroid VTE PPx: lovenox Code status: Full IVF: none, SL Dispo: d/c pending placement. <Lily Nicholson - Last Filed: 04/03/18 08:55> Attending Addendum - Attending Addendum Date/Time: 04/03/18 1413 I personally evaluated the patient and discussed the management with Dr. Nicholson. I agree with and repeated the History, Examination, Assessment and Plan documented above with any addition or exceptions noted below. <Migue Barillas - Last Filed: 04/03/18 14:13>
[2018-04-03] MEDS: Levothyroxine Sodium 100 MCG TAB PO SCH (07:20)
[2018-04-03] MEDS: Vancomycin HCl 1.25 GM in Sodium Chloride 0.9% 250 ML 250 ML IVPB SCH (07:20)
[2018-04-03 08:19] LABS: #Basophils 0.1 thou/uL (0.0-0.2); #Eosinphils 0.2 thou/uL (0.0-0.7); #Lymphocytes 2.8 thou/uL (1.20-3.40); #Monocytes 0.6 thou/uL (0.11-0.59); %Basophils 0.6 % (0.0-1.0); %Eosinophils 1.9 % (0.0-10.0); %Lymphocytes 28.9 % (21.0-51.0); %Monocytes 6.2 % (0.0-10.0); %Neutrophils 62.5 % (42.0-75.0); Hemoglobin 9.4 g/dL (14.0-18.0); Mean Corpuscular HGB CONC 30.2 g/dL (32.0-36.0); Mean Corpuscular Volume 86.1 fL (78.0-98.0); Mean Platelet Volume 6.3 fL (7.4-10.4); Platelet Count 280 thou/uL (130-400); RBC Distribution Width 15.9 % (11.5-14.5); Red Blood Cell (RBC) Count 3.61 mill/uL (4.70-6.10); White Blood Cell (WBC) Count 9.6 thou/uL (4.8-10.8)
[2018-04-03] MEDS: Alogliptin 6.25 MG TAB PO SCH (08:26)
[2018-04-03] MEDS: Folic Acid 1 MG TAB PO SCH (08:26)
[2018-04-03] MEDS: Famotidine 20 MG TAB PO SCH (08:26)
[2018-04-03] MEDS: metroNIDAZOLE 500 MG TAB PO SCH ×2 (08:26→15:48)
[2018-04-03] MEDS: Fish Oil 1,000 MG CAP PO SCH (08:26)
[2018-04-03] MEDS: Gabapentin 300 MG CAP PO SCH ×2 (08:26→15:48)
[2018-04-03] MEDS: Enoxaparin Sodium 40 MG/0.4 ML SYRINGE SC SCH (08:27)
[2018-04-03] MEDS: Finasteride 5 MG TAB PO SCH (08:28)
[2018-04-03 08:38] LABS: ALT (SGPT) Less than 7 U/L (8-55); AST (SGOT) 11 U/L (5-34); Alkaline Phosphatase 60 U/L (40-150); Anion Gap 11 mmol/L (10-20); BUN (Urea Nitrogen) 7 mg/dL (8.4-25.7); Bilirubin, Total 0.3 mg/dL (0.2-1.2); CRP (Inflammatory) 1.33 mg/dL (= or < 0.5); Calc. Creatinine Clearance 159 mL/min (70-130); Carbon Dioxide 25 mmol/L (23-31); Chloride 106 mmol/L (98-107); Estimated GFR-MDRD Greater than 90; Globulin 3.5 g/dL (2.4-3.5); Glucose 104 mg/dL (80-115); Potassium 3.4 mmol/L (3.5-5.1); Protein, Total 6.5 g/dL (5.8-8.1); Sodium 139 mmol/L (136-145)
[2018-04-03] MEDS: Insulin Glargine 20 UNITS in Pre-Filled Syringe 1 EACH SC SCH (08:42)
[2018-04-03] MEDS: Valproic Acid 250 MG CAP PO SCH (08:42)
--- NOTE | 2018-04-03 08:44 | DIS-2 ---
DATE OF ADMISSION: 03/20/2018 DATE OF DISCHARGE: 04/02/2018 ADMITTING ATTENDING: Dr. Madison Hunter. DISCHARGE ATTENDING: Dr. Migue Barillas. RESIDENT: Lily Nicholson. CONSULTATIONS: Pulmonology, Dr. Irwin Dumas; Urology, Dr. Kidd; General Surgery, Dr. Jarad Esqueda and Infectious Disease, Dr. Lopez. PROCEDURES/IMAGIN. Chest x-ray on 03/20/2018, no acute cardiopulmonary process. 2. Bone scan on 03/21/2018 with findings consistent with osteomyelitis involving the left ischial tuberosity. 3. Echocardiogram performed on 03/23/2018 showed ejection fraction 50%-55%, mild mitral regurgitation, sclerotic aortic valve and mild tricuspid regurgitation. 4. A decubitus wound debridement on 03/23/[address] Esqueda with findings of necrotic cavity extending down to the ischium. Debridement was 6 x 3 cm in width and 3 cm in depth. 5. PICC line placement on 03/24/2018. DISCHARGE DIAGNOSES: 1. Ischial tuberosity osteomyelitis. 2. Sepsis, resolved. 3. Sacral decubitus ulcer, status post debridement. PRIMARY DIAGNOSIS: Urinary tract infection. SECONDARY DIAGNOSES: 1. Recurrent urinary tract infections. 2. Seizure disorder. 3. Hyperlipidemia. 4. Diabetes mellitus. 5. Hypothyroidism. DISCHARGE MEDICATIONS: 1. DuoNeb 3 mL nebs q.4 hours p.r.n. 2. Sitagliptin 25 mg p.o. daily. 3. Rocephin 2 grams IVPB to complete a course until 05/03/2018. 4. Gabapentin 300 mg p.o. t.i.d. 5. Folic acid 0.4 mg 2 tablets p.o. daily. 6. Finasteride 5 mg p.o. daily. 7. Colace 100 mg p.o. daily. 8. Valproic acid 250 mg p.o. b.i.d. 9. Crestor 10 mg p.o. at bedtime. 10. Tamsulosin HCL 0.8 mg p.o. at bedtime. 11. Synthroid 100 mcg p.o. daily. 12. Ranitidine 150 mg p.o. daily. 13. Potassium chloride 20 mEq p.o. b.i.d. 14. Flagyl 500 mg p.o. t.i.d. to complete a course until 05/03/2018. 15. Vancomycin 1.25 grams IV piggyback b.i.d. to complete a course until 2017. 16. Lantus 20 units subcu q.a.m. DISCONTINUED MEDICATION: 50units Levemir b.i.d. HISTORY OF PRESENT ILLNESS/HOSPITAL COURSE: Patient is a 62-year-old male with past medical history of recurrent UTIs and decubitus ulcer who presented to ED for evaluation of pus coming out of his Roberts. He resides at [facility] and also reported decreased urine output as well as fever of 101.8 and change in mentation. On arrival, he was septic and patient was given IV fluids and antibiotics. Patient initially tachycardic to 122, T-max 99.3. Patient presented with mentation A&O x 1 and had brett pus coming from the Roberts bulb. We also noticed a worsening decubitus ulcer. Patient's initial white blood cell count 12.5 and lactate 2.2 on admission. Sepsis resolved within first two days and patient transferred out of the ICU. Urology and General surgery were consulted. Wound care was also consulted for decubitus ulcer. A bone scan was performed showing osteomyelitis with ischial tuberosity. Dr. Esqueda took the patient back for surgery for debridement of decubitus ulcer. He was on vancomycin and Rocephin. ID was consulted for antibiotic regimen. No bone culture was performed unfortunately so broad spectrum Abx were recommended by Dr. Lopez. He recommended a 6-week treatment of vancomycin, Rocephin and Flagyl. Patient had a PICC line placed for this purpose. Wound care continued to see the patient. Wound VAC was placed. For follow up, it is recommend to have weekly labs with CBC, CMP, CRP and vancomycin trough. Dr. March was consulted for recurrent UTIs and recommended changing the Roberts and a voiding trial within 3-4 days. Roberts was changed and urine cultures grew out Proteus mirabilis and E. coli. Voiding trial performed and patient failed, and discussed suprapubic catheter with Dr. March and medical power of review scheduling coordinator , . It was recommended that suprapubic catheter placement done in the hospital. Sister would like to withhold at this time and do as an outpatient. Plastic Surgery will need to be involved in his care at some point after wound is much improved for possible skin flap. He will need outpatient referral for this purpose. As far as other current medical conditions, he was treated with his home regimens with the exception of his diabetes. He had multiple hypoglycemic episodes with decreasing insulin regimen to the point where he is tolerating an insulin regimen, Lantus 20 units subcu once daily and alogliptin 6.25 mg here in the hospital. Recommend continued Januvia as outpatient and insulin management. May need to titrate with changing diet. Patient is stable for discharge, but it did take quite a while trying to find new placement. He will go to swing bed in [place] with plans to return to [facility] after IV antibiotics and wound vac discontinued. DISPOSITION: Stable. DISCHARGE INSTRUCTIONS: 1. Location: Swing bed in [place]. 2. Diet: ADA diet with thickened liquids, pureed. 3. Activity: As tolerated. 4. Follow up with Dr. Kidd within [address] Tanmay Whitlock upon return to [facility] and Dr. Lopez within 6 weeks' time. Of note, Plastic Surgery will need to get involved for possible skin flap per Dr. Esqueda. Again, has recommended outpatient evaluation. MAIKEL
[2018-04-03] MEDS ORDERED: Potassium Chloride 20 MEQ TAB PO SCH (09:00)
[2018-04-03] MEDS: cefTRIAXone\\ROCEPHIN 2 GM in Sodium Chloride 0.9% 100 ML IVPB SCH (15:48)
[2018-04-03 15:56] VITALS: BP 161/95; TEMP 97.8
== END 2018-04-03 17:34 | disposition swing bed (61) | DRG 981 ==
LOC: ERS 02:10 → T4-B 04:51 → IMCU/EMU 12:43 → T4-A 03-21 18:31
PROVIDERS: ADMIT Family Medicine; ATTEND Family Medicine
PROC: 0T2BX0Z Change Drainage Device in Bladder, External Approach (ICD-10-PCS; 2018-03-20)
PROC: 0QB30ZZ Excision of Left Pelvic Bone, Open Approach (ICD-10-PCS; principal; 2018-03-23)
PROC: 02HV33Z Insertion of Infusion Device into Superior Vena Cava, Percutaneous Approach (ICD-10-PCS; 2018-03-24)
PROC: B548ZZA Ultrasonography of Superior Vena Cava, Guidance (ICD-10-PCS; 2018-03-24)
DX: T83.511A Infection and inflammatory reaction due to indwelling urethral catheter, initial encounter (principal); L89.324 Pressure ulcer of left buttock, stage 4; A41.51 Sepsis due to Escherichia coli [E. coli]; R65.21 Severe sepsis with septic shock; N17.9 Acute kidney failure, unspecified; M86.652 Other chronic osteomyelitis, left thigh; G82.20 Paraplegia, unspecified; N39.0 Urinary tract infection, site not specified; E78.5 Hyperlipidemia, unspecified; G40.909 Epilepsy, unspecified, not intractable, without status epilepticus; R41.89 Other symptoms and signs involving cognitive functions and awareness; R33.9 Retention of urine, unspecified; E87.5 Hyperkalemia; F79 Unspecified intellectual disabilities; K21.9 Gastro-esophageal reflux disease without esophagitis; B96.4 Proteus (mirabilis) (morganii) as the cause of diseases classified elsewhere; Z16.29 Resistance to other single specified antibiotic; Y84.6 Urinary catheterization as the cause of abnormal reaction of the patient, or of later complication, without mention of misadventure at the time of the procedure; Y92.129 Unspecified place in nursing home as the place of occurrence of the external cause; E11.42 Type 2 diabetes mellitus with diabetic polyneuropathy; Z74.01 Bed confinement status; E11.69 Type 2 diabetes mellitus with other specified complication; G47.33 Obstructive sleep apnea (adult) (pediatric)
CPT/HCPCS: 36415; 36416; 36569; 51702; 71045; 78315; 80048; 80053; 80202; 81003; 81015; 82553; 83605; 84145; 84484; 85025; 85610; 85652; 86140; 87040; 87077; 87086; 87149; 87186; 87804; 88304; 90471; 90732; 93005; 93010; 93306; 94640; 96361; 96365; A9503; C1751; G0009; G8978-GP-CM; G8979-GP-CM; G8980-GP-CM; G8987-GO-CM; G8988-GO-CM; G8989-GO-CM; G8996-GN-CK; G8997-GN-CK; J0696; J1644; J1650; J2001; J2250; J2270; J2543; J2704; J3010; J3370; J7050; J7611; S0028